=== PATIENT | female | born 2000 | race Caucasian/White ===

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

== ENCOUNTER 2021-03-21 17:45 | Emergency (ER) | payer OTHER, SELFPAY ==
[2021-03-21 17:55] VITALS: BP 130/83; PULSE 81; RESP 18; TEMP 36.4; O2SAT 100
--- NOTE | 2021-03-21 18:04 | ED.FEMALEGU ---
HPI - Female Genitourinary General Chief complaint: Urogenital-Female Stated complaint: UTI symptoms Time Seen by Provider: 03/21/21 17:58 Source: patient Mode of arrival: ambulatory Limitations: no limitations History of Present Illness HPI Narrative: Patient presents with frequent urination, burning sensation started yesterday. Patient denies any fever, chills, nausea, vomiting, flank pain or lower abdominal pain. Patient reports some blood in the urine. History of similar symptoms at 1-1/2 months ago. Patient denies or vaginal bleeding or discharge. Related Data Allergies Allergy/AdvReac Type Severity Reaction Status Date / Time Latex, Natural Rubber Allergy Rash Verified 12/24/20 11:52 Review of Systems Review of Systems: Narrative: CONSTITUTIONAL: Denies fever, chills, or sweats. EYES: Denies visual changes, redness, or discharge. ENT: Denies rhinorrhea, congestion, sore throat, or otalgia. CARDIOVASCULAR: Denies chest pain, palpitations, or edema. RESPIRATORY: Denies cough or dyspnea. GASTROINTESTINAL: Denies abdominal pain, nausea, vomiting, or diarrhea. GENITOURINARY: Denies dysuria or hematuria. SKIN: Denies rash or itching. MUSCULOSKELETAL: Denies back pain, joint pain, or myalgia. NEUROLOGIC: Denies headache, numbness, or weakness. PSYCHIATRIC: Denies anxiety or depression. PMFSH Past Medical History Medical History Asthma Migraines Surgical History Surgical History Hx of tympanostomy tubes Social History Social History Smoking status: Never smoker Alcohol intake: never Substance use: never Gender identity (if verbalized by the patient): Female Exam Narrative: Exam Narrative: General appearance: Well-developed, well-nourished Skin: Normal color Chest and respiratory: Airway patent, no respiratory distress, no accessory muscle use Heart: Regular rate/rhythm Abdomen: Soft, nontender, no organomegaly, quiet bowel sounds Neurologic: Alert and oriented ?3, SERVICE ENGINEER is normal as tested, no gross motor deficit Course Course Emergency Course: Stable MDM - Female Genitourinary MDM Narrative Medical decision making narrative: Classic presentation of cystitis. No blood work-up required at this time. UA ordered. Patient will be discharged on Macrobid and Pyridium. Differential Diagnosis Differential diagnosis: Likely urinary tract infection and cystitis Critical Care Time Critical Care Time Critical Care Time: No Discharge Plan Discharge Clinical Impression: Urinary tract infection Qualifiers: Urinary tract infection type: site unspecified Hematuria presence: with hematuria Qualified Code(s): N39.0 - Urinary tract infection, site not specified Patient Disposition: Home, Self-Care Condition: Stable Instructions: Antibiotic Form, Urinary Tract Infection in Women (ED) Additional Instructions: Return if symptoms are worsening , call your family physician for appointment, take Tylenol as as needed for aches and pain, continue home medications. Prescriptions: New nitrofurantoin monohyd/m-cryst [Macrobid] 100 mg capsule 100 mg PO Q12H 5 Days Qty: 10 RF: 0 phenazopyridine [Pyridium] 200 mg tablet 200 mg PO TID PRN (Reason: pain) Qty: 6 RF: 0 No Action loratadine [Claritin] 10 mg tablet 10 mg PO DAILY PRN (Reason: allergy symptoms) Qty: 10 RF: 0 famotidine [Pepcid] 20 mg tablet 20 mg PO BID Qty: 14 RF: 0 Follow-up/Referrals: Aiden Tyler, [Primary Care Provider] -
[2021-03-21 18:15] VITALS: BP 132/80; PULSE 80; RESP 18; O2SAT 100
[2021-03-21 18:35] LABS: Add Urine Microscopic? YES; Appearance Urine Cloudy (Clear); Bacteria Urine Trace /hpf; Bilirubin Urine Negative (Negative); Blood Urine 2+ (Negative); Color Urine Yellow (Yellow); Glucose Urine UA Negative (Negative); Ketones Urine Negative (Negative); Leukocyte Esterase Ur 3+ LEU/UL (Negative); Mucus Urine Rare /lpf; Nitrate Urine Negative (Negative); Protein Urine 1+ mg/dL (Negative); RBC Urine >75 /hpf (0-2); Specific Grav Ur 1.013 (1.001-1.035); Squamous Epithelial Cell Urine Rare /hpf (Few); Urobilinogen Urine Negative mg/dL (<2.0); WBC Clumps Urine Present /HPF; WBC Urine >75 /hpf
== END 2021-03-21 18:15 | disposition home or self-care (01) ==
LOC: ANHED 18:12
PROVIDERS: Emergency Provider Emergency Medicine; PCP Pediatrics
DX: N39.0 Urinary tract infection, site not specified (principal); J45.909 Unspecified asthma, uncomplicated
CPT/HCPCS: 81001; 87077; 87086; 87088; 87186; 99283

== ENCOUNTER 2021-08-23 01:15 | Emergency (ER) | payer OTHER, SELFPAY ==
[2021-08-23] VITALS (7 sets, daily range): BP systolic 99–111; BP diastolic 42–69; PULSE 74–95; RESP 17–20; TEMP 37.1; O2SAT 98–100
--- NOTE | 2021-08-23 01:38 | ECG_ITS ---
Measurements Intervals [place] Rate: 73 P: 27 [place]: 148 QRS: 29 QRSD: 85 T: 16 QT: 376 QTc: 415 Interpretive Statements SINUS RHYTHM WITH SINUS ARRHYTHMIA BASELINE ARTIFACT- I, II, III, AVR, AVL, AVF, V1, V3-V6 NORMAL ECG Electronically Signed On 08-23-2021 6:55:27 [employer]ICKERTRON CHECKER by Teo Paris D.O.
[2021-08-23] MEDS: SODIUM CHLORIDE 0.9% IV 1,000 ML 999 ML IV CONT (02:07)
[2021-08-23 02:09] LABS: Basophils Percent Auto 0.4 % (0.2-1.2); Eosinophils Absolute Auto 0.3 K/mm3 (0-0.3); Eosinophils Percent Auto 3.8 % (0-4.4); Hematocrit 34.7 % (37.0-47.0); Hemoglobin 12.4 g/dL (12.0-15.0); Immature Granulocyte Absolute 0.03 K/mm3 (0.00-0.031); Immature Granulocyte Percent A 0.4 % (0-0.5); Lymphocytes Absolute Auto 2.13 K/mm3 (0.9-3.2); Lymphocytes Percent Auto 25.4 % (18.3-44.2); Mean Corpuscular HGB Conc 35.7 g/dl (32-36); Mean Corpuscular Hemoglobin 31.2 pg (26-34); Mean Corpuscular Volume 87.2 fl (80-100); Mean Platelet Volume 10.1 fl (7.4-10.4); Monocytes Absolute Auto 0.6 K/mm3 (0.1-0.6); Neutrophils Absolute Auto 5.3 K/mm3 (1.3-6.7); Platelet Count Result 248 k/mm3 (150-375); Red Blood Count 3.98 M/mm3 (4.2-5.4); Red Cell Distribution Width 12.5 % (11.5-14.5); White Blood Count 8.4 K/mm3 (4.5-10.0)
[2021-08-23 02:19] LABS: Alanine Aminotransferase 14 U/L (4-35); Albumin Level 4.1 g/dL (3.7-5.6); Alkaline Phosphatase 45 U/L (45-116); Anion Gap 7 mmol/L (8-16); Aspartate Amino Transferase 27 U/L (14-36); Bilirubin,Total 0.4 mg/dL (0.2-1.3); Blood Urea Nitrogen 11 mg/dL (8-21); Calcium 9.5 mg/dL (8.9-10.7); Carbon Dioxide 23 mmol/L (22-30); Chloride 101 mmol/L (98-107); Estimated CRCL calculation 151 ml/min; Estimated Glomerular Filt Rate > 60; Glucose 96 mg/dL (65-110); Potassium 3.6 mmol/L (3.4-5.0); Sodium 131 mmol/L (134-143)
--- NOTE | 2021-08-23 02:19 | ED.GENADULT ---
HPI - General Adult General Chief complaint: Syncope Stated complaint: syncope Time Seen by Provider: 08/23/21 01:23 History of Present Illness HPI narrative: Patient a 20-year-old female who presents the emergency department with chief complaint of syncopal episode. The patient reports that she is been having some constipation issues and was taking a shower while in the shower started getting lightheaded took a deep breath held it and then briefly passed out. The patient reports afterwards she had to defecate patient states that now she feels a little just generalized weakness afterwards the patient reports no confusion afterwards no loss of bowel or bladder function no generalized shaking afterwards. Patient reports he had no trauma and did not injure herself afterwards. The patient denies vaginal bleeding or vaginal discharge Related Data Home Medications Medication Instructions Recorded Confirmed One-A-Day -1 1 tab-cap PO DAILY 08/23/21 08/23/21 Allergies Allergy/AdvReac Type Severity Reaction Status Date / Time Latex, Natural Rubber Allergy Rash Verified 12/24/20 11:52 Review of Systems Review of Systems: A 10 system review of systems was completed on the patient and is negative except for what is stated in the HPI. Nursing and ancillary documentation was reviewed. [facility] Past Medical History Medical History Asthma Migraines Surgical History Surgical History Hx of tympanostomy tubes Social History Social History Smoking status: Never smoker Alcohol intake: never Substance use: never Gender identity (if verbalized by the patient): Female Exam Narrative: GENERAL: Well-appearing, well-nourished, and in no acute distress. HEAD: Normocephalic, atraumatic. EYES: PERRLA and EOMI. ENT: Nares clear, no rhinorrhea or epistaxis. Mucous membranes moist. NECK: Supple. CHEST: Clear to auscultation. No respiratory distress. HEART: Regular rate and rhythm. No murmur heard. Normal peripheral pulses. ABDOMEN: Soft, nontender, nondistended, normal active bowel sounds. EXTREMITIES: Normal range of motion. No edema. SKIN: Warm, dry, no rash. NEURO: No focal deficits. Alert and oriented x3. PSYCH: Normal mood and affect. Course Course Emergency Course: EKG is sinus rhythm rate of [address] elevation or ST depression Vital Signs Vital signs: Vital Signs Pulse Rate 95 08/23/21 01:24 Respiratory Rate 20 08/23/21 01:24 Pulse Oximetry 100 08/23/21 01:24 Temperature 37.1 C 08/23/21 01:26 Pulse Rate 88 08/23/21 01:35 Respiratory Rate 19 08/23/21 01:34 Blood Pressure 111/69 08/23/21 01:34 Pulse Oximetry 100 08/23/21 01:34 Medical Decision Making Vital Signs Vital Signs: Vital Signs Pulse Rate 95 08/23/21 01:24 Respiratory Rate 20 08/23/21 01:24 Pulse Oximetry 100 08/23/21 01:24 Temperature 37.1 C 08/23/21 01:26 Pulse Rate 88 08/23/21 01:35 Respiratory Rate 19 08/23/21 01:34 Blood Pressure 111/69 08/23/21 01:34 Pulse Oximetry 100 08/23/21 01:34 Lab Data Result diagrams: 08/23/21 02:04 08/23/21 02:04 Labs: Lab Results 08/23/21 08/23/21 08/23/21 Range/Units 02:04 02:04 02:49 WBC 8.4 (4.5-10.0) K/mm3 RBC 3.98 L (4.2-5.4) M/mm3 Hgb 12.4 (12.0-15.0) g/dL Hct 34.7 L (37.0-47.0) % MCV 87.2 (80-100) fl MCH 31.2 (26-34) pg MCHC 35.7 (32-36) g/dl RDW 12.5 (11.5-14.5) % Plt Count 248 (150-375) k/mm3 MPV 10.1 (7.4-10.4) fl Immature Gran % (Auto) 0.4 (0-0.5) % Neut % (Auto) 63.0 (45.5-73.1) % Lymph % (Auto) 25.4 (18.3-44.2) % Schley % (Auto) 7.0 (2.6-8.5) % Eos % (Auto) 3.8 (0-4.4) % Baso % (Auto) 0.4 (0.2-1.2) % Lymph # (Auto) 2.13 (
[2021-08-23 03:00] LABS: Add Urine Microscopic? YES; Appearance Urine Cloudy (Clear); Bacteria Urine 2+ /hpf; Bilirubin Urine Negative (Negative); Blood Urine Negative (Negative); Color Urine Yellow (Yellow); Glucose Urine UA Negative (Negative); Ketones Urine Trace mg/dL (Negative); Leukocyte Esterase Ur Negative LEU/UL (Negative); Mucus Urine Rare /lpf; Nitrate Urine Negative (Negative); Protein Urine Negative (Negative); RBC Urine 0-2 /hpf (0-2); Specific Grav Ur 1.018 (1.001-1.035); Squamous Epithelial Cell Urine Many /hpf (Few); Urobilinogen Urine Negative mg/dL (<2.0); WBC Urine 0-3 /hpf
== END 2021-08-23 03:55 | disposition home or self-care (01) ==
PROVIDERS: Emergency Provider Emergency Medicine; PCP Pediatrics
DX: R55 Syncope and collapse (principal); J45.909 Unspecified asthma, uncomplicated
CPT/HCPCS: 36415; 80053; 81001; 85025; 93005; 96360; 96361; 99283; J7030

== ENCOUNTER → 2021-09-27 09:44 | Outpatient (CLI) | payer OTHER, SELFPAY ==
[2021-09-27 21:23] LABS: SARS-CoV-2 RNA PCR Negative
== END ==
PROVIDERS: Visit Provider Pediatrics
DX: J06.9 Acute upper respiratory infection, unspecified (principal); Z20.822 Contact with and (suspected) exposure to COVID-19
CPT/HCPCS: C9803; U0003; U0005

== ENCOUNTER 2021-10-12 07:17 | Outpatient (RCR) | payer OTHER, SELFPAY ==
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
--- NOTE | 2021-10-14 08:49 | PCPTNOTE ---
Patient did not show up for scheduled appointment this date. Left message regarding her next visit.
--- NOTE | 2021-10-19 13:59 | PCPTNOTE ---
Patient did not show up for scheduled appointment this date. Called and had to leave a message.
--- NOTE | 2021-10-21 13:37 | PCPTNOTE ---
Patient did not show up for scheduled appointment this date. Was starting to call her, when she called 20 mins after here appointment, to see rescheduling her appointment, because, she thought her appointment was later, then, it was because she was stuck at the Dr's office. Patient was told her re-eval is on 10/26/21 at 9am, and if she does not attend she will be discharged.
--- NOTE | 2021-10-26 09:09 | PCPTNOTE ---
Patient called & cancelled scheduled appointment this date due to work. She did not reschedule. She has not f/u with any of her visits.
--- NOTE | 2021-11-02 08:08 | PCPTNOTE ---
Admitting Provider: Attending Provider: Radha Gould MD Patient:Erendira Lindo Date of :2000 Physical Therapy Discharge Note Patient has not returned for any further treatments since initial evaluation on 10/12/2021, therefore she will be discharged at this time. She had a 3 no show or cancelled visits. The goals have been not met due to did not return for her follow up visits. Thank you for referring this patient to [facility]. Please review, sign, date and return this discharge summary PAMELLA. I have been updated about the patient's current status and I agree with discharge from the above service at this time. Referring Physician Date
== END 2021-11-03 08:21 | disposition home or self-care (01) ==
LOC: ANHPT 07:17
PROVIDERS: PCP Obstetrics & Gynecology; Visit Provider Obstetrics & Gynecology
DX: M54.50 Low back pain, unspecified (principal)
CPT/HCPCS: 97110; 97161

== ENCOUNTER → 2021-10-27 09:33 | Outpatient (CLI) | payer OTHER, SELFPAY ==
[2021-10-27 17:57] LABS: SARS-CoV-2 RNA PCR Negative
== END ==
PROVIDERS: PCP Nurse Practitioner Family; Visit Provider Obstetrics & Gynecology
DX: R06.00 Dyspnea, unspecified (principal); Z20.822 Contact with and (suspected) exposure to COVID-19
CPT/HCPCS: C9803; U0003; U0005

== ENCOUNTER 2021-11-08 23:47 | Observation (INO) | payer OTHER, SELFPAY ==
--- NOTE | 2021-11-08 23:47 | OBADM ---
This patient, Erendira Lindo, admitted to the OB room OB Post 116 for observation. Patient/family oriented to hospital policies and general routines including ID bracelet, bed and alarms, visiting hours, pain management, procedures, bathroom and other care routines, personal items, smoking policy, room service/diet, and visiting hours. Patient/Family are encouraged to report perceived risks to care and to ask questions if they do not understand what they are told or what they should do.
[2021-11-09] VITALS: BMI 33.7
[2021-11-09 00:07] VITALS: BP 123/81; PULSE 109
[2021-11-09 00:45] LABS: Add Urine Microscopic? NO; Appearance Urine Clear (Clear); Bilirubin Urine Negative (Negative); Blood Urine Negative (Negative); Color Urine Yellow (Yellow); Glucose Urine UA Negative (Negative); Ketones Urine Negative (Negative); Leukocyte Esterase Ur Negative LEU/UL (NEGATIVE); Nitrate Urine Negative (Negative); Protein Urine Negative (Negative); Specific Grav Ur 1.018 (1.001-1.035); Urobilinogen Urine Negative mg/dL (<2.0)
--- NOTE | 2021-12-02 07:44 | P.PNOB_ITS ---
OB - Triage/Final Diagnosis Visit Information Comments/Additional reasons for admission: I have assessed the risk for this patient, Erendira Lindo, and determined that she would benefit from observation care. Evaluation Laboratory results: Laboratory Tests 11/09/21 00:10 Urine Color Yellow Urine Appearance Clear Urine pH 6.0 Ur Specific [place] 1.018 Urine Protein Negative Urine Glucose (UA) Negative Urine Ketones Negative Ur Blood (Man) Negative Urine Nitrate Negative Urine Bilirubin Negative Urine Urobilinogen Negative Ur Leukocyte Esterase Negative Final Diagnosis (1) False labor: Code(s): O47.9 - False labor, unspecified Status: Acute
== END 2021-11-09 01:10 | disposition home or self-care (01) ==
PROVIDERS: Advanced Practice Midwife; Admitting Provider Obstetrics & Gynecology; PCP Nurse Practitioner Family; Visit Provider Obstetrics & Gynecology
DX: O47.03 False labor before 37 completed weeks of gestation, third trimester (principal); Z3A.26 26 weeks gestation of pregnancy
CPT/HCPCS: 81003; 87086; G0378; G0379

== ENCOUNTER 2021-11-13 00:44 | Outpatient (RCR) | payer OTHER, SELFPAY ==
[2021-11-13 04:17] VITALS: BP 114/64; PULSE 78
== END 2022-02-11 23:59 | disposition home or self-care (01) ==
LOC: ANHOBOP 00:44
PROVIDERS: PCP Nurse Practitioner Family; Visit Provider Obstetrics & Gynecology
DX: O36.8120 Decreased fetal movements, second trimester, not applicable or unspecified (principal); O99.892 Other specified diseases and conditions complicating childbirth; Z3A.27 27 weeks gestation of pregnancy
CPT/HCPCS: 59025

== ENCOUNTER 2021-12-20 14:53 | Observation (INO) | payer OTHER, SELFPAY ==
[2021-12-20 15:15] VITALS: BP 111/77; PULSE 129
--- NOTE | 2021-12-20 15:15 | OBADM ---
This patient, Erendira Lindo, admitted to the OB room OB Post 117 for observation. Patient/family oriented to hospital policies and general routines including ID bracelet, bed and alarms, visiting hours, pain management, procedures, bathroom and other care routines, personal items, smoking policy, room service/diet, and visiting hours. Patient/Family are encouraged to report perceived risks to care and to ask questions if they do not understand what they are told or what they should do.
[2021-12-20 15:30] VITALS: BP 120/78; PULSE 108
[2021-12-20 15:56] LABS: Basophils Percent Auto 0.2 % (0.2-1.2); Eosinophils Absolute Auto 0.2 K/mm3 (0-0.3); Hematocrit 32.8 % (37.0-47.0); Hemoglobin 11.3 g/dL (12.0-15.0); Immature Granulocyte Absolute 0.06 K/mm3 (0.00-0.031); Immature Granulocyte Percent A 0.7 % (0-0.5); Lymphocytes Absolute Auto 1.78 K/mm3 (0.9-3.2); Lymphocytes Percent Auto 19.9 % (18.3-44.2); Mean Corpuscular HGB Conc 34.5 g/dl (32-36); Mean Corpuscular Hemoglobin 29.7 pg (26-34); Mean Corpuscular Volume 86.3 fl (80-100); Mean Platelet Volume 10.4 fl (7.4-10.4); Monocytes Absolute Auto 0.9 K/mm3 (0.1-0.6); Monocytes Percent Auto 10.3 % (2.6-8.5); Neutrophils Percent Auto 66.9 % (45.5-73.1); Platelet Count Result 264 k/mm3 (150-375); Red Cell Distribution Width 12.5 % (11.5-14.5)
[2021-12-20 16:10] LABS: Alanine Aminotransferase 11 U/L (4-35); Albumin Level 3.4 g/dL (3.5-5.1); Alkaline Phosphatase 90 U/L (38-126); Anion Gap 6 mmol/L (8-16); Aspartate Amino Transferase 21 U/L (14-36); Bilirubin,Total 0.2 mg/dL (0.2-1.3); Blood Urea Nitrogen 9 mg/dL (7-17); Carbon Dioxide 23 mmol/L (22-30); Chloride 105 mmol/L (98-107); Estimated Glomerular Filt Rate > 60; Glucose 108 mg/dL (65-110); Potassium 3.9 mmol/L (3.4-5.0); Sodium 134 mmol/L (137-145); Uric Acid 4.3 mg/dL (2.5-7.5)
[2021-12-20 16:19] LABS: Add Urine Microscopic? YES; Appearance Urine Cloudy (Clear); Bacteria Urine Trace /hpf; Bilirubin Urine Negative (Negative); Blood Urine Negative (Negative); Color Urine Yellow (Yellow); Glucose Urine UA Negative (Negative); Ketones Urine Negative (Negative); Leukocyte Esterase Ur Trace LEU/UL (NEGATIVE); Mucus Urine Rare /lpf; Nitrate Urine Negative (Negative); Protein Urine Negative (Negative); Squamous Epithelial Cell Urine Few /hpf (Few); Urobilinogen Urine Negative mg/dL (<2.0)
[2021-12-20 16:22] LABS: Creatinine Urine 50.2 mg/dL; Total Protein Urine Random 15 mg/dL
--- NOTE | 2021-12-31 09:38 | PM.OBTRLD ---
OB - Triage/Final Diagnosis Visit Information Comments/Additional reasons for admission: I have assessed the risk for this patient, Erendira Lindo, and determined that she would benefit from observation care. Evaluation Laboratory results: Laboratory Tests 12/20/21 12/20/21 12/20/21 15:45 15:45 15:45 WBC 9.0 RBC 3.80 L Hgb 11.3 L Hct 32.8 L MCV 86.3 MCH 29.7 MCHC 34.5 RDW 12.5 Plt Count 264 MPV 10.4 Immature Gran % (Auto) 0.7 H Neut % (Auto) 66.9 Lymph % (Auto) 19.9 Early % (Auto) 10.3 H Eos % (Auto) 2.0 Baso % (Auto) 0.2 Lymph # (Auto) 1.78 Early # (Auto) 0.9 H Eos # (Auto) 0.2 Baso # (Auto) 0.0 Abs Immat Gran (auto) 0.06 H Absolute Neuts (auto) 6.0 Absolute Nucleated RBC 0.0 Nucleated RBC % 0.0 Sodium 134 L Potassium 3.9 Chloride 105 Carbon Dioxide 23 Anion Gap 6 L BUN 9 Creatinine 0.60 L Estim Creat Clear Calc Not Reportable Estimated GFR > 60 Glucose 108 Uric Acid 4.3 Calcium 9.0 Total Bilirubin 0.2 AST 21 ALT 11 Alkaline Phosphatase 90 Total Protein 6.0 L Albumin 3.4 L Urine Color Yellow Urine Appearance Cloudy H Urine pH 7.0 Ur Specific Benton 1.010 Urine Protein Negative Urine Glucose (UA) Negative Urine Ketones Negative Ur Blood (Man) Negative Urine Nitrate Negative Urine Bilirubin Negative Urine Urobilinogen Negative Ur Leukocyte Esterase Trace H Urine RBC 3-5 H Urine WBC 4-6 H Ur Squamous Epith Cells Few Urine Bacteria Trace Urine Mucus Rare U Random Total Protein Urine Creatinine Protein/Creat Ratio 2 12/20/21 15:45 WBC RBC Hgb Hct MCV MCH MCHC RDW Plt Count MPV Immature Gran % (Auto) Neut % (Auto) Lymph % (Auto) Early % (Auto) Eos % (Auto) Baso % (Auto) Lymph # (Auto) Early # (Auto) Eos # (Auto) Baso # (Auto) Abs Immat Gran (auto) Absolute Neuts (auto) Absolute Nucleated RBC Nucleated RBC % Sodium Potassium Chloride Carbon Dioxide Anion Gap BUN Creatinine Estim Creat Clear Calc Estimated GFR Glucose Uric Acid Calcium Total Bilirubin AST ALT Alkaline Phosphatase Total Protein Albumin Urine Color Urine Appearance Urine pH Ur Specific Benton Urine Protein Urine Glucose (UA) Urine Ketones Ur Blood (Man) Urine Nitrate Urine Bilirubin Urine Urobilinogen Ur Leukocyte Esterase Urine RBC Urine WBC Ur Squamous Epith Cells Urine Bacteria Urine Mucus U Random Total Protein 15 Urine Creatinine 50.2 Protein/Creat Ratio 2 0.30 H Final Diagnosis (1) Fall: Code(s): W19.XXXA - Unspecified fall, initial encounter Status: Acute
== END 2021-12-20 21:09 | disposition home or self-care (01) ==
PROVIDERS: Advanced Practice Midwife; Admitting Provider Obstetrics & Gynecology; PCP Nurse Practitioner Family; Visit Provider Obstetrics & Gynecology
DX: O26.893 Other specified pregnancy related conditions, third trimester (principal); W19.XXXA Unspecified fall, initial encounter; Z3A.32 32 weeks gestation of pregnancy
CPT/HCPCS: 36415; 80053; 81001; 82570; 84156; 84550; 85025; 87086; 87088; G0378; G0379

== ENCOUNTER 2021-12-28 23:28 | Observation (INO) | payer OTHER, SELFPAY ==
--- NOTE | 2021-12-28 22:11 | OBADM ---
This patient, Erendira Lindo, admitted to the OB room OB Post 115 for observation. Patient/family oriented to hospital policies and general routines including ID bracelet, bed and alarms, visiting hours, pain management, procedures, bathroom and other care routines, personal items, smoking policy, room service/diet, and visiting hours. Patient/Family are encouraged to report perceived risks to care and to ask questions if they do not understand what they are told or what they should do.
[2021-12-28 22:29] VITALS: BP 119/65; PULSE 126
[2021-12-28 22:30] VITALS: TEMP 36.9; BMI 35.1
[2021-12-28 23:48] LABS: Add Urine Microscopic? YES; Appearance Urine Cloudy (Clear); Bacteria Urine 1+ /hpf; Bilirubin Urine Negative (Negative); Blood Urine Negative (Negative); Color Urine Yellow (Yellow); Glucose Urine UA Negative (Negative); Ketones Urine Negative (Negative); Leukocyte Esterase Ur Trace LEU/UL (NEGATIVE); Nitrate Urine Negative (Negative); Protein Urine Negative (Negative); RBC Urine 0-2 /hpf (0-2); Squamous Epithelial Cell Urine Moderate /hpf (Few); Urobilinogen Urine Negative mg/dL (<2.0)
[2021-12-28 23:58] LABS: Specific Grav Ur 1.004 (1.001-1.035)
--- NOTE | 2021-12-30 16:52 | P.PNOB_ITS ---
OB - Triage/Final Diagnosis Visit Information Date of evaluation: 12/28/21 Reason for evaluation: threatened labor Comments/Additional reasons for admission: I have assessed the risk for this patient, Erendira Lindo, and determined that she would benefit from ob servation care. Evaluation Laboratory results: Laboratory Tests 12/28/21 23:31 Urine Color Yellow Urine Appearance Cloudy H Urine pH 6.0 Ur Specific [place] 1.004 Urine Protein Negative Urine Glucose (UA) Negative Urine Ketones Negative Ur Blood (Man) Negative Urine Nitrate Negative Urine Bilirubin Negative Urine Urobilinogen Negative Ur Leukocyte Esterase Trace H Urine RBC 0-2 Urine WBC 4-6 H Ur Squamous Epith Cells Moderate H Urine Bacteria 1+ H
== END 2021-12-29 00:53 | disposition home or self-care (01) ==
LOC: ANHOBOP 23:28 → ANHOBPP 23:28
PROVIDERS: Advanced Practice Midwife; Admitting Provider Obstetrics & Gynecology; PCP Nurse Practitioner Family; Visit Provider Obstetrics & Gynecology
DX: O47.03 False labor before 37 completed weeks of gestation, third trimester (principal); Z3A.33 33 weeks gestation of pregnancy
CPT/HCPCS: 81001; 84112; 87086; G0378; G0379

== ENCOUNTER 2022-01-26 16:55 | Observation (INO) | payer OTHER, SELFPAY ==
--- NOTE | 2022-01-28 07:42 | P.PNOB_ITS ---
OB - Triage/Final Diagnosis Visit Information Date of evaluation: 01/27/22 Reason for evaluation: threatened labor Comments/Additional reasons for admission: I have assessed the risk for this patient, Erendira Lindo, and determined that she would benefit from ob servation care.
== END 2022-01-26 18:45 | disposition home or self-care (01) ==
PROVIDERS: Admitting Provider Obstetrics & Gynecology; PCP Nurse Practitioner Family; Visit Provider Obstetrics & Gynecology
DX: O42.90 Premature rupture of membranes, unspecified as to length of time between rupture and onset of labor, unspecified weeks of gestation (principal); O26.899 Other specified pregnancy related conditions, unspecified trimester; R10.2 Pelvic and perineal pain; Z3A.00 Weeks of gestation of pregnancy not specified
CPT/HCPCS: 84112; G0378; G0379

== ENCOUNTER 2022-02-03 16:03 | Inpatient (IN) | payer OTHER, SELFPAY ==
--- OUTSIDE RECORDS SUMMARY | 2022-02-03 16:10 | XMS_ITS | Encounter Summary ---
:2000 Author Care Team Providers Name Role Phone Anneliese Malik [facility] Primary Care Provider [phone] Reason for Visit None recorded. Assessment and Plan 1. Maternal obesity complicating , childbirth and the puerperium, antepartum ? US, obstetric, follow-up Discussion Note: None recorded.Patient educational handouts: No information available. Plan of Care Reminders Provider Appointments Ob Routine Bianca Cage, 02/09/2022 CNM 10:45AM Lab None ? ? recorded. Referral None ? ? recorded. Procedures None ? ? recorded. Surgeries None ? ? recorded. Imaging , [place] Obstetric, Follow-up 01/28/2022 Medications Name Start Date ? ? albuterol sulfate HFA 90 mcg/actuation aerosol inhaler ? One A Day Women's DHA ? Qvar RediHaler 40 mcg/actuation HFA breath activated a erosol ? INHALE 2 PUFFS BY MOUTH TWICE DAILY sertraline 50 mg tablet ? zolpidem 5 mg tablet ? Take 1 tablet every day by oral route. Medications Administered None recorded. Vitals None recorded. Results Lab Results None recorded. Allergies Code Code System Name Reaction Severity Onset
--- OUTSIDE RECORDS SUMMARY | 2022-02-03 16:10 | XMS_ITS ---
:2000 Author Care Team Providers Name Role Phone PATIRCK COUGHLIN [facility] Primary Care Provider [phone] Allergies Code Code System Name Reaction Severity Status Onset NKDA ? Notes: Latex gloves red and itch y skin Medications Name Status Start Date Stop Date ? ? albuterol sulfate HFA 90 mcg/actuation aerosol inhaler Active ? Not available Inhale 2 puffs every 4 hours by inhalation route. Active ? Not available Problems Name Status Onset Date Source ? Anxiety Active 10/26/2021 ? Asthma Active 10/26/2021 ? Fibromyalgia Active 10/26/2021 ? Heartburn Active 10/26/2021 ? Active 10/26/2021 ? Procedures Notes: tubes both ears, multiple times as a child Results Lab Results None recorded. Past Encounters 10/26/2021 Asthma; ; Heartburn Patrick Coughlin, [employer]: [address] [place] [address], Ph. Social History Tobacco Smoking Status Never Smoker Vaccine List None recorded. Plan of Care Reminders Provider Appointments None ? ? recorded. Lab None ? ? recorded. Referral None ? ? recorded. Procedures None ? ?
--- OUTSIDE RECORDS SUMMARY | 2022-02-03 16:10 | XMS_ITS | Encounter Summary ---
:2000 Author Care Team Providers Name Role Phone Anneliese Malik [facility] Primary Care Provider [phone] Reason for Visit OB visit OB [id number] EDC 02/10/2022 LMP 05/09/2021 Assessment and Plan Assessment Note Patient is _35__weeks . Dis cussed plan. 1. Routine care Discussion Note: None recorded.Patient educational handouts: No information available. Plan of Care Reminders Provider Appointments Ob Routine Bianca Cage, 02/09/2022 CNM 10:45AM Lab None ? ? recorded. Referral None ? ? recorded. Procedures None ? ? recorded. Surgeries None ? ? recorded. Imaging None ? ? recorded. Medications Name Start Date ? ? albuterol sulfate HFA 90 mcg/actuation aerosol inhaler ? One A Day Women's DHA ? Qvar RediHaler 40 mcg/actuation HFA breath activated a erosol ? INHALE 2 PUFFS BY MOUTH TWICE DAILY sertraline 50 mg tablet ? zolpidem 5 mg tablet ? Take 1 tablet every day by oral route. Medications Administered None recorded. Vitals Height Weight BMI Blood Pressure 5 ft 2 in 206 lbs 37.7 kg/m2 121/77 mm[Hg] Results Lab Results None recorded. Allergies
--- OUTSIDE RECORDS SUMMARY | 2022-02-03 16:10 | XMS_ITS ---
:2000 Author Care Team Providers Name Role Phone PATRICK COUGHLIN [facility] Primary Care Provider [phone] Allergies Code Code System Name Reaction Severity Status Onset 7488088 RxNorm Latex ? ? Active ? Medications Name Status Start Date Stop Date ? ? albuterol sulfate HFA 90 Active ? Not destiny ilable mcg/actuation aerosol inhaler Aurovela Fe 1-20 (28) 1 mg-20 Completed ? mcg (21)/75 mg (7) tablet ovjbnjbkda-ssfnscucknzkn-botldvz Completed ? 09/29/2021 e 50 mg-325 mg-40 mg tablet cefuroxime axetil 500 mg tablet Completed ? 04/15/2021 cyclobenzaprine 10 mg tablet Completed ? duloxetine 20 mg capsule,delayed Completed ? 12/24/2021 release erythromycin 5 mg/gram (0.5 %) Completed ? 1 eye ointment escitalopram 10 mg tablet Completed ? 2020 famotidine 20 mg tablet Completed ? 07/09/20 Fioricet 50 mg-300 mg-40 mg capsule Completed ? 09/29/2021 Take one tablet as needed for migraines. Maximum use of 3 time s per week. fluconazole 150 mg tablet Completed ? 2020 fluoxetine 10 mg capsule Active 08/28/2018 Not destiny ilable take 2 capsule by oral route every day fluoxetine 20 mg capsule Completed ? 020 Heartburn Relief (famotidine) 10 Completed ? 07/15/2020 mg tablet hydrocortisone 2.5 % topical Completed ? ointment hydroxyzine HCl 50 mg tablet Completed ? ketoco
--- OUTSIDE RECORDS SUMMARY | 2022-02-03 16:10 | XMS_ITS | Encounter Summary ---
:2001 Author Care Team Providers Name Role Phone Anneliese Malik [facility] Primary Care Provider [phone] Reason for Visit OB visit Ob [id number] EDC 02/10/2022 LMP 05/09/2021 Assessment and Plan Assessment Note Patient is _38__weeks . Dis cussed plan. 1. Routine care [...] BMI Blood Pressure 5 ft 2 in 212 lbs 38.8 kg/m2 126/81 mm[Hg] Results Lab Results None recorded. Allergies
--- OUTSIDE RECORDS SUMMARY | 2022-02-03 16:10 | XMS_ITS | Encounter Summary ---
:2000 Author Care Team Providers Name Role Phone Anneliese Malik [facility] Primary Care Provider [phone] Reason for Visit OB visit OB [id number] EDC 02/10/2022 LMP 05/09/2021 Assessment and Plan Assessment Note Patient is _36__weeks . Dis cussed plan. 1. Routine care [...] BMI Blood Pressure 5 ft 2 in 207 lbs 37.9 kg/m2 122/86 mm[Hg] Results Lab Results None recorded. Allergies
--- OUTSIDE RECORDS SUMMARY | 2022-02-03 16:10 | XMS_ITS | Encounter Summary ---
:2000 Author Care Team Providers Name Role Phone Anneliese Malik [facility] Primary Care Provider [phone] Reason for Visit OB visit Glucose / 28w4d Assessment and Plan 1. Routine care Discussion Note: None recorded.Patient educational handouts: No information available. Plan of Care Reminders Provider Appointments Ob Routine Bianca De La Cruz [place], 02/09/2022 CNM 10:45AM Lab None ? ? [...] BMI Blood Pressure 5 ft 2 in 193 lbs 35.3 kg/m2 123/78 mm[Hg] Results Lab Results None recorded. Allergies Code Code System Name Reaction Severity Onset [id number] RxNorm Latex ? ?
--- OUTSIDE RECORDS SUMMARY | 2022-02-03 16:10 | XMS_ITS | Encounter Summary ---
:2000 Author Care Team Providers Name Role Phone Anneliese Malik [facility] Primary Care Provider [phone] Reason for Visit OB visit [id number] EDC 02/10/2022 Assessment and Plan Assessment Note Patient is _33_weeks . Disc ussed plan. 1. Routine care Discussion Note: None [...] BMI Blood Pressure 5 ft 2 in 198 lbs 36.2 kg/m2 107/72 mm[Hg] Results Lab Results None recorded. Allergies Code Code Syste
[2022-02-03 16:51] VITALS: BMI 37.7
[2022-02-03] MEDS: DINOPROSTONE 10 MG VAG INSERT VAGINAL (16:53)
--- NOTE | 2022-02-03 17:06 | LDADM ---
This patient, Erendira Lindo, was admitted to Labor/Delivery/Recovery 109 on 02/03/22 at 16:03. Plans for labor, pain management and were discussed with patient. Patient/family oriented to hospital policies and general routines including ID bracelet, bed and alarms, visiting hours, pain management, procedures, bathroom and other care routines, personal items, smoking policy, room service/diet and guest tray routines, security routines, and visiting hours. Patient/Family are encouraged to report perceived risks to care and to ask questions if they do not understand what they are told or what they should do. See OBIX for further documentation.
[2022-02-03 17:18] LABS: Basophils Percent Auto 0.4 % (0.2-1.2); Eosinophils Absolute Auto 0.2 K/mm3 (0-0.3); Eosinophils Percent Auto 2.5 % (0-4.4); Hematocrit 33.8 % (37.0-47.0); Hemoglobin 11.1 g/dL (12.0-15.0); Immature Granulocyte Absolute 0.05 K/mm3 (0.00-0.031); Immature Granulocyte Percent A 0.6 % (0-0.5); Lymphocytes Absolute Auto 2.01 K/mm3 (0.9-3.2); Lymphocytes Percent Auto 25.4 % (18.3-44.2); Mean Corpuscular HGB Conc 32.8 g/dl (32-36); Mean Corpuscular Hemoglobin 27.8 pg (26-34); Mean Corpuscular Volume 84.7 fl (80-100); Mean Platelet Volume 11.9 fl (7.4-10.4); Monocytes Absolute Auto 0.8 K/mm3 (0.1-0.6); Monocytes Percent Auto 10.4 % (2.6-8.5); Neutrophils Absolute Auto 4.8 K/mm3 (1.3-6.7); Neutrophils Percent Auto 60.7 % (45.5-73.1); Platelet Count Result 255 k/mm3 (150-375); Red Blood Count 3.99 M/mm3 (4.2-5.4); Red Cell Distribution Width 13.5 % (11.5-14.5); White Blood Count 7.9 K/mm3 (4.5-10.0)
[2022-02-03 17:30] VITALS: TEMP 36.7
[2022-02-03 17:47] VITALS: BP 124/82; PULSE 91
[2022-02-03 18:00] VITALS: BP 114/75; PULSE 77
[2022-02-03 18:30] VITALS: BP 120/76; PULSE 76
[2022-02-03 19:00] VITALS: BP 123/79; PULSE 85
--- NOTE | 2022-02-03 19:37 | WPDANESEPP ---
Anes - Eval Pre Procedure Date/Time: 02/03/22 19:37 Pre Op Diagnosis: Induction of Labor Patient Data Age: 21 Gender: F Height: 1.6 m Weight: 96.5 kg Last Vital Signs Temp 36.7 C 02/03/22 17:30 Pulse 85 02/03/22 19:00 BP 123/79 02/03/22 19:00 Allergies Allergy/AdvReac Type Severity Reaction Status Date / Time Latex, Natural Rubber Allergy Rash Verified 01/11/22 14:23 diphenhydramine AdvReac Anxiety Verified 02/03/22 16:57 [From Benadryl] Home Medications Medication Instructions Recorded Confirmed Type One-A-Day -1 1 tab-cap PO DAILY 08/23/21 02/03/22 History sertraline 50 mg PO DAILY 01/11/22 01/11/22 History albuterol sulfate 1 puff INHALATION DAILY PRN 02/03/22 02/03/22 History zolpidem 5 mg PO HS PRN 02/03/22 02/03/22 History Laboratory Tests 02/03/22 02/03/22 02/03/22 16:48 16:48 16:48 WBC 7.9 K/mm3 K/mm3 (4.5-10.0) RBC 3.99 M/mm3 L M/mm3 (4.2-5.4) Hgb 11.1 g/dL L g/dL (12.0-15.0) Hct 33.8 % L % (37.0-47.0) MCV 84.7 fl fl (80-100) MCH 27.8 pg pg (26-34) MCHC 32.8 g/dl g/dl (32-36) RDW 13.5 % % (11.5-14.5) Plt Count 255 k/mm3 k/mm3 (150-375) MPV 11.9 fl H fl (7.4-10.4) Immature Gran % (Auto) 0.6 % H % (0-0.5) Neut % (Auto) 60.7 % % (45.5-73.1) Lymph % (Auto) 25.4 % % (18.3-44.2) Holt % (Auto) 10.4 % H % (2.6-8.5) Eos % (Auto) 2.5 % % (0-4.4) Baso % (Auto) 0.4 % % (0.2-1.2) Lymph # (Auto) 2.01 K/mm3 K/mm3 (0.9-3.2) Holt # (Auto) 0.8 K/mm3 H K/mm3 (0.1-0.6) Eos # (Auto) 0.2 K/mm3 K/mm3 (0-0.3) Baso # (Auto) 0.0 K/mm3 K/mm3 (0.0-0.1) Abs Immat Gran (auto) 0.05 K/mm3 H K/mm3 (0.00-0.031) Absolute Neuts (auto) 4.8 K/mm3 K/mm3 (1.3-6.7) Absolute Nucleated RBC 0.0 K/mm3 K/mm3 (0.0-0.012) Nucleated RBC % 0.0 % % (0.0-0.2) RPR Pending Blood Type A Positive Antibody Screen Negative Patient hx anesthesia problems: none Family hx anesthesia problems: none Results Review: All pre-operative results and documents have been reviewed as part of the pre-operative evaluation. [facility] Past Medical History Medical History (Updated 02/03/22 @ 19:42 by Claudia Garcia CRNA) Anxiety and depression Asthma Eczema Fibromyalgia Migraines Obese Surgical History Surgical History Hx of tympanostomy tubes Family History Family History Mother Chronic obstructive pulmonary disease Asthma Lupus Pacemaker Depression Multiple sclerosis A-fib Father Diabetes mellitus Kidney failure Anxiety Gout Sibling Asthma Sibling Asperger's disorder Autism Asthma Social History Social History Smoking status: Never smoker Alcohol intake: never Substance use: never Gender identity (if verbalized by the patient): Female Spiritual care concerns: No Exam Day of Procedure 02/03/22 19:37 Patient weight: obese Heart: regular rate and rhythm Lungs: normal air movement Airway: Mallampati scale class II Neurological: alert and oriented
[2022-02-03 23:01] VITALS: BP 137/86; PULSE 109
[2022-02-04] VITALS (90 sets, daily range): BP systolic 101–156; BP diastolic 44–108; PULSE 56–144; RESP 16–18; TEMP 36.3–36.9; O2SAT 95–100
[2022-02-04] MEDS: fentaNYL CITRATE INJ (*CRX) 100 MCG/2 ML VIAL 50 MCG IV PUSH (03:02)
[2022-02-04] MEDS: fentaNYL CITRATE INJ (*CRX) 100 MCG/2 ML VIAL IV PUSH ×2 (04:00→05:11)
[2022-02-04] MEDS: LACTATED RINGERS 1,000 ML 125 ML IV CONT ×2 (05:11→06:44)
[2022-02-04 06:30] LABS: Rapid Plasma Reagin Non-Reactive (NonReactive)
--- NOTE | 2022-02-04 06:58 | WPDOBADMIT ---
Obstetrics - Admit Note Admission Note: record reviewed. No pertinent additions to the history and/or any subsequent changes in the physical findings that are not consistent with the expected course of the were found. Admitted to labor for elective induction of labor. AROM moderate with clear fluid. 4/80/-2. Anticipate vaginal delivery. Additions to the history and/or subsequent changes in the physical findings follow. None.
[2022-02-04] MEDS: OXYTOCIN 30 UNITS/NS 500 ML 30 UNITS/500 ML BAG IV CONT (07:08)
[2022-02-04] MEDS: SODIUM CHLORIDE 0.9% IV 300 ML 600 ML I-UTERINE (08:45)
[2022-02-04] MEDS: ONDANSETRON INJ 4 MG/2 ML VIAL IV PUSH (08:51)
--- NOTE | 2022-02-04 10:42 | PM.OBPRVD ---
OB - Delivery Note Procedure Delivery date: 02/04/22 Procedure: Vaginal delivery Induction method: AROM, Per Pitocin Protocol and Per Cervidil Protocol Delivery monitor: External FHT, External Uterine and Internal Uterine Route of delivery: Laceration Description: None Specimen: Yes Quantitative Blood Loss (ml): 250 Anesthesia type: Epidural Disposition: Floor [place] Baby Date of : 02/04/22 Time of : 10:29 Weeks of gestation at delivery: 39 Infant gender: Female Weight (pounds): 6 Weight (ounces): 13 presentation: vertex position: Right Occiput Anterior Placenta delivery description: Spontaneous Cord Vessel Description: 3 Vessels, Loose, Reduced, Clamped/Cut, Delayed Cord Clamping and Around Extremity (x1) score one minute: 9 score five minutes: 9 Narrative: Mother and baby skin to skin in stable condition.
[2022-02-04] MEDS: OXYTOCIN 30 UNITS/NS 500 ML 30 UNITS/500 ML BAG 125 UNITS IV CONT (11:03)
--- NOTE | 2022-02-04 13:07 | OBPPTRN ---
Patient transferred to post room # 284 via wheelchair. Support person present. Oriented to unit, room, information board, rooming in, admission packet and security measures. Patient verbalizes understanding.
[2022-02-04] MEDS: IBUPROFEN 600 MG TABLET PO (15:41)
--- NOTE | 2022-02-04 17:06 | PC.NURSE ---
Breast feeding note; mother reports she has a Lansinoh pump given to her by the [facility]. She and FOB have been offered a Medella pump available from office, knowing that if they accept it, they will be billed $150. but will have options of how to pay for it, including a payment plan. Parents will advice nursing staff if they desire to purchase the pump. They are seeking family assistance as well as seeking to borrow a pump from friends.
[2022-02-04] MEDS: ACETAMINOPHEN 325 MG TABLET 650 MG PO (20:00)
[2022-02-05 04:51] LABS: Hematocrit 29.6 % (37.0-47.0); Hemoglobin 9.3 g/dL (12.0-15.0)
[2022-02-05] MEDS: IBUPROFEN 600 MG TABLET PO (05:11)
--- NOTE | 2022-02-05 08:05 | PM.OBPNVD ---
OB - PN: Subj Subjective Date/time seen: 02/05/22 08:05 Patient comments: no complaints baby status: doing well OB - PN: Obj Data Labs CBC & Chem 7: 02/05/22 04:05 Labs: Laboratory Results - last 24 hr 02/05/22 04:05 Hgb 9.3 L Hct 29.6 L OB - PN A/P Plan day: 1 Plan: routine care and discharge home Time Spent With Patient Time: Total time spent is greater than 50% in coordination of care (as documented) at patient's floor/unit and/or counseling patient: Review of Systems Review of Systems: All systems reviewed & are unremarkable except as noted in HPI and below Exam Const: General: cooperative, healthy appearing and comfortable
--- NOTE | 2022-02-05 08:07 | PM.OBDSVD ---
DS: Admitting Diagnosis Discharge Date 02/05/22 Admitting Diagnosis IOL OB - DS: Summary OB Procedures : None OB Procedures Intrapartum: Spontaneous Vag Delivery OB Procedures: : None Time Spent with Patient Time attestation: Total time spent providing and/or coordinating discharge services: DS: Data Data Completed and Pending Pending studies at discharge: Pending at discharge 02/04/22 10:33 Surgical [PTH] Routine Labs on day of discharge: Labs from last 24 hours 02/05/22 04:05 Hgb 9.3 L Hct 29.6 L Discharge Plan Discharge Attending physician on discharge: Davey Lakhani Discharging Clinician: Blanquita Cage Patient Disposition: Home, Self-Care Activity: pelvic rest Diet: regular Discharge Instructions: Education: Mom and Baby Guide Given to: Mother Follow-Up: Call your delivering provider's office for an appointment to be seen in: 1 Week [facility]. Appointment Date/Time: February 07, 2022 at 10:00 am What to expect at your follow-up visit: Blood Pressure Check Physical Assessment Call [phone] if you are unable to keep your appointment time. BREAST CARE: * Wear a snug supportive bra. * For engorgement discomfort: Breast Feeding: * Apply warm moist washcloths * Express milk as needed to relieve engorgement * Wear loose clothing Bottle Feeding: * May apply ice packs * For sore nipples: * Identify correct latch-on * Apply warm moist washcloths before and after nursing * Air dry nipples after nursing * May apply Lansinoh cream to nipples EPISIOTOMY/PERINEAL CARE: * Until bleeding stops, use your bertha bottle after urinating * Change your pad frequently throughout the day * You may take sitz baths several times a day (fill your bathtub with warm water and soak for 20 minutes.) Do NOT bathe in the water * No tub baths until seen by your physician - You may shower ACTIVITY: * Rest as much as possible. * Do not exercise or lift anything heavier than your baby (such as laundry or other children.) * Avoid stairs or driving as much as possible. * Do not put anything into the vagina. No douching, tampons, or sexual activity until seen by physician. NOTIFY PHYSICIAN IF YOU HAVE ANY QUESTIONS OR IF ANY OF THE FOLLOWING SYMPTOMS OCCUR: * If your vaginal area becomes red, swollen, or more painful than what you have experienced in the hospital. * If your vaginal bleeding becomes foul smelling. * If your vaginal bleeding becomes more heavy than a period or if your bleeding changes from the color it is now to bright red. However, you may pass an occasional walnut-sized clot once or twice for the first week . * If you experience a sharp, shooting pain in your calves. * If you discover a hard, reddened area on your breast or if you experience flu-like symptoms. DIET: * Eat regular, well-balanced meals. * Drink plenty of fluids daily. If , drink to thirst. Patient Instructions: Antibiotic Form, Caring for Your Baby (DC), Vaginal Delivery (DC) Stand Alone Forms: General Discharge Information Follow-up/Referrals: Blanquita Cage CNM [Certified Nurse Director Of Dietary] - 4 Weeks Discharge Medications: Continued One-A-Day -1 1 tab-cap PO DAILY RF: 0 sertraline 50 mg Tablet 50 mg PO DAILY RF: 0 albuterol sulfate 90 mcg/actuation HFA aerosol inhaler 1 puff INHALATION DAILY PRN (Reason: asthma) RF: 0 Discontinued zolpidem 5 mg tablet 5 mg PO HS PRN (Reason: Sleep) RF: 0 Date of admission: 02/03/22 16:03 Primary Care Provider: King,Anneliese Cassidy Admitting Provider: Davey Lkahani Attending physician on admission: Davey Lakhani Condition: Stable
[2022-02-05] MEDS: DOCUSATE SODIUM 100 MG CAPSULE PO (09:43)
[2022-02-05] MEDS: ACETAMINOPHEN 325 MG TABLET 650 MG PO (09:43)
[2022-02-05] MEDS: MULTIVIT/MIN/PREN/FOL AC/IRON TABLET 1 TAB PO (09:43)
[2022-02-05] MEDS: SERTRALINE HCL 50 MG TABLET PO (09:43)
[2022-02-05 09:56] VITALS: BP 115/72; PULSE 91; RESP 14; RESP 16; TEMP 36.3; O2SAT 100
[2022-02-05] MEDS: MEASLES,MUMPS,RUBELLA VACCINE 0.5 ML VIAL SUB-Q (13:59)
== END 2022-02-05 14:10 | disposition home or self-care (01) | DRG 560 ==
LOC: ANHLDR 16:08 → ANHOB2 02-04 13:16
PROVIDERS: Advanced Practice Midwife; Admitting Provider Obstetrics & Gynecology; PCP Nurse Practitioner Family; Visit Provider Obstetrics & Gynecology
DX: O69.82X0 Labor and delivery complicated by other cord entanglement, without compression, not applicable or unspecified (principal); Z37.0 Single live birth; Z3A.39 39 weeks gestation of pregnancy; O99.344 Other mental disorders complicating childbirth; F41.9 Anxiety disorder, unspecified; F32.A Depression, unspecified
CPT/HCPCS: 36415; 85014; 85018; 85025; 86592; 86850; 86900; 86901; 88307; 90710; A9270; J2405; J2590; J2795; J3010; J7030; J7120

== ENCOUNTER 2022-11-14 15:16 | Emergency (ER) | payer OTHER, SELFPAY ==
--- NOTE | ~2022-11-14 | XR_ITS ---
EXAMINATION: XR chest 1V portable DATE: 11/14/2022 17:09 INDICATION: Cough. Sinus infection. TECHNIQUE: A single frontal view of the chest was obtained. COMPARISON: Chest single view 09/20/2019 FINDINGS: There is no pneumonia, pleural effusion, or pneumothorax. The heart size is normal. IMPRESSION: 1. No acute cardiopulmonary disease. Reviewed, dictated and finalized at location A. [employer]
[2022-11-14 15:20] VITALS: BP 125/74; PULSE 73; RESP 16; TEMP 36.4; O2SAT 100
[2022-11-14 16:32] LABS: Influenza A QL RT-PCR Negative (Negative); Influenza B QL RT-PCR Negative (Negative); RSV RNA, RT-PCR Negative (Negative); SARS-CoV-2 RNA PCR Negative
[2022-11-14 17:01] VITALS: O2SAT 98
--- NOTE | 2022-11-14 17:27 | ED.GENADULT ---
HPI - General Adult General Chief complaint: Upper Respiratory Infection Stated complaint: Sinus infection since September, hx of asthma Time Seen by Provider: 11/14/22 16:37 History of Present Illness HPI narrative: This is a 22-year-old female presents with chief complaint of viral URI symptoms. She does state that she was treated a couple of weeks ago for bacterial sinus infection with amoxicillin. Took her whole course of this, with minimal relief of symptoms. She reports cough ongoing since onset back in late September. She also notes some sore throat and a tender next to her throat. Reports sinus pressure. Also notes occasional urinary frequency. Denies hematuria or dysuria. Denies fevers, chills, abdominal pain, nausea vomiting, chest pain, shortness of breath. Related Data Home Medications Medication Instructions Recorded Confirmed One-A-Day -1 1 tab-cap PO DAILY 08/23/21 02/03/22 sertraline 50 mg tablet 50 mg PO DAILY 01/11/22 01/11/22 albuterol sulfate 90 mcg/actuation 1 puff inhalation DAILY PRN asthma 02/03/22 02/03/22 aerosol inhaler Allergies Allergy/AdvReac Type Severity Reaction Status Date / Time Latex, Natural Rubber Allergy Rash Verified 11/14/22 17:02 diphenhydramine AdvReac Anxiety Verified 11/14/22 17:02 [From Clemencia] Review of Systems Review of Systems: CONSTITUTIONAL: Denies fever, chills, or sweats. EYES: Denies visual changes, redness, or discharge. ENT: Endorses postnasal drip and sore throat. denies rhinorrhea or otalgia. CARDIOVASCULAR: Denies chest pain, palpitations, or edema. RESPIRATORY: Endorses cough with sputum production. Denies dyspnea. GASTROINTESTINAL: Denies abdominal pain, nausea, vomiting, or diarrhea. GENITOURINARY: Endorses frequency. Denies dysuria or hematuria. SKIN: Denies rash or itching. MUSCULOSKELETAL: Denies back pain, joint pain, or myalgia. NEUROLOGIC: Denies headache, numbness, dizziness, or weakness. PSYCHIATRIC: Denies anxiety or depression. [facility] Past Medical History Medical History (Updated 11/14/22 @ 17:29 by Jet English PA-C) Anxiety and depression Asthma Eczema Fibromyalgia Migraines Obese Surgical History Surgical History Hx of tympanostomy tubes Family History Family History Mother Chronic obstructive pulmonary disease Asthma Lupus Pacemaker Depression Multiple sclerosis A-fib Father Diabetes mellitus Kidney failure Anxiety Gout Sibling Asthma Sibling Asperger's disorder Autism Asthma Social History Social History Smoking status: Never smoker Alcohol intake: never Substance use: never Living arrangements: with family Occupation/Education: student Gender identity (if verbalized by the patient): Female Spiritual care concerns: No Exam Narrative: GENERAL: Well-appearing, well-nourished, and in no acute distress. HEAD: Normocephalic, atraumatic. EYES: PERRLA and EOMI. ENT: Nares clear, no rhinorrhea or epistaxis. Mucous membranes moist. Posterior oropharynx erythema. Tonsillar erythema and mild swelling bilaterally. No purulent lesions or membranous lesions are noted. Mild frontal sinus tenderness NECK: Supple. No masses. Somewhat tender bilateral anterior cervical lymph nodes. CHEST: No respiratory distress. Clear to auscultation. No wheezes rales or rhonchi HEART: Regular rate and rhythm. No murmur heard. Normal peripheral pulses. ABDOMEN: Soft, nontender, nondistended, normal active bowel sounds. EXTREMITIES: Normal range of motion. No edema. SKIN: Warm, dry, no rash. NEURO: Alert and oriented x3. No focal deficits. PSYCH: Normal mood and affect. Course Vital Signs Vital signs: Vital Signs Temperature 97.6 F 11/14/22 15:20 Pulse Rate 73 11/14/22 15:20 Respiratory Rate 16
[2022-11-14 17:53] LABS: Appearance Urine Clear (Clear); Bilirubin Urine Negative (Negative); Blood Urine Trace-intact (Negative); Color Urine Yellow (Yellow); Glucose Urine UA Negative (Negative); Ketones Urine Negative (Negative); Leukocyte Esterase Ur 1+ LEU/UL (Negative); Nitrate Urine Negative (Negative); Protein Urine Negative (Negative); Specific Grav Ur 1.015 (1.001-1.035); Urobilinogen Urine 0.2 mg/dL (<2.0)
[2022-11-14 17:59] LABS: Bacteria Urine Trace /hpf; Mucus Urine Rare /lpf; Squamous Epithelial Cell Urine Moderate /hpf (Few)
[2022-11-14 18:00] LABS: Add Urine Microscopic? YES
== END 2022-11-14 18:30 | disposition home or self-care (01) ==
PROVIDERS: Emergency Medicine; Emergency Provider Physician Assistant; PCP Nurse Practitioner Family
DX: J32.9 Chronic sinusitis, unspecified (principal); Z20.822 Contact with and (suspected) exposure to COVID-19; F41.9 Anxiety disorder, unspecified; F32.A Depression, unspecified; M79.7 Fibromyalgia; E66.9 Obesity, unspecified
CPT/HCPCS: 71045; 81001; 81025; 87637; 99283

== ENCOUNTER 2022-12-21 11:08 | Outpatient (CLI) | payer OTHER, SELFPAY ==
--- NOTE | ~2022-12-21 | XR_ITS ---
XR lumbar spine 2-3V DATE: 12/21/2022 11:29 INDICATION: Bilateral low back pain TECHNIQUE: AP, lateral, coned lateral lumbosacral views COMPARISON: None FINDINGS: Normal alignment of the lumbar spine. No fracture or bone destruction or spondylolisthesis. Included lower thoracic and lumbar pedicles are intact. Lumbar and lumbosacral interspaces are prese rved. The sacroiliac joints appear normal. IMPRESSION: Negative Reviewed, dictated and finalized at location B. IMPRESSION: Negative
== END 2022-12-21 11:09 | disposition home or self-care (01) ==
PROVIDERS: PCP Nurse Practitioner Family; Visit Provider Nurse Practitioner Family
DX: M54.50 Low back pain, unspecified (principal)
CPT/HCPCS: 72100

== ENCOUNTER 2023-02-04 17:57 | Emergency (ER) | payer OTHER, SELFPAY ==
--- NOTE | 2023-02-04 18:07 | ED.URI ---
HPI - URI/Sore Throat General Chief Complaint: Upper Respiratory Infection Stated Complaint: sorethroat,congestion Time Seen by Provider: 02/04/23 18:07 Source: patient Mode of arrival: ambulatory Limitations: no limitations History of Present Illness HPI Narrative: Patient is a 22-year-old female who presents with sore throat and hoarse voice since Monday. Patient states sore throat started evening. Denies any congestion, ear pain, cough, fever, chills, nausea, vomiting, diarrhea. Has taken Tylenol and ibuprofen for pain with mild relief. Patient reports pains primarily on left side of throat. Does states she has seasonal allergies but does not take daily allergy medicine. Related Data Home Medications Medication Instructions Recorded Confirmed drospirenone (contraceptive) 4 mg 1 tablet PO DAILY 02/04/23 02/04/23 (28) tablet (Slynd) duloxetine 20 mg capsule,delayed 20 mg PO DAILY 02/04/23 02/04/23 release Allergies Allergy/AdvReac Type Severity Reaction Status Date / Time Latex, Natural Rubber Allergy Rash Verified 02/04/23 18:10 diphenhydramine AdvReac Anxiety Verified 02/04/23 18:10 [From Benadryl] Review of Systems Review of Systems: All systems reviewed & are unremarkable except as noted in HPI and below Constitutional: Constitutional: Denies body ache(s), Denies chills, Denies fatigue, Denies fever(s), Denies headache(s), Denies malaise and Denies weakness Eyes: Eyes: Denies blurry vision, Denies itchy eyes and Denies loss of vision ENT: Denies otalgia, Denies headache(s), Denies nasal congestion, Denies sinus pain and Reports sore throat Cardiovascular: Cardiovascular: Denies chest pain, Denies irregular heart rhythm and Denies dyspnea Respiratory: Respiratory: Denies cough and Denies dyspnea Gastrointestinal: Gastrointestinal: Denies abdominal pain, Denies diarrhea, Denies nausea and Denies vomiting Musculoskeletal: Musculoskeletal: Denies back pain, Denies myalgias and Denies arthralgias Integumentary/Breasts: Skin/Breast: Denies pruritus and Denies rash Neurologic: Denies headache(s), Denies loss of vision and Denies weakness Psychiatric: Psychiatric: Reports no additional psychiatric complaints Endocrine: Endocrine: Denies fatigue Allergic/Immunologic: Allergic/Immunologic: Denies itchy eyes PMFSH Past Medical History Medical History (Updated 02/04/23 @ 18:28 by Amanda Subramanian APRN) Anxiety and depression Asthma Eczema Fibromyalgia Migraines Obese Surgical History Surgical History Hx of tympanostomy tubes Family History Family History Mother Chronic obstructive pulmonary disease Asthma Lupus Pacemaker Depression Multiple sclerosis A-fib Father Diabetes mellitus Kidney failure Anxiety Gout Sibling Asthma Sibling Asperger's disorder Autism Asthma Social History Social History Smoking status: Never smoker Alcohol intake: never Substance use: never Living arrangements: with family Occupation/Education: student Gender identity (if verbalized by the patient): Female Spiritual care concerns: No Comments At time of signature, agree with nursing past medical, surgical, social and family history. There is no relevant family history pertinent to the presenting complaint. Exam Const: General: cooperative, healthy appearing, comfortable, no acute distress and well nourished Nutritional Appearance: well nourished Orientation/consciousness: patient oriented x3 Limitations: no limitations HENMT: Head: normal to inspection, normocephalic and atraumatic Ears: hearing grossly normal bilaterally, external ears normal, TM's normal bilaterally, EAC's normal and no periauricular adenopathy Face/Nose/Sinus: Normal external nose present, Normal nasal
[2023-02-04 18:08] VITALS: BP 123/74; PULSE 71; RESP 18; TEMP 36.9; O2SAT 100
== END 2023-02-04 18:31 | disposition home or self-care (01) ==
PROVIDERS: Emergency Provider Nurse Practitioner Family; PCP Nurse Practitioner Family
DX: J03.90 Acute tonsillitis, unspecified (principal); J45.909 Unspecified asthma, uncomplicated; M79.7 Fibromyalgia; E66.9 Obesity, unspecified; Z68.33 Body mass index [BMI] 33.0-33.9, adult
CPT/HCPCS: 87081; 87880; 99213; G0463

== ENCOUNTER 2023-08-21 12:30 | Emergency (ER) | payer OTHER, SELFPAY ==
--- NOTE | ~2023-08-21 | US_ITS ---
EXAMINATION: US transvaginal DATE: 08/21/2023 20:28 INDICATION: Vaginal bleeding and concern for recent miscarriage TECHNIQUE: Multiple transabdominal and endovaginal sonographic images of the pelvis were obtained. COMPARISON: None. FINDINGS: The anteverted uterus measures 7.5 x 3.7 x 4.2 cm. The endometrial complex measures 5 mm in thicknes s. No gestational sac identified within the uterus. There is a small amount of anechoic fluid in the lower aspect of the endocervical canal which abuts an 8 x 4 mm anechoic structure within the endocerv ical canal which appears to contain a 2.5 mm echogenic structure which could represent a pole w ithin gestational sac suspicious for an in progress. The right ovary measures 6.2 x 5.1 x 5. 7 cm. There is a 5.9 x 4.6 x 5.3 cm complex likely hemorrhagic cyst in the right ovary with typical r eticulated pattern of multiple thin internal septations and without internal vascular flow on color D oppler. Normal vascular flow with arterial waveforms is seen peripherally in the right ovary peripher al to the cyst. The left ovary measures 2.9 x 2.0 x 1.5 cm. Normal vascular flow is also identified i n the left ovary on color Doppler. There is a small amount of free fluid in the pelvis. IMPRESSION: 1. No evident intrauterine gestational sac. There is however an 8 x 4 mm cystic structure within the endocervical canal suspicious for a gestational sac and spontaneous in progress. Correlate w ith serial beta-hCG levels. 2. 5.9 cm likely hemorrhagic cyst at the right ovary. Consider follow-up ultrasound in 6-12 weeks to document resolution. Reviewed, dictated and finalized at location A. STORAGE CLERK IMPRESSION: 1. No evident intrauterine gestational sac. There is however an 8 x 4 mm cystic structure within the endocervical canal suspicious for a gestational sac and s pontaneous in progress. Correlate with serial beta-hCG levels. 2. 5.9 cm likely hemorrhagic cyst at the right ovary. Consider follow-up ultras ound in 6-12 weeks to document resolution.
[2023-08-21 12:35] VITALS: BP 110/63; PULSE 89; RESP 18; TEMP 36.3; O2SAT 100
[2023-08-21 12:47] LABS: Basophils Absolute Auto 0.1 K/mm3 (0.0-0.1); Basophils Percent Auto 0.7 % (0.2-1.2); Eosinophils Absolute Auto 0.4 K/mm3 (0-0.3); Eosinophils Percent Auto 5.3 % (0-4.4); Hematocrit 41.1 % (37.0-47.0); Hemoglobin 13.7 g/dL (12.0-15.0); Immature Granulocyte Absolute 0.02 K/mm3 (0.00-0.031); Immature Granulocyte Percent A 0.3 % (0-0.5); Lymphocytes Absolute Auto 2.15 K/mm3 (0.9-3.2); Lymphocytes Percent Auto 31.5 % (18.3-44.2); Mean Corpuscular HGB Conc 33.3 g/dl (32-36); Mean Corpuscular Volume 86.9 fl (80-100); Mean Platelet Volume 10.1 fl (7.4-10.4); Monocytes Absolute Auto 0.6 K/mm3 (0.1-0.6); Monocytes Percent Auto 8.2 % (2.6-8.5); Neutrophils Absolute Auto 3.7 K/mm3 (1.3-6.7); Platelet Count Result 254 k/mm3 (150-375); Red Blood Count 4.73 M/mm3 (4.2-5.4); Red Cell Distribution Width 13.2 % (11.5-14.5); White Blood Count 6.8 K/mm3 (4.5-10.0)
[2023-08-21 13:21] LABS: Beta HCG Quantitative < 2.39 mIU/ML
[2023-08-21 16:18] VITALS: BP 117/89; PULSE 92; RESP 18; O2SAT 98
--- NOTE | 2023-08-21 16:21 | ED.FEMALEGU ---
HPI - Female Genitourinary General Chief complaint: Vaginal Bleeding Stated complaint: preg, vag cramping/bleeding Time Seen by Provider: 08/21/23 16:18 History of Present Illness HPI Narrative: Patient is a with last menstrual period 07/12, here with abdominal pain and vaginal bleeding. She states that she is on oral control that causes her to have some irregular periods. Because she had not gotten her menstrual cycle yet this month she did take a test last night which was a digital test and noted that she was positive. She took a test about a week ago and that was negative. She states that this morning she started having some vaginal spotting which seemed to be similar to a normal beginning of her period. She notes some associated pelvic cramping. No passage of clots or tissue. No urinary symptoms, no vaginal discharge, 1 sexual partner, in a monogamous relationship with no concerns of STI. Related Data Home Medications Medication Instructions Recorded Confirmed drospirenone (contraceptive) 4 mg 1 tablet PO DAILY 02/04/23 02/04/23 (28) tablet (Slynd) duloxetine 20 mg capsule,delayed 20 mg PO DAILY 02/04/23 02/04/23 release Allergies Allergy/AdvReac Type Severity Reaction Status Date / Time Latex, Natural Rubber Allergy Rash Verified 08/21/23 16:18 diphenhydramine AdvReac Anxiety Verified 08/21/23 16:18 [From Benadryl] Review of Systems Review of Systems: All systems reviewed & are unremarkable except as noted in HPI and below PMFSH Past Medical History Medical History (Updated 08/21/23 @ 21:13 by Davida Navarro MD) Anxiety and depression Asthma Eczema Fibromyalgia Migraines Obese Surgical History Surgical History Hx of tympanostomy tubes Family History Family History Mother Chronic obstructive pulmonary disease Asthma Lupus Pacemaker Depression Multiple sclerosis A-fib Father Diabetes mellitus Kidney failure Anxiety Gout Sibling Asthma Sibling Asperger's disorder Autism Asthma Social History Social History Smoking status: Never smoker Alcohol intake: never Substance use: never Living arrangements: with family Occupation/Education: student Gender identity (if verbalized by the patient): Female Spiritual care concerns: No Exam Narrative: GENERAL: Well-appearing, well-nourished, and in no acute distress. HEAD: Normocephalic, atraumatic. EYES: PERRLA and EOMI. ENT: Nares clear. Mucous membranes moist. NECK: Supple. CHEST: Clear to auscultation. No respiratory distress. HEART: Regular rate and rhythm. Normal peripheral pulses. ABDOMEN: Soft, mild suprapubic tenderness, nondistended. EXTREMITIES: Normal range of motion. No edema. SKIN: Warm, dry, no rash. NEURO: No focal deficits. Alert and oriented x3. PSYCH: Normal mood and affect. Course Course Emergency Course: Chart review performed. Patient here for vaginal bleeding. She reportedly had positive home test. Urine test here is negative. Triage workup reviewed. CBC within normal limits, bHCG <2.39. Blood type A positive. Patient seen evaluated, nontoxic appearing. She does have a suprapubic tenderness. Given vaginal bleeding, pelvic pain and possible recent miscarriage will do transvaginal ultrasound to evaluate for possible retained products of conception. Will additionally do UA. Anticipate likely discharge with OBGYN follow-up. Patient requesting to be discharged prior to performance of ultrasound. Risks and benefits discussed. She would prefer to leave against medical advice to contact her OBGYN tomorrow morning. Patient changed her mind, she would now like to stay for ultrasound. Reordered. Ultrasound shows no evidence of intrauterine gestational sac, 8 x 4
[2023-08-21 17:35] VITALS: BP 101/88; PULSE 80; RESP 15; O2SAT 100
[2023-08-21 17:46] LABS: Appearance Urine Clear (Clear); Bacteria Urine Rare /hpf; Bilirubin Urine Negative (Negative); Blood Urine 2+ (Negative); Color Urine Yellow (Yellow); Glucose Urine UA Negative (Negative); Ketones Urine Negative (Negative); Leukocyte Esterase Ur Negative LEU/UL (Negative); Nitrate Urine Negative (Negative); Non Pathogenic Casts 0-2; Protein Urine Negative (Negative); Specific Grav Ur 1.018 (1.001-1.035); Squamous Epithelial Cell Urine Occasional /hpf (Few); Urobilinogen Urine 0.2 mg/dL (<2.0); WBC Urine 0-5 /hpf
[2023-08-21 17:47] LABS: Add Urine Microscopic? YES
[2023-08-21 18:25] VITALS: BP 113/72; PULSE 86; RESP 17; O2SAT 100
[2023-08-21 18:43] VITALS: BP 106/76; PULSE 88; RESP 17; O2SAT 98
--- NOTE | 2023-08-21 19:16 | PC.NURSE ---
Assumed care of pt from LAYNE Wadsworth at this time. Pt awaiting US. Pt resting in bed w call light within reach and visitor at bedside.
[2023-08-21 21:57] VITALS: BP 110/77; PULSE 85; RESP 16; O2SAT 100
== END 2023-08-21 21:58 | disposition home or self-care (01) ==
PROVIDERS: Emergency Medicine; Emergency Provider Student in an Organized Health Care Education/Training Program; PCP Nurse Practitioner Family
DX: O03.9 Complete or unspecified spontaneous abortion without complication (principal); J45.909 Unspecified asthma, uncomplicated; M79.7 Fibromyalgia
CPT/HCPCS: 36415; 76830; 81001; 81025; 84702; 85025; 85461; 86850; 86900; 86901; 99284

== ENCOUNTER 2023-09-01 02:39 | Day surgery (SDC) | payer OTHER, SELFPAY ==
--- NOTE | 2023-08-30 13:52 | PC.NURSE ---
Report to the Outpatient Waiting Room, entrance under the green pavilion located off [facility], at time 0700 on date 09/01/23. Planned Procedure Time: 0900. Time changes happen often and if your time is changed the preop area will call you the afternoon before. - You and your visitor will be asked to self-screen and do not enter if you have any COVID symptoms. - A mask is optional within the hospital at this time. Patients may have clear liquids (water, carbonated beverages, clear teas, apple juice) until 3 hours prior to surgery with a maximum of 20 ounces. 0600 - No food from midnight until time of surgery - Infants may have breast milk until 4 hours before surgery, formula 6 hours prior to surgery. - Children will be allowed to drink immediately following surgery. If applicable, please bring a bottle or sippy cup to assist with drinking. Juice, water, soda, and popsicles are readily available. For infants on formula, please bring formula the day of surgery. Pacifiers are allowed. Take the following medications with a SIP of water the morning of surgery: cymbalta, control DO NOT STOP ANY OF YOUR OTHER PRESCRIPTION MEDICATIONS PRIOR TO SURGERY ?EXCEPT THE FOLLOWING Medications to discontinue per physician none Date to take last dose Please no make-up, nail tajik, hairspray, perfume, deodorant, or body powder the day of surgery. No jewelry (including any body piercings) or valuables the day of surgery, leave them at home. Please take a shower or bath the night before, or the morning of, surgery with an antibacterial soap. Wear comfortable, loose fitting clothing. Children are encouraged to wear pajamas. - Jewelry must be removed prior to entering the operating room. Rings and piercings that are not removed may be cut off. - The hospital will not accept responsibility for valuables. - Please leave all valuables, including medications, at home the day of surgery. If you are going home after surgery, a licensed interstate bus driver must drive you home. - NO public transportation without another adult if you receive anesthesia. - We recommend that an adult stay with you for 24 hours following discharge. - We also recommend that you do not drive, make important decision, drink alcoholic beverages, or take any drugs that were not prescribed by your health care provider for at least 24 hours after your discharge time. For Pediatric surgeries, we recommend two adults accompany the child home. Follow any additional instructions given to you from your surgeon. If you or anyone in your household have experienced Covid symptoms in the past week, please notify your surgeon or the nurse liaison at the phone number below for possible testing. Telephone instructions given to Patient- Erendira Herrera and asked if any additional questions and then verbalized understanding. Patient advised to call surgeon office or pre surgery nurse liaison [phone] if any additional questions.
[2023-08-30 13:57] VITALS: BMI 34.6
[2023-09-01] VITALS (9 sets, daily range): BP systolic 100–115; BP diastolic 54–79; PULSE 71–98; RESP 12–17; TEMP 36.2–36.7; O2SAT 92–100
[2023-09-01] MEDS: ACETAMINOPHEN 500 MG TABLET 1000 MG PO (07:36)
[2023-09-01] MEDS: LACTATED RINGERS 1,000 ML 30 ML IV CONT ×3 (07:57→12:15)
--- NOTE | 2023-09-01 07:59 | WPDANESEPPF ---
Anes - Initial Pre Proc Eval Procedure: Operation Date: 09/01/23 09:00 Proposed Procedures p Laparoscopic Right Ovarian Cystectomy, Hysteroscopy with Dilation and Curettage - Davey Lakhani MD Date/Time: 09/01/23 07:59 Surgeon: Davey Lakhani MD Pre Op Diagnosis: Hemorrhagic Cyst Ovary (Right) & Lesion of Cervix Patient Data Age: 23 Gender: F Height: 1.6 m Weight: 88.6 kg Allergies Allergy/AdvReac Type Severity Reaction Status Date / Time Latex, Natural Rubber Allergy Rash Verified 08/30/23 13:42 diphenhydramine AdvReac Anxiety Verified 08/30/23 13:42 [From Benadryl] Home Medications Medication Instructions Recorded Confirmed Type drospirenone (contraceptive) 4 mg 1 tablet PO DAILY 02/04/23 08/30/23 History (28) tablet (Slynd) duloxetine 20 mg capsule,delayed 20 mg PO DAILY 02/04/23 08/30/23 History release (Cymbalta) Patient hx anesthesia problems: none Family hx anesthesia problems: none Results Review: All pre-operative results and documents have been reviewed as part of the pre-operative evaluation. [facility] Past Medical History Medical History Anxiety and depression Asthma Eczema Fibromyalgia Migraines Obese Surgical History Surgical History Hx of tympanostomy tubes Family History Family History Mother Chronic obstructive pulmonary disease Asthma Lupus Pacemaker Depression Multiple sclerosis A-fib Father Diabetes mellitus Kidney failure Anxiety Gout Sibling Asthma Sibling Asperger's disorder Autism Asthma Social History Social History Smoking status: Never smoker Alcohol intake: never Substance use: never Living arrangements: with family Occupation/Education: student Gender identity (if verbalized by the patient): Female Spiritual care concerns: No Anes - Eval Final PreProcedure Day of Procedure 09/01/23 07:59 Patient weight: obese Heart: regular rate and rhythm Lungs: clear to auscultation Airway: Mallampati scale class II Neurological: alert and oriented Last oral intake: >/= 8 hours ASA classification: II Emergent: no Anesthetic plan: proceed Anesthesia type and monitoring: general ETT and standard monitoring Results Review: All pre-operative results and documents have been reviewed as part of the pre-operative evaluation. Informed Consent: The patient's anesthetic plan and its attendant risks and benefits were discussed with the patient/family/POA. Questions were solicited and answers provided to the satisfaction of the patient/family/POA.
[2023-09-01] MEDS: KETOROLAC 15 MG/ML VIAL (*BKC) IV PUSH (09:20)
[2023-09-01] MEDS: fentaNYL CITRATE INJ (*CRX) 100 MCG/2 ML VIAL 25 MCG IV PUSH ×2 (11:16→11:29)
--- NOTE | 2023-09-01 11:18 | W.PM.PROC2 ---
Procedure Note - Detailed Date of Procedure 09/01/23 Pre-op Diagnosis Hemorrhagic Cyst Ovary (Right) & Lesion of Cervix Post-op Diagnosis Same Procedure Performed Laparoscopic right ovarian cystectomy and hysteroscopy D&C Surgeon Davey Lakhani MD Anesthesia General Indications Pelvic pain Findings cystic tissue and redundancy within the intracervical canal. , 3-4 cm right ovarian cyst. Description of Procedure laparoscopic right ovarian cystectomy:The patient was taken to the operating room. She was prepped and draped in the dorsal lithotomy position after induction general anesthesia. A 5 mm incision was made with a scalpel on the abdominal skin in the left upper quadrant of the abdomen. A 5 mm trocar was inserted into the intra-abdominal cavity under direct visualization the scope. In the same fashion a 5 mm left lower quadrant trocar was inserted and a 5 mm infraumbilical trocar was inserted. Right ovarian cystectomy was performed. This done with LigaSure cautery, monopolar cautery, blunt dissection. Surgicel was placed on the cut surface after it was cauterized. The pelvis was irrigated. The pneumoperitoneum was reduced. The trocars were removed. Skin was closed with subcuticular 4 micro. The patient's incisions were covered with Dermabond. Hysteroscopy D&C: A speculum was placed in the vagina.? The cervix was grasped with a tenaculum.? The cervix was dilated about 1 cm.? The hysteroscope was inserted.? ? The intrauterine cavity and endocervix were evaluated.? Hysteroscope was withdrawn. endocervix was firmly curetted with medium-sized curette after dilating it.? A medium-size curette was used to curettage all the surfaces were within the endometrial cavity. the sample was collected on Telfa and sent to pathology.? The hysteroscope was reinserted and the above findings were noted.? Patient tolerated the procedure well.? The speculum and tenaculum were removed.? She was taken recovery room in stable condition.? Sponge lap and needle counts were correct x2.? Estimated Blood Loss Estimated Blood Loss: Pathology Yes Complications No immediate complications Condition Stable Disposition Same day
[2023-09-01] MEDS: ONDANSETRON INJ 4 MG/2 ML VIAL IV PUSH (11:25)
[2023-09-01] MEDS: SCOPOLAMINE 1.5 MG PATCH TRANSDERM (12:15)
[2023-09-01] MEDS: oxyCODONE HCL (*CRX) 5 MG TAB IR PO (12:15)
--- NOTE | 2023-09-26 10:19 | WPDHPUPDATE1 ---
History and Physical Update Update Date/Time: 09/26/23 10:19 patient understands the risks, benefits, and alternatives. She is completed the informed consent process is ready to proceed. Actual date of service was 09/01/2023 History and Physical has been reviewed, including an updated exam of the patient. There are NO changes in the patient's condition. Risks, benefits, and alternatives have been discussed and questions answered. Patient agrees to proceed with procedure.
== END 2023-09-01 12:49 | disposition home or self-care (01) ==
PROVIDERS: PCP Nurse Practitioner Family; Visit Provider Obstetrics & Gynecology
PROC: 0UDB8ZZ Extraction of Endometrium, Via Natural or Artificial Opening Endoscopic (ICD-10-PCS; CPT 58558; principal; 2023-09-01 09:00)
DX: N83.201 Unspecified ovarian cyst, right side (principal); F41.8 Other specified anxiety disorders; E66.9 Obesity, unspecified; Z68.32 Body mass index [BMI] 32.0-32.9, adult
CPT/HCPCS: 58662; 58558; 88305; A9270; J1100; J1885; J2250; J2405; J2704; J3010; J7030; J7120

== ENCOUNTER 2023-09-20 18:38 | Emergency (ER) | payer OTHER, SELFPAY ==
--- NOTE | ~2023-09-20 | XR_ITS ---
EXAM: XR hip LT 2V w AP pelvis, XR femur LT min 2V DATE: 09/20/2023 21:22 HISTORY: fall DOWN 15 STAIRS TONIGHT, LATERAL LEG PAIN . COMPARISON: None available. FINDINGS: Normal mineralization. No fracture or dislocation. No lytic or blastic lesion. Joint space s are maintained. No erosion or periosteal change. Soft tissues within normal limits. IMPRESSION: No acute osseous finding in the pelvis, left hip, or left femur. Reviewed, dictated and finalized at location K. MOTIVE SALESPERSON IMPRESSION: No acute osseous finding in the pelvis, left hip, or left femur.
--- NOTE | ~2023-09-20 | CT_ITS ---
EXAMINATION: CT abdomen pelvis w con DATE: 09/20/2023 21:29 INDICATION: fall TECHNIQUE: Computed tomography (CT) of the abdomen and pelvis was performed with 100 mL Omnipaque-350 intravenous contrast. Automated exposure control and iterative reconstruction technique were employe d. The dose-length product was 745.02 mGy-cm. COMPARISON: None. FINDINGS: Lower thorax: Minimal dependent atelectasis. Liver: Normal. Biliary/Gallbladder: Gallbladder is normal. No bile duct dilation. Pancreas: No mass or duct dilation. Spleen: Normal. Adrenals:No mass. Kidneys: No suspicious mass, obstructing stone, or hydronephrosis. GI tract: No small or large bowel dilation. Normal appendix. Mesentery/Peritoneum: No ascites, mass, or free air. Prominent mesenteric lymph nodes, not pathologic by size criteria. Retroperitoneum: No mass. Pelvis: Pelvic organs are within normal limits. 3.1 cm simple left ovarian cyst which requires no add itional evaluation at this time. Soft Tissues: Soft tissues and body wall unremarkable. Bones: No acute osseous finding. IMPRESSION: No acute abdominopelvic process detected. Reviewed, dictated and finalized at location K. ING HOUSE LABORER
[2023-09-20 18:46] VITALS: BP 136/82; PULSE 112; RESP 20; TEMP 36.5; O2SAT 100
--- NOTE | 2023-09-20 20:20 | ED.FALL ---
HPI - Fall General Chief Complaint: Fall Stated Complaint: fall down stairs Time Seen by Provider: 09/20/23 20:20 History of Present Illness HPI Narrative: Patient is a 23 year old female with no PMH here after a fall down stairs. Patient notes that she was carrying her daughter on a flight of outside stairs which were wet and covered with landrum when she slipped and fell down onto her left side. She believes she fell down an entire flight of stairs from the second floor. She denies head injury, denies LOC. She denies any chest pain. Currently complaining of pain over her left side of her abdomen and her left hip. She has ambulated since the injury with pain. No medications taken prior to arrival. No blood thinner use. Related Data Home Medications Medication Instructions Recorded Confirmed drospirenone (contraceptive) 4 mg 1 tablet PO DAILY 02/04/23 08/30/23 (28) tablet (Slynd) duloxetine 20 mg capsule,delayed 20 mg PO DAILY 02/04/23 08/30/23 release (Cymbalta) Allergies Allergy/AdvReac Type Severity Reaction Status Date / Time Latex, Natural Rubber Allergy Rash Verified 09/20/23 19:35 diphenhydramine AdvReac Anxiety Verified 09/20/23 19:35 [From Benadryl] Review of Systems Review of Systems: All systems reviewed & are unremarkable except as noted in HPI and below PMFSH Past Medical History Medical History Anxiety and depression Asthma Eczema Fibromyalgia Migraines Obese Surgical History Surgical History Hx of tympanostomy tubes Family History Family History Mother Chronic obstructive pulmonary disease Asthma Lupus Pacemaker Depression Multiple sclerosis A-fib Father Diabetes mellitus Kidney failure Anxiety Gout Sibling Asthma Sibling Asperger's disorder Autism Asthma Social History Social History Smoking status: Never smoker Alcohol intake: never Substance use: never Living arrangements: with family Occupation/Education: student Gender identity (if verbalized by the patient): Female Spiritual care concerns: No Exam Narrative: GENERAL: Well-appearing, well-nourished, and in no acute distress. HEAD: Normocephalic, atraumatic. EYES: PERRLA and EOMI. ENT: Nares clear. Mucous membranes moist. NECK: Supple. CHEST: Clear to auscultation. No respiratory distress. HEART: Regular rate and rhythm. Normal peripheral pulses. ABDOMEN: Soft, nontender, nondistended. EXTREMITIES: Normal range of motion. Tenderness over the left lateral hip and femur with normal ROM. Normal PMS distal to injury. Right hip non tender, right lower extremity atraumatic. Bilateral upper extremities atraumatic. SKIN: Warm, dry, no rash. NEURO: No focal deficits. Alert and oriented x3. PSYCH: Normal mood and affect. Course Course Emergency Course: Chart review performed. Patient here after a fall. Triage vitals show tachycardia, otherwise within normal limits. Patient seen and evaluated, tenderness seems to be above and on her hip on the left side with some bilateral lower back tenderness, no midline tenderness. Will do Hip and femur xr along with ct abdomen pelvis. Basic lab work ordered in context of trauma. Lab work reviewed, grossly normal. negative. CTs and xrays negative. The results of pertinent diagnostic studies and exam findings were discussed. The patient?s provisional diagnosis and plan of care were discussed with the patient and present family. The patient and/or present family expressed understanding of the diagnosis and plan. The nurse was instructed to provide written instructions and appropriate follow-up information. The patient understands their need and responsibility to obtain additional follow-up as instructed. The risks of medica
[2023-09-20 20:39] LABS: Basophils Absolute Auto 0.1 K/mm3 (0.0-0.1); Basophils Percent Auto 0.6 % (0.2-1.2); Eosinophils Absolute Auto 0.6 K/mm3 (0-0.3); Eosinophils Percent Auto 6.4 % (0-4.4); Immature Granulocyte Absolute 0.03 K/mm3 (0.00-0.031); Immature Granulocyte Percent A 0.3 % (0-0.5); Lymphocytes Absolute Auto 3.51 K/mm3 (0.9-3.2); Lymphocytes Percent Auto 34.9 % (18.3-44.2); Mean Corpuscular HGB Conc 33.3 g/dl (32-36); Mean Corpuscular Hemoglobin 29.2 pg (26-34); Mean Corpuscular Volume 87.5 fl (80-100); Mean Platelet Volume 10.1 fl (7.4-10.4); Monocytes Absolute Auto 0.7 K/mm3 (0.1-0.6); Monocytes Percent Auto 6.6 % (2.6-8.5); Neutrophils Absolute Auto 5.2 K/mm3 (1.3-6.7); Neutrophils Percent Auto 51.2 % (45.5-73.1); Platelet Count Result 354 k/mm3 (150-375); White Blood Count 10.1 K/mm3 (4.5-10.0)
[2023-09-20 20:52] LABS: Lactic Acid Reflex 0.8 mmol/L (0.7-2.0)
[2023-09-20 20:56] LABS: Alanine Aminotransferase 18 U/L (6-35); Albumin Level 4.5 g/dL (3.5-5.1); Alkaline Phosphatase 67 U/L (38-126); Anion Gap 9 mmol/L (8-16); Aspartate Amino Transferase 35 U/L (14-36); Bilirubin,Total 0.4 mg/dL (0.2-1.3); Blood Urea Nitrogen 12 mg/dL (7-17); Calcium 9.3 mg/dL (8.4-10.2); Carbon Dioxide 27 mmol/L (22-30); Chloride 105 mmol/L (98-107); Estimated CRCL calculation 115 ml/min; Estimated Glomerular Filt Rate > 60; Glucose 96 mg/dL (65-110); Potassium 3.9 mmol/L (3.4-5.0); Sodium 141 mmol/L (137-145)
[2023-09-20 20:58] LABS: Creatine Kinase 40 U/L (30-135)
[2023-09-20] MEDS: KETOROLAC 15 MG/ML VIAL (*BKC) IV PUSH (22:21)
[2023-09-20] MEDS: ACETAMINOPHEN 325 MG TABLET 650 MG PO (22:21)
[2023-09-20 22:26] VITALS: BP 126/75; PULSE 94; RESP 17; O2SAT 100
== END 2023-09-20 22:27 | disposition home or self-care (01) ==
PROVIDERS: Emergency Provider Student in an Organized Health Care Education/Training Program; PCP Nurse Practitioner Family
DX: S70.02XA Contusion of left hip, initial encounter (principal); W10.8XXA Fall (on) (from) other stairs and steps, initial encounter
CPT/HCPCS: 36415; 73502; 73552; 74177; 80053; 81025; 82550; 83605; 85025; 96374; 99284; A9270; J1885; Q9967

== ENCOUNTER 2023-11-04 23:36 | Emergency (ER) | payer OTHER, SELFPAY ==
--- NOTE | ~2023-11-04 | XR_ITS ---
EXAMINATION: XR chest 1V portable DATE: 11/05/2023 03:18 INDICATION: Dyspnea. TECHNIQUE: A single frontal view of the chest was obtained. COMPARISON: Chest single view 11/14/2022, CT abdomen and pelvis 09/20/2023 FINDINGS: There is no pneumonia, pleural effusion, or pneumothorax. The heart size is normal. IMPRESSION: 1. No acute cardiopulmonary disease. Reviewed, dictated and finalized at location A. [facility]
[2023-11-04 23:36] VITALS: PULSE 88; O2SAT 100
[2023-11-04 23:55] VITALS: BP 146/106; PULSE 113; RESP 18; TEMP 36.7; O2SAT 99
[2023-11-05] VITALS (9 sets, daily range): BP systolic 115–121; BP diastolic 77–83; PULSE 78–97; RESP 17–31; O2SAT 100
[2023-11-05] MEDS: MAGNESIUM SULF 2 GM/WATER 50ML 2 GM/50 ML BAG IVPB (03:17)
[2023-11-05] MEDS: ALBUTEROL SULFATE NEB 2.5 MG/3 ML INH 5 MG INHALATION (03:19)
[2023-11-05] MEDS: IPRATROPIUM BR 0.02% INH SOLN 0.5 MG/2.5 ML VIAL INHALATION (03:19)
[2023-11-05 03:53] LABS: Influenza A QL RT-PCR Negative (Negative); Influenza B QL RT-PCR Negative (Negative); RSV RNA, RT-PCR Negative (Negative); SARS-CoV-2 RNA PCR Positive (Negative)
--- NOTE | 2023-11-05 04:03 | ED.GENADULT ---
HPI - General Adult General Chief complaint: Shortness of Breath/Dyspnea Stated complaint: asthma flare up, rescue Time Seen by Provider: 11/05/23 02:08 History of Present Illness HPI narrative: This is a 23-year-old female presenting with shortness of breath. Patient noticed that she developed cough and some chest tightness. She tried using inhaler but realized that was . She can hospital for further evaluation. She does have a sick child at home who was been exposed to COVID. No fever chills chest pain nausea vomiting or diarrhea Related Data Home Medications Medication Instructions Recorded Confirmed drospirenone (contraceptive) 4 mg 1 tablet PO DAILY 02/04/23 08/30/23 (28) tablet (Slynd) duloxetine 20 mg capsule,delayed 20 mg PO DAILY 02/04/23 08/30/23 release (Cymbalta) Allergies Allergy/AdvReac Type Severity Reaction Status Date / Time Latex, Natural Rubber Allergy Rash Verified 09/20/23 19:35 diphenhydramine AdvReac Anxiety Verified 09/20/23 19:35 [From Benadryl] [facility] Past Medical History Medical History Anxiety and depression Asthma Eczema Fibromyalgia Migraines Obese Surgical History Surgical History Hx of tympanostomy tubes Family History Family History Mother Chronic obstructive pulmonary disease Asthma Lupus Pacemaker Depression Multiple sclerosis A-fib Father Diabetes mellitus Kidney failure Anxiety Gout Sibling Asthma Sibling Asperger's disorder Autism Asthma Social History Social History Smoking status: Never smoker Alcohol intake: never Substance use: never Living arrangements: with family Occupation/Education: student Gender identity (if verbalized by the patient): Female Spiritual care concerns: No Exam Narrative: APPEARANCE: No apparent distress. Head: atraumatic. EYES: EOMI, NOSE: Atraumatic NECK: Trachea midline RESPIRATORY: No increased rate of breathing, clear to auscultation, frequent cough CARDIOVASCULAR: RRR, ABDOMINAL: Non-distended MUSCULOSKELETAl: No obvious deformities NEURO: Alert. Moving 4/4 extremities SKIN:: Warm, dry. Normal color PSYCHIATRIC: Normal affect Course Vital Signs Vital signs: Vital Signs Pulse Rate 88 11/04/23 23:36 Pulse Oximetry 100 11/04/23 23:36 Oxygen Delivery Room Air 11/04/23 23:36 Temperature 98.0 F 11/04/23 23:55 Pulse Rate 82 11/05/23 03:22 Respiratory Rate 20 11/05/23 03:22 Blood Pressure 117/77 11/05/23 01:00 Pulse Oximetry 100 11/05/23 01:00 Oxygen Delivery Room Air 11/05/23 01:00 Medical Decision Making MDM Narrative Medical decision making narrative: -Course: 23-year-old female presenting with cough shortness of breath. Given a breathing treatment with improvement. Found to be COVID positive. Vital signs stable/ well appearing. Discharged with return precautions. 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
== END 2023-11-05 04:30 | disposition home or self-care (01) ==
PROVIDERS: Emergency Provider Emergency Medicine; PCP Nurse Practitioner Family
DX: J45.909 Unspecified asthma, uncomplicated (principal); U07.1 COVID-19
CPT/HCPCS: 71045; 87637; 94640; 96365; 96372; 99284; J1100; J3475

== ENCOUNTER 2024-04-03 19:04 | Emergency (ER) | payer OTHER, SELFPAY ==
[2024-04-03 19:05] VITALS: BP 133/75; PULSE 77; RESP 16; TEMP 36.6; O2SAT 100
[2024-04-03 19:30] VITALS: BP 128/83; PULSE 103; RESP 14; TEMP 36.8; O2SAT 98
[2024-04-03] MEDS: SODIUM CHLORIDE 0.9% IV 1,000 ML 999 ML IV CONT (20:09)
[2024-04-03] MEDS: ONDANSETRON INJ 4 MG/2 ML VIAL IV PUSH (20:10)
[2024-04-03] MEDS: KETOROLAC 30 MG/ML VIAL (*BKC) IV PUSH (20:10)
--- NOTE | 2024-04-03 20:15 | ED.HA ---
HPI - Headache General Chief Complaint: Headache Stated Complaint: migraine x 7 days Time Seen by Provider: 04/03/24 19:18 History of Present Illness HPI Narrative: Patient is a 23-year-old female with history of migraines since she was in elementary school who presents ER with headache. Throbbing. Reports that it is associated with occasional colors in her vision which is normal. She has photophobia. No fevers or chills or sweats. No recent stressors. No improvement with Tylenol or ibuprofen. Denies trauma. Related Data Home Medications Medication Instructions Recorded Confirmed drospirenone (contraceptive) 4 mg 1 tablet PO DAILY 02/04/23 08/30/23 (28) tablet (Slynd) duloxetine 20 mg capsule,delayed 20 mg PO DAILY 02/04/23 08/30/23 release (Cymbalta) Allergies Allergy/AdvReac Type Severity Reaction Status Date / Time Latex, Natural Rubber Allergy Rash Verified 04/03/24 19:07 diphenhydramine AdvReac Anxiety Verified 04/03/24 19:07 [From Benadryl] Review of Systems Review of Systems: All systems reviewed & are unremarkable except as noted in HPI and below Constitutional: Constitutional: Reports no additional constitutional complaints Eyes: Eyes: Denies change in vision and Reports photophobia ENT: Reports system reviewed and no additional complaints, except as documented Musculoskeletal: Musculoskeletal: Reports no additional musculoskeletal complaints Neurologic: Reports headache(s), Denies focal weakness and Denies numbness PMFSH Past Medical History Medical History Anxiety and depression Asthma Eczema Fibromyalgia Migraines Obese Surgical History Surgical History Hx of tympanostomy tubes Family History Family History Mother Chronic obstructive pulmonary disease Asthma Lupus Pacemaker Depression Multiple sclerosis A-fib Father Diabetes mellitus Kidney failure Anxiety Gout Sibling Asthma Sibling Asperger's disorder Autism Asthma Social History Social History Smoking status: Never smoker Alcohol intake: never Substance use: never Living arrangements: with family Occupation/Education: student Gender identity (if verbalized by the patient): Female Spiritual care concerns: No Exam Narrative: GENERAL: Well-appearing, well-nourished, and in no acute distress. HEAD: Normocephalic, atraumatic. ENT: Mucous membranes moist. TMs normal bilaterally. CHEST: Clear to auscultation. No respiratory distress. HEART: Regular rate and rhythm. Normal peripheral pulses. EXTREMITIES: Normal range of motion. No edema. NEURO: Alert and oriented x3. PSYCH: Normal mood and affect. Course Course Emergency Course: Headache resolved with Toradol/Zofran/ IV fluid. Discharge home. Vital Signs Vital signs: Vital Signs Temperature 97.8 F 04/03/24 19:05 Pulse Rate 77 04/03/24 19:05 Respiratory Rate 16 04/03/24 19:05 Blood Pressure 133/75 04/03/24 19:05 Pulse Oximetry 100 04/03/24 19:05 Oxygen Delivery Room Air 04/03/24 19:05 Temperature 98.3 F 04/03/24 19:30 Pulse Rate 103 H 04/03/24 19:30 Respiratory Rate 14 04/03/24 19:30 Blood Pressure 128/83 04/03/24 19:30 Pulse Oximetry 98 04/03/24 19:30 Oxygen Delivery Room Air 04/03/24 19:30 Discharge Plan Discharge Clinical Impression: Headache Patient Disposition: Home, Self-Care Condition: Stable Instructions: General Headache (ED) Additional Instructions: return to the ER if you have fever over 100.4? F, you cannot keep down food water, he lose consciousness, or you have additional concerns. Prescriptions: No Action Slynd 4 mg (28) tablet 1 tablet PO DAILY duloxetine [Cymbalta] 20 mg capsule,delayed release(
[2024-04-03 21:39] VITALS: BP 130/88; PULSE 97; RESP 15; O2SAT 100
== END 2024-04-03 21:39 | disposition home or self-care (01) ==
PROVIDERS: Emergency Provider Emergency Medicine; PCP Internal Medicine
DX: R51.9 Headache, unspecified (principal)
CPT/HCPCS: 96361; 96374; 96375; 99284; J1885; J2405; J7030

== ENCOUNTER 2024-08-19 00:09 | Day surgery (SDC) | payer OTHER, SELFPAY ==
[2024-08-16 10:20] VITALS: BMI 34.6
--- NOTE | 2024-08-16 10:21 | PC.NURSE ---
Report to the Outpatient Waiting Room, entrance under the green pavilion located off [facility], at time _1100_ on date _[phone]_. Planned Procedure Time: _1pm_.? Time changes happen often and if your time is changed the preop area will call you the afternoon before. - You and your visitor will be asked to self-screen and do not enter if you have any COVID symptoms. Please call surgeon if you need to reschedule. - A mask is optional within the hospital at this time. Patients may have clear liquids (water, carbonated beverages, clear teas, apple juice) until 3 hours prior to surgery with a maximum of 20 ounces. - No food from midnight until time of surgery and no smoking. This includes no chewing gum, candy or mints. Take only the following medications with a SIP of water on the morning of surgery: Albuterol inhaler if needed DO NOT STOP ANY OF YOUR OTHER PRESCRIPTION MEDICATIONS PRIOR TO SURGERY EXCEPT THE FOLLOWING Medications to discontinue per physician ___None____ Please no make-up, nail french, hairspray, perfume, deodorant, or body powder the day of surgery.? No jewelry (including any body piercings) or valuables the day of surgery, leave them at home.? Please take a shower or bath the night before, or the morning of, surgery with an antibacterial soap.? Wear comfortable, loose fitting clothing.? - Jewelry must be removed prior to entering the operating room.? Rings and piercings that are not removed may be cut off. - The hospital will not accept responsibility for valuables.? - Please leave all valuables, including medications, at home the day of surgery. If you are going home after surgery, a licensed operator and truck driver must drive you home.? - NO public transportation without another adult if you receive anesthesia. - We recommend that an adult stay with you for 24 hours following discharge. - We also recommend that you do not drive, make important decision, drink alcoholic beverages, or take any drugs that were not prescribed by your health care provider for at least 24 hours after your discharge time. Follow any additional instructions given to you from your surgeon. Telephone instructions given to _Sydney_and asked if any additional questions and then verbalized understanding. Patient advised to call surgeon office or pre surgery nurse liaison [phone] if any additional questions.
[2024-08-19 11:09] VITALS: BP 117/66; PULSE 72; RESP 16; TEMP 36.1; O2SAT 100
[2024-08-19] MEDS: ACETAMINOPHEN 500 MG TABLET 1000 MG PO (11:38)
[2024-08-19] MEDS: LACTATED RINGERS 1,000 ML 30 ML IV CONT (11:39)
--- NOTE | 2024-08-19 12:05 | P.PNAN_ITS ---
Anes - Initial Pre Proc Eval Procedure: Operation Date: 08/19/24 13:00 Proposed Procedures p Suction Dilatation and Curettage - Pablito Lakhani MD Date/Time: 08/19/24 12:05 Surgeon: Pablito Lakhani MD Pre Op Diagnosis: retained products of conception Patient Data Age: 23 Gender: F Height: 1.57 m Weight: 85.9 kg Allergies Allergy/AdvReac Type Severity Reaction Status Date / Time Latex, Natural Rubber Allergy Rash Verified 08/16/24 10:16 diphenhydramine AdvReac Anxiety Verified 08/16/24 10:16 [From Benadryl] Home Medications Medication Instructions Recorded Confirmed Type albuterol sulfate 90 mcg/actuation 2 puff inhalation QID PRN Dyspnea 08/16/24 08/16/24 History aerosol inhaler Patient hx anesthesia problems: none Family hx anesthesia problems: none Results Review: All pre-operative results and documents have been reviewed as part of the pre- operative evaluation. [facility] Past Medical History Medical History Anxiety and depression Asthma Eczema Fibromyalgia Migraines Obese Surgical History Surgical History Hx of tympanostomy tubes Family History Family History Mother Chronic obstructive pulmonary disease Asthma Lupus Pacemaker Depression Multiple sclerosis A-fib Father Diabetes mellitus Kidney failure Anxiety Gout Sibling Asthma Sibling Asperger's disorder Autism Asthma Social History Social History Smoking status: Never smoker Alcohol intake: never Substance use: never Living arrangements: with family Occupation/Education: student Gender identity (if verbalized by the patient): Female Spiritual care concerns: No Anes - Eval Final PreProcedure Day of Procedure 08/19/24 12:05 Patient weight: obese Heart: regular rate and rhythm Lungs: clear to auscultation Airway: Mallampati scale class II Neurological: alert and oriented Last oral intake: >/= 8 hours ASA classification: II Emergent: no Anesthetic plan: proceed Anesthesia type and monitoring: general GIVS and standard monitoring Results Review: All pre-operative results and documents have been reviewed as part of the pre- operative evaluation. Obesity. Informed Consent: The patient's anesthetic plan and its attendant risks and benefits were discussed with the patient/family/POA. Questions were solicited and answers provided to the satisfaction of the patient/family/POA.
[2024-08-19 12:17] VITALS: BMI 33.6
--- NOTE | 2024-08-19 13:02 | WPDHPUPDATE1 ---
History and Physical Update Update Date/Time: 08/19/24 13:02 History and Physical has been reviewed, including an updated exam of the patient. There are NO changes in the patient's condition. Risks, benefits, and alternatives have been discussed and questions answered. Patient agrees to proceed with procedure.
[2024-08-19 13:29] VITALS: BP 91/74; PULSE 87; RESP 12; O2SAT 95
--- NOTE | 2024-08-19 13:36 | P.OP_ITS ---
Procedure Note - Detailed Date of Procedure 08/19/24 Pre-op Diagnosis retained products of conception Post-op Diagnosis Same Procedure Performed Suction D&C Surgeon Pablito Lakhani MD Anesthesia MAC Indications missed Findings normal-appearing vulva vagina and cervix to. Moderate amount of products conception within the uterus. 8 cm uterus Description of Procedure the patient was taken the operating room. She was prepped and draped in dorsal lithotomy position after induction of mac anesthesia. A speculum was placed in the vagina. Cervix grasped with tenaculum. The cervix was dilated to about 1 cm Using Teixeira dilators. A 8. Kiswahili curved curette was used to perform suction D&C. The curette was introduced and vacuum was applied. The curette was removed over all surfaces of the intrauterine cavity multiple times. This was done until all the surfaces were clear and had the familiar grainy texture they can be felt through the instrument. A sharp curette was then used to curettage all the surfaces. The suction cup was then reapplied 1 more time to remove any debris. The instruments were removed. The speculum and tenaculum were removed. The patient tolerated the procedure well. She was taken recovery room stable condition. Estimated Blood Loss 50 Drains No Packing No Pathology Yes Complications No immediate complications Condition Stable Disposition PACU
[2024-08-19] MEDS: fentaNYL CITRATE INJ (*CRX) 100 MCG/2 ML VIAL 25 MCG IV PUSH ×2 (13:41→13:43)
--- NOTE | 2024-08-19 13:42 | SUR.PHASEII ---
1342 - pt A positive noted
[2024-08-19 13:55] VITALS: BP 96/70; PULSE 83; RESP 20
[2024-08-19] MEDS: ONDANSETRON INJ 4 MG/2 ML VIAL IV PUSH (14:16)
[2024-08-19 14:25] VITALS: BP 96/58; PULSE 78; RESP 20
[2024-08-19] MEDS: oxyCODONE HCL (*CRX) 5 MG TAB IR PO (14:47)
[2024-08-19 14:55] VITALS: BP 97/53; PULSE 72; RESP 20
[2024-08-19 15:25] VITALS: BP 106/65; PULSE 68; RESP 20
== END 2024-08-19 15:32 | disposition home or self-care (01) ==
PROVIDERS: PCP Internal Medicine; Visit Provider Obstetrics & Gynecology
PROC: (CPT 59820; principal; 2024-08-19 13:00)
DX: O02.1 Missed abortion (principal)
CPT/HCPCS: 59820; 88305; A9270; J2003; J2250; J2405; J2704; J3010; J7120

== ENCOUNTER 2024-12-07 11:56 | Emergency (ER) | payer OTHER, SELFPAY ==
--- OUTSIDE RECORDS SUMMARY | 2024-12-07 11:57 | XMS_ITS | Clinical Summary ---
Author Organization [facility] Address [address] [place] [id number] Care Team Providers Care Nursing Informatics Clinical Analyst Name Role Phone Anneliese Malik Sabrina PAROLE OFFICER Primary Care Provider + Allergies No known active allergies Medications No known medications Active Problems No known active problems Social History Tobacco Use Types Packs/Day Years Used Date Smoking Tobacco: Never Assessed Personal Safety Answer Date Recorded Getting School Help Needed Not on file 11/25 Comments Unknown Sex and Gender Information Value Date Recorded Sex Assigned at Not on file Legal Sex Female 11:39 AM CDT Gender Identity Not on file Sexual Orientation Not on file Plan of Treatment Health Maintenance Due Date Last Done Comments Cervical Cancer Screening 2001 Depression Screening 2001 Hepatitis C Screening 2001 Pneumococcal vaccine <65 (1 of 1 - PPSV23) 2007 10/07/2002, 06/13/2002, 01/03/2002, Additional history exists Meningococcal B Vaccine (1 o f 2 - Standard) 2017 Regular Well Visit/Exam 18-64 2019 Covid-19 Vaccine (2 - 2023-2 5 season) 2024 02/02/2021 Influenza Vaccine (#1) 2024 , 07/23/2020, 08/02/2019, Additional history exists DTaP/Tdap/Td Vaccine (8 - Td or Tdap) 11/22/2031 11/22/2021, 05/09/2014, 06/22/2007, Additional history exists Hepatitis B Screening Completed 06/13/2002 , 2001, 2001 Varicella Vaccines Completed 06/22/2007, 02/07/2003 HPV Vaccines Completed 08/04/2015, 05/2015, 05/09/2014 Insurance [facility] Care Teams Nursing Informatics Clinical Analyst Relationship Specialty Start Date End Date Anneliese Malik NP [address] [place] [address] DEPT [facility] [id number] PCP - General Nurse Practitioner 04/12/22
--- OUTSIDE RECORDS SUMMARY | 2024-12-07 11:58 | XMS_ITS | Referral Summary ---
Author Organization [facility] [place] Address [address] [place] [id number] Care Team Providers Care Fisheries Inspector Name Role Phone King Anneliese Sabrina BODY TECHNICIAN Primary Care Provider + Allergies No known [...] Orientation Not on file Plan of Treatment Not on file Insurance [facility] Care Teams Fisheries Inspector Relationship Specialty Start Date End Date Anneliese Malik NP [facility] [place] [place] [id number] PCP - General Nurse Practitioner 04/12/22
--- OUTSIDE RECORDS SUMMARY | 2024-12-07 11:58 | XMS_ITS | Data Portability ---
Author Organization [facility] [place] Address [address] [place] [address] [place] [address] Assessment No assessment recorded. Plan of Treatment Reminders Order Date Submit Date Provider Last Modified By Organization Details Last Modified Time Details Appointments None recorded. Lab test, urine 2023 024 [email or web address] [place], [address], [place], [address], 4 18:20:01 Referral None recorded. Procedures None recorded. Surgeries suction dilation & curettage (SURG) 2023 024 [id number], [address], [place], [address], 4 11:16:07 Imaging US, obstetric, transvagina l 2023 024 [email or web address] [place], [address], [place], [address], 4 21:15:15 Medication Orders Diflucan 150 mg tablet 2024 025 [facility][id number], [address] [facility] [address], [place], [place], [id number], 5 16:44:20 Patient TargetsNo targets recorded. Patient InstructionsNo instructions recorded. Reason for Referral None Reported. Results Created Date Observation Date Name Description Value Unit Range Abnormal Flag Note LastModifiedBy Organization Detail LastModifiedTime 07/17/20 24 07/17/2024 BHCG, QUANT ITATI VE B-HCG 75.4 mIU/m L This assay was perfo rmed using [employer] ratio n reage nts and test kits. Value s obtai sebastien with other assay metho ds or kits [facility]no t be [facility] . Refer ence Range s: Non-p regna nt, preme nopau adelaide women : 0.0-5 .3 mIU/m L Postm enopa usal women : 0.0-7 .0 mIU/m L Eva l Pregn compa: Gesta yolanda l Age bHCG Conc. - mIU/m L 3 Weeks 5.8 - 71.7 4 Weeks 9.5 - 750 5 Weeks 217-7 138 6 Weeks 158 - 31,79 5 7 Weeks 3,697 - 162,5 63 8 Weeks 32,06 5 - 149,5 71 9 Weeks 63,80 3 - 151,4 10 10 Weeks 46,50 9 - 186,9 77 12 Weeks 27,83 2 - 210,6 12 14 Weeks 13,95 0 - 62,53 0 15 Weeks 12,03 9 - 70,97 1 16 Weeks 9,040 - 56,45 1 17 Weeks 8,175 - 55,86 8 18 Weeks 8,099 - 58,17 6 Not Available [facility] (Lab) [address], [place], [address], 07/18/2024 08:55:53 07/19/20 24 07/19/2024 BHCG, QUANT ITATI VE B-HCG 251.0 mIU/m L This assay was perfo rmed using [employer] ratio n reage nts and test kits. Value s obtai sebastien with other assay metho ds or kits canno t be used inter [facility] . Refer ence Range s: Non-p regna nt, preme nopau [place]elaide women : 0.0-5 .3 mIU/m L Postm enopa usal women : 0.0-7 .0 mIU/m L Eva l Pregn compa: Gesta yolanda l Age bHCG Conc. - mIU/m L 3 Weeks 5.8 - 71.7 4 Weeks 9.5 - 750 5 Weeks 217-7 138 6 Weeks 158 - 31,79 5 7 Weeks 3,697 - 162,5 63 8 Weeks 32,06 5 - 149,5 71 9 Weeks 63,80 3 - 151,4 10 10 Weeks 46,50 9 - 186,9 77 12 Weeks 27,83 2 - 210,6 12 14 Weeks 13,95 0 - 62,53 0 15 Weeks 12,03 9 - 70,97 1 16 Weeks 9,040 - 56,45 1 17 Weeks 8,175 - 55,86 8 18 Weeks 8,099 - 58,17 6 Not Available [facility] (Lab) [address], [place], [address], 07/20/2024 05:28:24 11/06/19 25 11/06/2024 WOMEN 'S HEALT H SWAB PLUS, RUBEN bacterial vaginosis (bv), tma Negati ve negati ve Not Available [facility] (Lab) [address] [place], [address], 11/08/2024 01:44:49 11/06/19 25 11/06/2024 WOMEN 'S HEALT H SWAB PLUS, RUBEN madalyn species, tma Positi ve negati ve abnormal Not Available [facility] (Lab) [address] [place], [address], 11/08/2024 01:44:49 11/06/19 25 11/06/2024 WOMEN 'S HEALT H SWAB PLUS, RUBEN madalyn glabrata, tma Negati ve negati ve Not Available [facility] (Lab) [address] [place], [address], 11/08/2024 01:44:49 11/06/19 25 11/06/2024 WOMEN 'S HEALT H SWAB PLUS, RUBEN trichomonas vaginalis, tma Negati ve negati ve Not Available [facility] (Lab) [address] [place], [address], 11/08/2024 01:44:49 11/06/19 25 11/06/2024 WOMEN 'S HEALT H SWAB PLUS, RUBEN chlamydia trachomatis, PCR Negati ve negati ve Not Available [facility] (Lab) [address], [place], [address], 11/08/2024 01:44:49 11/06/1911/06/2024 WOMEN 'S HEALT H SWAB PLUS, RUBEN neisseria gonorrhoeae, PCR Negati ve negati ve Bacte rial vagin osis detec ts the follo wing bacte teresita assoc iated with bacte rial vagin osis (BV): Lacto bacil magnus (L. gasse ri, L. crisp atus and L. jense jayleen), Gardn erell a vagin kelsie, and Atopo bium vagin ae. A singl e quali tativ e resul t is repor charlie base on instr ument softw are to deter mine BV posit kenton or negat kenton statu s. The Raquel da speci es group tests for C. albic ans, C. tropi calis , C. parap monalisa is, C. dubli niens is. Testi ng is perfo rmed using the Trans cript ion Media charlie Ampli ficat ion metho d. Tests for Raquel da glabr sourav, Trich omona s vagin kelsie, Chlam ydia trach omati s, and Neiss eria gonor rhoea e are also inclu ded in this panel . Not Available [facility] (Lab) [address], [place], [address], 11/08/2024 01:44:49 07/26/20 24 07/26/2024 US, obste tric, trans vagin al No observ ation record ed. [facility] [address], [place], [address], 07/26/2024 13:56:03 07/26/20 24 07/26/2024 US, obste tric, follo w-up No observ ation record ed. [address] [facility], [place], [address], 07/29/2024 17:36:39 08/02/20 24 08/02/2024 US, obste tric, trans vagin al No observ ation record ed. [email or web address] [place] [address], [place], [address], 08/02/2024 13:02:28 08/02/20 24 08/02/2024 US, obste tric, trans vagin al No observ ation record ed. [email or web address] [place] [address], [place], [address], 08/03/2024 14:52:42 08/13/20 24 08/13/2024 US, obste tric, trans vagin al No observ ation record ed. [email or web address] [place] [address], [place], [address], 08/13/2024 12:36:53 08/13/20 24 08/13/2024 US, obste tric, trans vagin al No observ ation record ed. [email or web address] [address], [place], [address], 08/13/2024 20:13:32 08/16/20 24 08/16/2024 US, obste tric, trans vagin al No observ ation record ed. kalin [place] [address], [place], [address], 08/16/2024 17:01:16 08/16/20 24 08/16/2024 US, obste tric, trans vagin al No observ ation record ed. [email or web address] [address], [place], [address], 08/16/2024 21:11:23 Result Notes None recorded. Problems Name Problem SNOMED Code Status Onset Date Resolution Date Notes Provider Name and Address Organization Details Recorded Time Cyst of vulva 48805460 Completed 201807/09/2021 Vulvar cyst;Rec orded Elsewher e: No Locat ion: Mary avendano [facility] S ource: EHR Production Quality Manager alber: N Practi ce ID: [email or web address] Javon lable Time: 09:15:00 AM Radha Gould MD [address], [place], [address], [facility] 14:33:19 Fibromya lgia 814185853 Active 2020 Radha Gould MD [address], [place], [address], [facility] 15:38:53 Asthma 737236873 Active 2020 Radha Gould MD [address], [place], [address], [facility] 15:38:58 Fracture of fifth lumbar vertebra 539104876 Active 2020 Radha Gould MD [address], [place], [address], [facility] 15:40:11 Pregnanc y 90726907 Completed 202002/25/2022 Susan turner, [facility] 2 12:02:27 Anxiety in pregnanc y 4002510286 9109 Completed 2020 zoloft to start 08/31. EPDS 10 11/01 Susan turner, [facility] 2 12:02:18 Rubella non-immu ne 356531270 Completed MMR PP Susan turner, [facility] 2 12:02:18 Fracture of lumbar spine 280617242 Completed L5 3 years ago, went through PT Susan turner, [facility] 2 12:02:18 ultrasou nd scan abnormal [id number] 9109 Completed probably club feet Susan stiles null, [facility] 2 12:02:18 Anxiety 09662267 Active 2021 Elizabeth Paulinotz [facility], [facility] 12:53:52 Notes:SSM MFM Level II u/s o nly 10/06/21 11:15 - per Rosa Elena BRYANTM DR will review results with pt Level II u/s only 11/05 11:15AM Problem Notes None recorded. Procedures Surgical History Date Name Laterality Status Provider Name and Address Organization Details Recorded Time 08/19/20 24 Dilation and Curettage completed Xiao Oates [facility] 2024 10:09:46 08/19/20 24 LAPAROSCOPIC OVARIAN CYSTECTOMY (SURG) completed Maureen Leija [facility] 08/19/2024 14:57:50 09/01/20 23 Ovarian Cystectomy completed Xiao Oates [facility] 04/04/2024 11:32:42 10/28/19 23 Excision and closure completed Pablito Lakhani MD [address], [place], [address], [facility] 10/28/2022 18:17:25 10/28/19 23 Date of Last Pap Smear completed Antoinette Hua [facility] 10/28/2022 15:52:30 Imaging Results Imaging Date Name Status LastModified by Organization Details LastModified Time 07/26/2024 US, obstetric, transvaginal completed kalin Juan [address], [place], [address], 07/26/2024 13:56:03 07/26/2024 US, obstetric, follow-up completed TURNER [address], [place], [address], 07/29/2024 17:36:39 08/02/2024 US, obstetric, transvaginal completed [email or web address] [place] [address], [place], [address], 08/02/2024 13:02:28 08/02/2024 US, obstetric, transvaginal completed [email or web address] [address], [place], [address], 08/03/2024 14:52:42 08/13/2024 US, obstetric, transvaginal completed [email or web address] [place] [address], [place], [address], 08/13/2024 12:36:53 08/13/2024 US, obstetric, transvaginal completed [email or web address] [address], [place], [address], 08/13/2024 20:13:32 08/16/2024 US, obstetric, transvaginal completed [email or web address] [place] [address], [place], [address], 08/16/2024 17:01:16 08/16/2024 US, obstetric, transvaginal completed [email or web address] [address], [place], [address], 08/16/2024 21:11:23 Procedure Notes None recorded. Medical Equipment None Reported. Allergies Allergen ID Allergen Name Allergen Category Reaction Reaction Severity Criticality Documentation Date Start Date Code Code System Note Provider Name and Address Organization Details Recorded Time 2464 latex environme nt,medica tion Not available Not available Not available 07/15/2020 40134 91 RxNorm Antoinette turner ID - [facility] 0 15:11:48 Medications Name Sig Start Date Stop Date Status Note LastModified by Organization Details LastModified Time cyclobenzap rine 10 mg tablet 07/15 completed Not Available Not Available Not Available amoxicillin 500 mg capsule 05/24 completed Not Available Not Available Not Available doxycycline hyclate 100 mg capsule 05/24 completed Not Available Not Available Not Available ketoconazol e 2 % shampoo 07/09 completed Not Available Not Available Not Available triamcinolo ne acetonide 0.5 % topical cream APPLY A THIN LAYER TO THE AFFECTED AREA(S) BY TOPICAL ROUTE 2 TIMES PER DAY 11/23 completed Not Available Not Available Not Available azithromyci n 250 mg tablet completed Not Available Not Available Not Available fluconazole 150 mg tablet Take 1 tablet every other day by oral route. active Not Available Not Available No t Available sumatriptan 100 mg tablet active Not Available Not Available Not Available phenazopyri dine 200 mg tablet 07/09 completed Not Available Not Available Not Available sumatriptan 25 mg tablet 07/15 completed Not Available Not Available Not Available metronidazo le 0.75 % (37.5 mg/5 gram) vaginal gel Insert 1 applicato rful every day by vaginal route for 5 days. 11/06 completed Not Available Not Available Not Available ondansetron HCl 4 mg tablet 07/13 completed Not Available Not Available Not Available prednisone 20 mg tablet 07/03 completed Not Available Not Available Not Available phentermine 15 mg capsule active Not Available Not Available Not Available topiramate 25 mg tablet 07/13 completed Not Available Not Available Not Available hydroxyzine HCl 50 mg tablet 07/15 completed Not Available Not Available Not Available butalbital- acetaminoph en-caffeine 50 mg-325 mg-40 mg tablet 09/29 completed Not Available Not Available Not Available nystatin-tr iamcinolone 100,000 unit/gram-0 .1 % topical ointment APPLY TOPICALLY TO THE AFFECTED AREA TWICE DAILY 07/13 completed Not Available Not Available Not Available oxycodone-a cetaminophe n 5 mg-325 mg tablet completed Not Available Not Available Not Available amoxicillin 875 mg tablet 05/24 completed Not Available Not Available Not Available famotidine 20 mg tablet 07/09 completed Not Available Not Available Not Available metoclopram cielo 5 mg tablet Take 1 tablet every 6-8 hours by oral route as needed. 07/09 completed Not Available Not Available Not Available cephalexin 500 mg capsule 03/03 completed Not Available Not Available Not Available erythromyci n 5 mg/gram (0.5 %) eye ointment 07/15 completed Not Available Not Available Not Available triamcinolo ne acetonide 0.1 % topical ointment APPLY A THIN LAYER TO THE AFFECTED AREA(S) BY TOPICAL ROUTE 2 TIMES PER DAY 07/13 completed Not Available Not Available Not Available nystatin 100,000 unit/gram topical cream APPLY TO THE AFFECTED AREA(S) BY TOPICAL ROUTE 2 TIMES PER DAY 07/13 completed Not Available Not Available Not Available clotrimazol e-betametha sone 1 %-0.05 % topical cream APPLY TO THE AFFECTED AND SURROUNDI NG AREAS OF SKIN BY TOPICAL ROUTE 2 TIMES PER DAY IN THE MORNING AND EVENING FOR 2 WEEKS 11/06 completed Not Available Not Available Not Available misoprostol 200 mcg tablet 08/16 completed Not Available Not Available Not Available polymyxin B sulfate 10,000 unit-trimet hoprim 1 mg/mL eye drops 04/01 completed Not Available Not Available Not Available fluoxetine 10 mg capsule take 2 capsule by oral route every day 07/15 completed Not Available Not Available Not Available mupirocin 2 % topical ointment 07/15 completed Not Available Not Available Not Available zolpidem 5 mg tablet Take 1 tablet every day by oral route. 04/01 completed Not Available Not Available Not Available ergocalcife rol (vitamin D2) 1,250 mcg (50,000 unit) capsule active Not Available Not Available Not Available cefuroxime axetil 500 mg tablet 04/15 completed Not Available Not Available Not Available polyethylen e glycol 3350 17 gram/dose oral powder 07/15 completed Not Available Not Available Not Available estradiol 0.01% (0.1 mg/gram) vaginal cream Insert 1 applicato rful every day by vaginal route as directed for 14 days. 07/13 completed Not Available Not Available Not Available albuterol sulfate HFA 90 mcg/actuati on aerosol inhaler active Not Available Not Available Not Available norethindro ne (contracept kenton) 0.35 mg tablet Take 1 tablet every day by oral route. 04/04 completed Not Available Not Available Not Available hydrocortis one 2.5 % topical ointment 07/15 completed Not Available Not Available Not Available ketoconazol e 2 % topical cream 07/15 completed Not Available Not Available Not Available fluoxetine 20 mg capsule 07/15 completed Not Available Not Available Not Available sertraline 50 mg tablet TAKE 1 TABLET BY MOUTH EVERY DAY 07/03 completed Not Available Not Available Not Available naproxen 500 mg tablet 07/15 completed Not Available Not Available Not Available metoclopram cielo 10 mg tablet Take 1 tablet 3 times a day by oral route. 04/01 completed Not Available Not Available Not Available Heartburn Relief (famotidine ) 10 mg tablet 07/15 completed Not Available Not Available Not Available escitalopra m 10 mg tablet 07/09 completed Not Available Not Available Not Available nitrofurant oin monohydrate /macrocryst als 100 mg capsule Take 1 capsule every 12 hours by oral route. 11/22 completed Not Available Not Available Not Available duloxetine 20 mg capsule,del ayed release completed Not Available Not Available Not Available One A Day Women's DHA 07/03 completed Not Available Not Available Not Available Melva 30 mg tablet 07/13 completed Not Available Not Available Not Available Fioricet 50 mg-300 mg-40 mg capsule Take one tablet as needed for migraines . Maximum use of 3 times per week. 09/29 completed Not Available Not Available Not Available Take Action 1.5 mg tablet 07/09 completed Not Available Not Available Not Available Qvar RediHaler 40 mcg/actuati on HFA breath activated aerosol INHALE 2 PUFFS BY MOUTH TWICE DAILY 07/03 completed Not Available Not Available Not Available Aurovela Fe 1-20 (28) 1 mg-20 mcg (21)/75 mg (7) tablet 05/03 completed Not Available Not Available Not Available Slynd 4 mg (28) tablet TAKE 1 TABLET BY MOUTH EVERY DAY 11/23 completed Not Available Not Available Not Available BinaxNOW COVID-19 Ag Self Test kit 07/03 completed Not Available Not Available Not Available Paxlovid 300 mg (150 mg x 2)-100 mg tablets in a dose pack 07/13 completed Not Available Not Available Not Available Vitals Date Recorded Body height Body mass index (BMI) Body weight Systolic blood pressure Diastolic blood pressure Provider Name and Address Organization Details Last Updated DateTime 08/16/2024 157.48 cm 34.6 kg/m2 01230.96 g 117 mm[Hg] 82 mm[Hg] [facility] 4 09:47:33 Date Recorded Body height Body mass index (BMI) Body weight Systolic blood pressure Diastolic blood pressure Provider Name and Address Organization Details Last Updated DateTime 2024 157.48 cm 34.2 kg/m2 99069.77 g 122 mm[Hg] 72 mm[Hg] [facility] 4 10:08:12 Date Recorded Body height Body mass index (BMI) Body weight Systolic blood pressure Diastolic blood pressure Provider Name and Address Organization Details Last Updated DateTime 09/05/2024 157.48 cm 34.2 kg/m2 27047.77 g 120 mm[Hg] 67 mm[Hg] [facility] 4 18:12:42 Date Recorded Body height Body mass index (BMI) Body weight Systolic blood pressure Diastolic blood pressure Provider Name and Address Organization Details Last Updated DateTime 11/06/2024 157.48 cm 33.1 kg/m2 91863.22 g 119 mm[Hg] 84 mm[Hg] [facility] 5 16:06:15 Social History Question Answer Notes LastModified by Organizat ion Details LastModified Time Tobacco Smoking Status Never Smoker Antoinette Hua [facility] 07/15/2020 15:14:36 What Is Your Level Of Alcohol Consumption? Occasional [email or web address] Information not available 12/08/2021 Are You Blind Or Do You Have Difficulty Seeing? No Information n ot available 04/15/2021 What Is Your Level Of Caffeine Consumption? Occasional Information not available 04/15/2021 In The 14 Days Before Symptom Onset, Have You Had Close Contact With A Laboratory-confirm ed COVID-19 While That Case Was Ill? No [email or web address] Information n ot available 12/08/2021 In The 14 Days Before Symptom Onset, Have You Had Close Contact With A Person Who Is Under Investigation For COVID-19 While That Person Was Ill? No [email or web address] Information not available 12/08/2021 Have You Been To An Area Known To Be High Risk For COVID-19? No [email or web address] Information not available 12/08/2021 Are You Deaf Or Do You Have Serious Difficulty Hearing? No Information not available 04/15/2021 What Type Of Diet Are You Following? REGULAR Information n ot available 04/15/2021 Have You Ever Been Counseled For Unhealthy Alcohol Use? No [email or web address] Information not available 01/12/2022 Do You Use Your Seat Belt Or Car Seat Routinely? Yes Information not available 04/15/2021 Do You Have Smoke And Carbon Monoxide Detectors In Your Home? Yes Information not available 04/15/2021 Do You Feel Stressed (tense, Restless, Nervous, Or Anxious, Or Unable To Sleep At Night)? [id number] Information not available 04/15/2021 Do You Use Any Illicit Or Recreational Drugs? No Information not available 04/15/2021 Do You Use Sunscreen Routinely? Yes Information not available 04/15/2021 Has Tobacco Cessation Counseling Been Provided? No [email or web address] Information not available 12/08/2021 Do You Or Have You Ever Used Any Other Forms Of Tobacco Or Nicotine? No [email or web address] Information not available 12/08/2021 Sex: Unknown Functional Status Question Answer Note LastModified by Organizat ion Details LastModified Time Do you have difficulty walking or climbing stairs? No [email or web address] Information not available 12/08/2021 Are you able to walk? YESWOREST Information not available 04/15/2021 Are you able to care for yourself? Yes [email or web address] Information not available 12/08/2021 Do you have difficulty dressing or bathing? No Information not available 12/08/2021 What is your exercise level? Moderate Information not available 04/15/2021 Mental Status None recorded. Family History Relationship Description Onset Age of this Age Resolved Age Notes LastModified by Organization Details LastModified Time Mother Cyst of ovary [email or web address] Not available 2020 13:42:25 Mother Asthma [email or web address] Not available 07/15/2020 15:13:41 Mother Seizure disorder [email or web address] Not available 2020 13:42:25 Mother Heart disease [email or web address] Not available 2019 15:14:31 Father Diabetes mellitus [email or web address] Not available 2019 15:14:05 Father Hyperlipidem ia phewitt Not available 2020 13:42:25 Father Heart disease [email or web address] Not available 2019 15:14:31 Medical History Condition Response Allergies (Food, seasonal, environmental ) Y Other Y Drug/Latex Allergies/Reactions Y Breast Cancer N Blood Transfusion N Lung Disease N Dermatologic Disorders N Defects or Inherited Disease N Breast Problem N Gestational Diabetes N Hematologic disorders N Anesthesia Complications N History of STI N Deep Vein Thrombosis N Polycystic ovary syndrome N Anxiety Disorder Y Autoimmune disease N Arthritis N Polyps N Infertility N History of abnormal pap N Acid Reflux (GERD) N Cancer N Varicosities N Stroke N Neurologic/Epilepsy N Endometriosis N High Cholesterol N Headaches Y Fibromyalgia N Kidney Disease N Heart Problems N Thyroid Problems N Kidney or Bladder Problems N GI Problems N Eating Disorder N Anemia N Art (IVF or FET) N Psychiatric Illness N Ovarian Cancer N Diabetes N Pulmonary (TB, Asthma) N Hepatitis/Liver Disease N No Past Medical History N Eczema N Urinary Tract Infection N Abuse/Domestic Violence N Asthma Y Trauma/Violence N Depression/ depression Y Heart Disease N Pre-Eclampsia N Hypertension N Osteoporosis N Thrombophilias N Gynecological History Statement/Question Response Date of Last Mammogram Flow Moderate Date of LMP 10/19/2024 Was last menstrual period normal Y STIs/STDs N Date of Last Colonoscopy Desired Control Method Abnormal Pap N On BCP's at Conception? Y HPV Vaccine N Duration of Flow (days) 5 Current Control Method None Age at First Child 21 Are cycles usually normal Y Frequency of Cycle (Q days) 28 Most Recent Bone Density Sexually Active? Y Menses Monthly Y Age of first menstrual cycle 10 Date of Last Pap Smear 10/28/2022 Sexual Problems? Y LMP Definite Obstetrics History GPAL:G 2 P 1 0 1 1 Type Value Full Term 1 Induced 1 Living 1 Total 2 Past Encounters Encounter ID Performer Location Encounter Start Date Encounter Closed Date Diagnosis/Indication Diagnosis SNOMED-CT Code Diagnosis ICD10 Code Diagnosis Note [id number] Pablito Lakhani MD [place] [address] [address] 07/15/2020 14:49:27 07/15/2020 16:51:46 Mass of left breast [id number] 2205064 N63.20 patient is an 19-year-ol d female with a palpable, tender breast lump. [place]. [id number] Pablito Lakhani MD [place] [address],[place] [address] 05/03/2021 15:51:46 05/03/2021 16:46:03 Postcoital bleeding 53006709 N93.0 Dyspareunia 13050031 N94 .10 This patient is a 20-year-ol d female with painful cramping after intercours e. she also reports occasional spotting after intercours e. We are going to repeat an ultrasound . She had a normal exam. She was non-tender on exam. Palpation of the uterus did not elicit discomfort . We spent considerab le time together. I discussed the normal menstrual cycle and when she should focus her efforts on intercours e to get . we spent more than 35 minutes in this complex topic. She had 2 complex tops to discuss. They are of unknown prognosis. [id number] Nurys Yates [place] [address],[place] [address] 05/10/2021 15:58:34 05/10/2021 16:44:07 Pain in pelvis 20506288 R10.2 [id number] Pablito Lakhani MD [place] [address],[place] [address] 05/12/2021 17:57:34 05/13/2021 09:37:42 Dyspareunia [id number] N94.10 This patient is a 20-year-ol d female who had and pain with intercours e and some postcoital bleeding. She states that has resolved. We obtained a pelvic ultrasound reviewed those results today. The results were normal. Patient is trying to become . She discontinu ed her control about 6 weeks ago and still is not achieved regular periods. She was instructed return if her periods do not become regular within the next 3 months. We talked again about the menstrual cycle and ovulation. We spent more than 15 minutes face-to-fa ce. [id number] Jaelyn Asif [place] [address],[place] [address] 07/09/2021 13:41:50 07/09/2021 15:09:48 [id number] Radha Gould MD [place] [address] [place] [address] 07/09/2021 13:42:13 07/09/2021 15:45:38 Asthma [id number] J45.909 Fibromyalgia 142530914 M 79.7 Body mass index 30+ - obesity 273149067 Z68.32 Anxiety in 909 3601360 9109 F41.9 [id number] Jaelyn Asif [place] [address],[place] [address] 08/03/2021 12:21:58 08/03/2021 13:05:08 screening 191993782 Z36.82 [id number] Radha Gould MD [place] [address] [place] [address] 1 08/03/2021 13:40:14 08/04/2021 10:17:22 Routine care 086584428 Z34.91 [id number] Radha Gould MD [place] [address] [place] [address] 1 08/31/2021 13:53:17 09/01/2021 09:57:51 Anxiety in 5662234802 9109 F41.9 [id number] Nurys Yates [place] [address] [place] [address] 1 09/29/2021 11:24:03 09/29/2021 14:50:14 screening for malformation 699310590 Z36.3 [id number] Radha Gould MD [place] [address] [place] [address] 09/29/2021 11:24:40 09/29/2021 12:54:30 ultrasound scan abnormal 4548924871 9109 O28.3 Anxiety in 506 2432633 9109 F41.9 Back pain complicating 85832744 O26.899 [id number] [facility] [address],[place] [address] 10/20/2021 11:20:53 10/20/2021 11:54:35 Urinary symptoms 692426883 R39.9 [id number] Jaelyn Asif [place] [address],[place] [address] 1 10/20/2021 11:38:41 10/20/2021 11:54:52 Cervical incompetence 84737815 O34.30 Z3A.23 [id number] Pablito Lakhani MD [place] [address],[place] [address] 10/29/2021 15:45:53 10/29/2021 16:25:22 Routine care 018726595 Z34.02 43372 [facility] [address],[place] [address] 1 11/22/2021 11:25:57 11/22/2021 19:01:37 Routine care 900046512 Z34.93 [id number] [facility] [address],[place] [address] 12/08/2021 11:23:43 12/08/2021 12:51:42 Routine care 539366485 Z34.93 [id number] [facility] [address],[place] [address] 12/24/2021 15:34:10 12/24/2021 16:03:43 Routine care 908629339 Z34.93 [id number] [facility] [address],[place] [address] 1 01/12/2022 11:34:26 01/12/2022 14:00:32 Routine care 754500468 Z34.93 13528 [facility] [address],[place] [address] 01/19/2022 09:59:14 01/19/2022 10:59:49 Routine care 538506783 Z34.93 [id number] Radha Gould MD [place] [address],[place] [address] 01/24/2022 16:09:36 01/24/2022 16:36:14 Routine care 689266476 Z34.91 [id number] Jaelyn Asif [place] [address],[place] [address] 1 01/28/2022 12:03:31 01/28/2022 12:29:43 Maternal obesity complicating , childbirth and the puerperium, antepartum 1137153019 07 O99.213 O28.3 Z3A.38 [id number] [facility] [address],[place] [address] 02/02/2022 18:04:57 02/02/2022 18:48:45 Routine care 669386129 Z34.93 [id number] KRISTIAN Comer [place] [address],[place] [address] 02/17/2022 15:19:55 02/17/2022 15:52:24 Urinary symptoms 186053190 R39.9 Here for urinary burning, urgency, and frequency x 2-3 days.Vagin al delivery on 02/04/2022 She is breastfeed ingUA today with leuks and blood, will send for cultureWe discussed treatment based on UA and symptoms.W ill start Cephalexin 500mg, twice daily for 5 days.We discussed cephalexin may be used while breastfeed ing, no known risk of infant harm, though possible risk of diarrhea based on limited human data, no known data available to assess effects on milk production .Patient agrees to these risk. RTC if symptoms persist past treatmentR TC for visit Time spent with the patient was 30 minutes [id number] Blanquita Cage CNM [place] [address],[place] [address] 03/03/2022 11:21:26 03/03/2022 12:47:29 Vaginitis 41714522 N76.0 Nausea 823752733 R11.0 [id number] Blanquita Cage [place] [address],[place] [address] 04/01/2022 14:04:33 04/01/2022 15:11:46 Dyspareunia 96627305 N94.10 [id number] [place]ita [place]age[place] [address],[place] [address] 07/13/2022 14:01:07 07/13/2022 14:41:58 Irregular periods 74913770 N92.6 [id number] Anastasia Clements [place] [address],[place] [address] 09/29/2022 16:03:20 10/03/2022 16:09:17 Dyspareunia 79455538 N94.10 Today I have recommende d the following: consultPel vanessa floor therapyAgr eeable to plan of care. Time spent in visit is a total of 15 mins with at least 50% of visit consisting of counseling and review of plan of care. [id number] Pablito Lakhani MD [place] [address],[place] [address] 10/14/2022 14:46:21 10/14/2022 16:19:59 Dyspareunia 35876960 N94.10 22-year-ol d female presents for painful intercours e. She has pain at the opening of the vagina with introducti on of the penis. It is sharp pain that persists throughout intercours e. And stressed as intercours e since. Examined the patient. 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 It is tender to the touch. It is lengthy. It is 3 cm in length and 4 cm wide at its widest dimension and 2 cm at the base. Talked about treatment. tention on hymen hurts. We agreed to resect in the office. Spent more than 20 minutes with the patient. More than 50% was counseling . [id number] Pablito Lakhani MD [place] [address],[place] [address] 10/28/2022 13:51:00 10/31/2022 16:05:27 Dyspareunia 53917582 N94.10 resection of hymenal remnant was performed without complicati on. [id number] Pablito Lakhani MD [place] [address],[place] [address] 11/01/2022 15:57:59 11/02/2022 11:26:43 Hymenal tag 043905990 N89.8 patient is a 22-year-ol d female who had resection of residual hymen in the office. Was crushed and then sutured. She presents for concern about the healing and a small defect in the area of interest. There is no bleeding at this time. There is a small area that is dimpled at this peer aspect of the incision site. It is all healing well. Is on a normal appearing. There is no evidence of infection. It is tender. She will continue to observe. I will see her in 1 week. [id number] Pablito Lakhani MD [place] [address],[place] [address] 1 11/07/2022 16:08:30 11/07/2022 17:11:59 Hymenal tag 199762089 N89.8 this patient is a 22-year-ol d female presents for follow-up on excision of hymeneal remnant. She has no complaints . She is doing very well. No pain. Was examined. Is intact and looks well looks great. She will follow-up as needed. [id number] KRISTIAN Comer [place] [address],[place] [address] 05/24/2023 09:52:13 05/24/2023 11:13:05 Irregular periods 16900199 N92.6 we agreed to update pelvic u/s for further evaluation discussed switching to combined OCP vs different BC method for better period regulation she is going to consider her optionsSTI testing declinedRT C for pelvic u/s and u/s f/u Time spent in visit is a total of 25 mins with at least 50% of visit consisting of counseling and review of plan of care. Contracept ion care management 786710688 Z30.9 [id number] Nurys Yates [place] [address],[place] [address] 05/25/2023 10:58:19 05/25/2023 11:33:31 Irregular intermenstrual bleeding 94878201 N92.1 [id number] Hemalatha AmayascottKRISTIAN [place] [address] [address] 05/31/2023 11:22:43 05/31/2023 11:51:08 Contraception care management 485893347 Z30.9 Reviewed updated u/s - wnldiscuss ed all BC optionscon tinue slynd vs change to combined OCP vs different methodall methods discusseds he is interested in mirena IUD She has been counseled on all of the r/b/a of placement of an intrauteri ne device that include but are not limited to uterine perforatio n, injury to cervix, vagina, bladder, and bowel.Risk s of bleeding due to injury or increased irregular bleeding due to progestin effect of the device. Risks of infection would be increased within the first 21 days of placement with concommita nt cervicitis . She understand s that the device will need to be removed in this instance due to increased risk of Pelvic inflammato ry disease. Patient is aware she is at higher risk for STD and if contracted she could lose her fertility. Pt is aware that if occurs that she should contact office immediatel y to rule out ectopic which could be life threatenin g. IUD will also need to be removed and this could cause miscarriag e. Patient also informed that in the event her strings are absent or embedded at the time of removal she may need to have the IUD surgically removed.sh e is going to continue slynd for now. If IUD desired call the office with next period and insertion on days 1-5 Time spent in visit is a total of 22 mins with at least 50% of visit consisting of counseling and review of plan of care. Break-thro ugh bleeding 49423432 N92.1 [id number] Pablito Lakhani MD [place] [address],[place] [place] [address] 07/03/2023 15:28:32 07/04/2023 08:57:49 Amenorrhea 26939394 N91.2 22-year-ol d female with 2 months of no menstrual bleeding. She is on slynd. We discussed that medication how it works. Informed that is often the case that there was no menses on this progestero ne only contracept kenton pill. We spent 20 minutes face-to-fa ce. We discussed various aspects of her care. More than 50% of our meeting was counseling . She will follow-up as needed. [id number] [place] [address],[place] [address] 08/24/2023 15:01:45 08/24/2023 17:52:16 Hemorrhagic cyst of ovary 216536113 N83.209 This patient is a 22-year-ol d female with pelvic pain, hemorrhagi c ovarian cyst, and cervical lesion. We have agreed to perform laparoscop ic right ovarian cystectomy and hysterosco py D&C. She understand s the risks, benefits, and alternativ es. She is completed the informed consent process and is ready to proceed. Pain in pelvis 70292166 R10.2 Lesion of cervix 7737882 01 N88.9 [id number] Pablito Lakhani MD [place] [address],[place] [address] 09/06/2023 17:55:55 09/06/2023 18:03:36 [id number] Pablito Lakhani MD [place] [address],[place] [address] 09/08/2023 09:39:11 09/08/2023 10:14:31 Postoperative care 862656837 Z48.89 23-year-ol d female presents for postop follow-up. She is recovering normally. We did a laparoscop ic ovarian cystectomy and hysterosco py D&C. She had the unique nabothian cysts on stalks within the endocervic al canal. She is no complaints . She will follow-up as needed. [id number] Pablito Lakhani MD [place] [address],[place] [address] 09/14/2023 15:50:51 09/14/2023 16:14:41 Contact dermatitis 49918954 L25.9 23-year-ol d female who is 2 weeks postop from a ovarian cystectomy had glue over her incisions. She appears to have a delayed hypersensi tivity to their glue. She has some raised erythemato us patches in the pattern of the glue around her incision sites. We agreed to treat with a higher potency steroid cream. [id number] KRISTIAN Comer [place] [address],[place] [address] 11/24/2023 11:24:07 11/24/2023 11:53:32 Contraception care management 950056531 Z30.9 Discussed all progestero ne BC methods in-depthr/ b/a reviewedwo uld like to switch to the mini-pillr x sentencour aged to take at same time dailydecli sebastien STI screen Discussed all control options in great detail. Pt would like to start POP. She is aware of the risks and benefits. She has contraindi cations to use of OCP or other estrogen containing hormonal therapy. She is aware it is not effective for control the first month. She is also aware of the importance of taking at the same time every day. Encouraged use of condoms as the pill does not protect against STD's. Will return in 3 months for med check. Pt verbalized understand ing. Irregular periods 451411 07 N92.6 [id number] KRISTIAN Comer [place] [address],[place] [address] 01/19/2024 11:38:46 01/19/2024 13:05:19 Pain in pelvis 43226345 R10.2 This patient is a 23 -year-old female with pelvic pain. We have agreed to complete the evaluation with pelvic ultrasound . The patient will return after the pelvic ultrasound to discuss those findings and to develop a treatment plan. A comprehens kenton history and physical exam was performed today. We spent over 25 minutes face-to-fa ce. The patient was given precaution s. She will contact clinic if pelvic pain increases in frequency or intensity. Also notify clinic of any new symptoms associated with pelvic pain. She does not appear to have an acute pelvic infection today, but was asked to contact us Immediatel y with nausea, vomiting, fever, chills. pelvic u/s scheduledd eclined STI screen [id number] Luisa Garcia [place] [address],[place] [address] 01/23/2024 17:00:18 01/24/2024 02:24:52 Pain in pelvis 35961153 R10.2 [id number] Pablito Lakhani MD [place] [address],[place] [address] 04/01/2024 16:02:45 04/02/2024 22:24:36 [id number] Pablito Lakhani MD [place] [address],[place] [address] 04/04/2024 10:55:28 04/04/2024 12:12:47 Mucous retention cyst of cervix uteri 252505569 N88.8 23-year-ol d female was concern about a cervical cyst. She could palpate a cervical cyst. She said it was smaller than previous days. She was examined. There was a small nabothian cyst in the area that she described. This was observed on speculum exam. We discussed nabothian cyst. We discussed the etiology, natural history, treatment of problem nabothian cysts. She will follow-up as needed. Spent over 20 minutes on her care. [id number] Pablito Lakhani MD [place] [address],[place] [address] 07/13/2024 10:17:23 07/13/2024 11:04:26 Urinary symptoms 414040729 R39.9 Pain in pelvis 44049242 R10.2 Vulvovaginitis 20477606 N76.0 23-year-ol d female who presents for vulvar irritation and pelvic pain. She has intense vulvar irritation . Claims to see some small pinpoint irregulari ties in the skin at the introitus. The vulva is burning. She had sex with a condom 2 days before this irritation started. She does have a latex allergy. Examinatio n reveals widespread erythema over the introitus and medial vulva. No focal lesions. Swab was obtained. She is being treated for yeast already. To add a antifungal /steroid cream. Patient is recurrent pelvic pain. Known to have ovarian cyst. We are going to obtain pelvic ultrasound to evaluate the pelvic pain. Bimanual exam was benign. Spent over 30 minutes on the patient's care. Discussed in detail to complex topics. Hypersensi tivity reaction of vulva, pelvic pain and ovarian cyst. I discussed etiology, natural, treatment of pelvic pain. We have previously perform surgery on her for ovarian cyst. [id number] [facility] [address],[place] [address] 07/26/2024 11:25:14 07/26/2024 11:49:05 screening 237240554 Z36.87 Z3A.01 [id number] Nurys [facility] [address],[place] [address] 08/02/2024 10:58:26 08/02/2024 11:37:31 screening 890014016 Z36.87 O36.80X0 Z3A.01 [id number] [facility] [address],[place] [address] 08/13/2024 11:36:08 08/13/2024 12:22:05 Retained products of conception following induced termination of 490607099 O04.89 Z3A.01 [id number] Pablito Lakhani MD [place] [address],[place] [address] 08/13/2024 12:39:21 08/14/2024 09:10:45 Incomplete miscarriage 911332313 O03.4 23-year-ol d female with incomplete . She had an elective terminatio n. She was given medication . She continues to have bleeding. She had an ultrasound . There is some possible retained products conception . There was some areas of the endometriu m with with debris clot and areas with blood flow. We discussed treatment options. We discussed D&C. We agreed to repeat ultrasound in 3 days. Consider suction D&C. In the interim we are going to treat with Cytotec. We discussed the medication . I prescribed the medication . She was given instructio ns and precaution s. We discussed the risks, benefits, and alternativ es. We discussed what to Do in the event of heavy vaginal bleeding. [id number] Luisa Garcia [place] [address],[place] [address] 08/16/2024 08:51:16 08/16/2024 10:01:33 Retained products of conception following induced termination of 834971117 O04.89 Z3A.01 [id number] [place] [address],[place] [address] 08/16/2024 09:10:42 08/16/2024 10:35:01 Retained products of conception 842291954 O72.2 23-year-ol d female with incomplete miscarriag e. We have agreed to perform suction D&C. She understand s the risks, benefits, and alternativ es. She has completed the informed consent process and is ready to proceed. [id number] Pablito Lakhani MD [place] [address],[place] [address] 2024 09:45:55 2024 10:44:07 Incomplete miscarriage 598479658 O03.4 this patient presents for postop follow-up. She is 1 week postop from a suction D&C. She is recovering normally. Her bleeding is minimal. She has no foul-smell ing vaginal discharge. She denies any nausea, vomiting, fever, chills. We discussed contracept ion. We discussed future . She will follow up for a repeat test. To have Mirena placed [id number] Xiao Oates [place] [address],[place] [address] 09/05/2024 13:58:33 09/06/2024 10:14:55 Missed miscarriage 98959933 O02.1 [id number] Pablito Lakhani MD [place] [address],[place] [address] 11/06/2024 15:52:00 11/06/2024 16:50:17 Vulvovaginitis 88694595 N76.0 Dyspareunia 33549589 N94 .10 24-year-ol d female with pain with intercours e. The pain is at the introitus of the vagina. There is fine sharp areas of pain. She believes they are small cuts there. She also has white vaginal discharge and vulvar irritation . She is examined. There is erythema around the introitus and medial labia minora. Mucosa is intact. Patient reports the she vaginal pain started with a progestero ne only control. We agreed to treat with vaginal estrogen. She is given samples of vaginal estrogen inserts. She is given precaution s, instructio ns. We talked about risks, benefits, and alternativ es. We also talked about yeast infection. We agreed to treat for yeast infection. Swabs were taken at the time of the exam. We talked about the risks, benefits, and alternativ es to the treatment for the yeast infection. Talked about precaution s and instructio ns. Health Concerns Section Related Observation LastModified by Organization Detai ls LastModified Time None Recorded Concern Status LastModified by Organization Details LastModified Time None Recorded Advance Directives Directive None Recorded Payers Encounter Date Sequence Insurance Name Policy Number Policy Bernal Covered Member ID Bernal Member ID Guarantor Name 08/16/2024 1 [facility] Andrea Sharon [id number] Erendira Sharon 08/16/2024 1 [facility] Andrea Sharon [id number] Erendira Sharon 2024 1 [facility] Andrea Sharon [id number] Erendira Sharon 09/05/2024 1 [facility] Andrea Sharon [id number] Erendira Sharon 11/06/2024 1 [facility] Andrea Sharon [id number] [facility] Notes Date Note Type Note Provider Name and Address Organization Details Recorded Time 08/16/2024 text/html 23-year-old fema le with retained products conception after an incomplete miscarriage. We have agreed to perform suction D&C. The patient understands the procedure. The procedure was described to the patient in great detail. the patient also understands the risks. The risks were also explained in detail. She understands that injuries May occur during surgery. She understands these injuries can result in hospitalization, more surgery, and severe illness. She understands there is risk of hemorrhage and infection. Pablito Lakhani MD [address], [place], [address], [facility] 08/16/2024 10:17:02 2024 text/html this patient presents for postop follow-up. She is 1 week postop from a suction D&C. She is recovering normally. Her bleeding is minimal. She has no foul-smelling vaginal discharge. She denies any nausea, vomiting, fever, chills. We discussed contraception. We discussed future . She will follow up for a repeat test. To have Mirena placed Pablito Lakhani MD [address], [place], [address], [facility] 2024 10:36:09 11/06/2024 text/html 24-year-old fema le with pain with intercourse. The pain is at the introitus of the vagina. There is fine sharp areas of pain. She believes they are small cuts there. She also has white vaginal discharge and vulvar irritation. She is examined. There is erythema around the introitus and medial labia minora. Mucosa is intact. Patient reports the she vaginal pain started with a progesterone only control. We agreed to treat with vaginal estrogen. She is given samples of vaginal estrogen inserts. She is given precautions, instructions. We talked about risks, benefits, and alternatives. We also talked about yeast infection. We agreed to treat for yeast infection. Swabs were taken at the time of the exam. We talked about the risks, benefits, and alternatives to the treatment for the yeast infection. Talked about precautions and instructions. Pablito Lakhani MD [address], [place], [address], [facility] 11/06/2024 16:47:31 OBGyn Episode Ob Episode Information Episode Created Date Number of Fetuses Patient Bloodtype Patient rh Status Prepregnancy Weight lbs Domestic Partner Domestic Partner Phone Father Name [employer] Status 08/03/20 21 1 A Positive 180 CLOSED Fetus Data First Name Last Name Admitted to NICU Weight (g) Sex Living Outcome Pediatric Complications Fetus ID Race Codes Race Delivery Type 3090.09 56 F true Full Term terminal meconium & cord around body 1x [id number] Vaginal Delivery Problems Problem Notes M - 12/03 1115 u.s only emperatriz wth & complete anatomy. Rpt u/s with MFM on 12/31/21plans cushion stuffer delivery Problem Name Start Date End Date Resolution Snomed Code Not e Rubella non-immune [id number] M MR PP ultrasound scan abnormal [id number] probably club feet Fracture of lumbar spine 304067783 L5 3 years ago, went through PT Anxiety in 07/09/2021 [id number] zoloft to start 08/31. EPDS 10 11/01 Toro Calculation Initial Toro Date Initial Exam Date Initial Exam Provider Initial Ultrasound Date Last Menstrual Period Date Ultra Sound Weeks Gestation 02/10/2022 08/03/2021 07/09/2021 05/13/2021 9 Eighteen To Twenty Week Toro Update Ultra Sound Date Fundal Height At Umbil Quickening Date Ultra Sound Latest Weeks Gestation Final Toro Confirmed By Final Toro Confirmed Date Final Toro Date Ultra Sound Latest Days Gestation 0 [id number] 08/03/2021 02/11/20 22 0 Pre-juwan Flowsheet Flowsheet Date 08/03/2021 Caceres Score Blood Edema Fundus Height Fundus Units Glucose Ketones Leukocytes Nitrite Labor Signs Protein Cervic Dilation Cervic Effacement Cervic Station neg none trace Type Weight in lbs Pre/Post Dialysis Refused Weight 179.767749146757 BP Diastolic BP Location Tested BP Systolic BP Type 67 104 Fetus Heart Rate Present A 155 Fetus Movement A No Comments Erendira is a 20yo G1 at 12.6 for care. She is doing labs and NIPT today. normal NT. Flu shot done, will do second COVID vaccine. Some days with nausea. Always cold- will check TSH. Anxiety ok currently. Flowsheet Date 08/31/2021 Caceres Score Blood Edema Fundus Height Fundus Units Glucose Ketones Leukocytes Nitrite Labor Signs Protein Cervic Dilation Cervic Effacement Cervic Station neg trace none trace Type Weight in lbs Pre/Post Dialysis Refused Weight 179.407248267248 BP Diastolic BP Location Tested BP Systolic BP Type 72 112 Fetus Heart Rate Present A 160 Fetus Movement A Yes Comments Not feeling great. GERD and constipation and nausea. Discussed OTCs. Down to 3 sodas daily from 12. Encouraged one only. AFP today, declines CF/SMA. Will do second COVID vaccine. Anxiety worsening. Thinks she needs to start something. Discussed RBA, zoloft sent. Flowsheet Date 09/29/2021 Caceres Score Blood Edema Fundus Height Fundus Units Glucose Ketones Leukocytes Nitrite Labor Signs Protein Cervic Dilation Cervic Effacement Cervic Station Type Weight in lbs Pre/Post Dialysis Refused BP Diastolic BP Location Tested BP Systolic BP Type Fetus Heart Rate Present Fetus Movement Comments Flowsheet Date 09/29/2021 Caceres Score Blood Edema Fundus Height Fundus Units Glucose Ketones Leukocytes Nitrite Labor Signs Protein Cervic Dilation Cervic Effacement Cervic Station neg trace 22 none trace Type Weight in lbs Pre/Post Dialysis Refused Weight 183.312701085989 BP Diastolic BP Location Tested BP Systolic BP Type 73 109 Fetus Heart Rate Present A 150 Fetus Movement A Yes Comments Doing ok. Anxiety much luis r on zoloft. Back pain is still bad- would like to try PT- will get referral placed. Will do second covid vaccine. Treating constiaption. Antaomy US today complete and wnl except suspect club foot/feet. Uncertain due to baby moving feet constantly. Will get MFM US. Flowsheet Date 10/20/2021 Caceres Score Blood Edema Fundus Height Fundus Units Glucose Ketones Leukocytes Nitrite Labor Signs Protein Cervic Dilation Cervic Effacement Cervic Station none trace Type Weight in lbs Pre/Post Dialysis Refused Weight 187.580061991720 BP Diastolic BP Location Tested BP Systolic BP Type 73 112 Fetus Heart Rate Present A 147 Fetus Movement A Yes Comments Here with concerns for UTI. Increased bladder pressure and frequency. Abdomen soft. SP tenderness on exam. No cva tenderness. Pt does not think she is having contractions. Will check cervical length. Increase water and start macrobid. Flowsheet Date 10/20/2021 Caceres Score Blood Edema Fundus Height Fundus Units Glucose Ketones Leukocytes Nitrite Labor Signs Protein Cervic Dilation Cervic Effacement Cervic Station Type Weight in lbs Pre/Post Dialysis Refused BP Diastolic BP Location Tested BP Systolic BP Type Fetus Heart Rate Present Fetus Movement Comments Flowsheet Date 10/29/2021 Caceres Score Blood Edema Fundus Height Fundus Units Glucose Ketones Leukocytes Nitrite Labor Signs Protein Cervic Dilation Cervic Effacement Cervic Station 30 Type Weight in lbs Pre/Post Dialysis Refused Weight 190.580351007726 BP Diastolic BP Location Tested BP Systolic BP Type 79 R arm 125 sitting Fetus Heart Rate Present A 138 Fetus Movement A Yes Comments size much larger than dates, has MFM ultrasound next week. Anxiety much improved with addition of Zoloft. Flowsheet Date 11/22/2021 Caceres Score Blood Edema Fundus Height Fundus Units Glucose Ketones Leukocytes Nitrite Labor Signs Protein Cervic Dilation Cervic Effacement Cervic Station none 29 none trace Type Weight in lbs Pre/Post Dialysis Refused Weight 193.83559395195 BP Diastolic BP Location Tested BP Systolic BP Type 78 123 Fetus Heart Rate Present A 137 Fetus Movement A Yes Comments Doing well. 1 hour gtt today . Encouraged tdap. Desires IV pain medication over epidural. Encouraged to start looking for pedi. Pt has asked me to do her delivery if I am available. Flowsheet Date 12/08/2021 Caceres Score Blood Edema Fundus Height Fundus Units Glucose Ketones Leukocytes Nitrite Labor Signs Protein Cervic Dilation Cervic Effacement Cervic Station neg none 30 trace Type Weight in lbs Pre/Post Dialysis Refused Weight 196.341326732078 BP Diastolic BP Location Tested BP Systolic BP Type 78 124 Fetus Heart Rate Present A 140 Fetus Movement A Yes Comments PATIENT IS HAVING TROUBLE SL EEPING AND HAVE SOME BH CONTRACTIONS. karynien prn #10 given discussed se risks, unisom and benadryl not helping, not getting quality of sleep and affecting bs, discussed hypoglycemia check hga1c discussed snacks inbetween meals and increased protein and hydration, f/u 2 weeks nst/bpp/growth Flowsheet Date 12/24/2021 Caceres Score Blood Edema Fundus Height Fundus Units Glucose Ketones Leukocytes Nitrite Labor Signs Protein Cervic Dilation Cervic Effacement Cervic Station trace trace trace Type Weight in lbs Pre/Post Dialysis Refused Weight 198.175525475320 BP Diastolic BP Location Tested BP Systolic BP Type 72 107 Fetus Heart Rate Present A 145 Fetus Movement A Yes Comments PATIENT STATES SHE IS HAVING SWELLING AND CONTRACTIONS/CRAMPING, precautions reviewed, 24 hr urine supplies, f/u 2 weekshas mfm appt next week Flowsheet Date 01/12/2022 Caceres Score Blood Edema Fundus Height Fundus Units Glucose Ketones Leukocytes Nitrite Labor Signs Protein Cervic Dilation Cervic Effacement Cervic Station neg trace trace Type Weight in lbs Pre/Post Dialysis Refused Weight 206.662964413429 BP Diastolic BP Location Tested BP Systolic BP Type 77 121 Fetus Heart Rate Present Fetus Movement A Yes Comments PATIENT IS HAVING SOME PAIN, BH CONTRACTIONS, AND SWELLING. doing well, discussed diff sleeping positions, gbs done, precautions reviewed Flowsheet Date 01/19/2022 Caceres Score Blood Edema Fundus Height Fundus Units Glucose Ketones Leukocytes Nitrite Labor Signs Protein Cervic Dilation Cervic Effacement Cervic Station neg trace 35 none trace 1cm 60% -2 Type Weight in lbs Pre/Post Dialysis Refused Weight 207.324720709336 BP Diastolic BP Location Tested BP Systolic BP Type 86 122 Fetus Heart Rate Present A 140 Fetus Movement A Yes Comments PATIENT STATES THAT NOT SLEE PING, SWELLING, BACK PAIN, HIP PAIN, AND CONTRACTIONS. doing well, precautions reviewed, refill ambien Flowsheet Date 01/24/2022 Caceres Score Blood Edema Fundus Height Fundus Units Glucose Ketones Leukocytes Nitrite Labor Signs Protein Cervic Dilation Cervic Effacement Cervic Station neg trace 40 none trace 1cm 40% -3 Type Weight in lbs Pre/Post Dialysis Refused Weight 207.808477652543 BP Diastolic BP Location Tested BP Systolic BP Type 81 123 Fetus Heart Rate Present A 150 Fetus Movement A Yes Comments Doing well except a lot of c ontractions. Were q 4 for 30 min, precautions reiterated. GBS neg. Flowsheet Date 01/28/2022 Caceres Score Blood Edema Fundus Height Fundus Units Glucose Ketones Leukocytes Nitrite Labor Signs Protein Cervic Dilation Cervic Effacement Cervic Station Type Weight in lbs Pre/Post Dialysis Refused BP Diastolic BP Location Tested BP Systolic BP Type Fetus Heart Rate Present Fetus Movement Comments Flowsheet Date 02/02/2022 Caceres Score Blood Edema Fundus Height Fundus Units Glucose Ketones Leukocytes Nitrite Labor Signs Protein Cervic Dilation Cervic Effacement Cervic Station neg trace 38 none trace Type Weight in lbs Pre/Post Dialysis Refused Weight 212.47268257357 BP Diastolic BP Location Tested BP Systolic BP Type 81 126 Fetus Heart Rate Present A 144 Fetus Movement A Yes Comments patient is having pain, cont ractions, and swelling. precautions reviewed would like EIOL at 39 weeks reviewed increased risk of , plan for 39 week cervadil Flowsheet Date 02/17/2022 Caceres Score Blood Edema Fundus Height Fundus Units Glucose Ketones Leukocytes Nitrite Labor Signs Protein Cervic Dilation Cervic Effacement Cervic Station Type Weight in lbs Pre/Post Dialysis Refused Weight 212.73682743357 BP Diastolic BP Location Tested BP Systolic BP Type 84 124 Fetus Heart Rate Present Fetus Movement Comments Flowsheet Date 02/17/2022 Caceres Score Blood Edema Fundus Height Fundus Units Glucose Ketones Leukocytes Nitrite Labor Signs Protein Cervic Dilation Cervic Effacement Cervic Station Type Weight in lbs Pre/Post Dialysis Refused BP Diastolic BP Location Tested BP Systolic BP Type Fetus Heart Rate Present Fetus Movement Comments Menstrual History Last Menstrual Date Menses Monthly On Bcp Conception Prior Menses Frequency Hcg Plus Date Menarche Onset Age 0805/13/2021 Genetic Screening And Infection History Question Response Note Mental Retardation/Autism false Patient's Age Will Be 35 Years Or Older At Estim ated Date of Delivery false Thalassemia (Scottish, Greenlandic, Mediterranean, Or Background): MCV < 80 false Neural Tube Defect (Meningomyelocele, Spina Bifi da, Or Anencephaly) false Congenital Heart Defect false Down Syndrome false Solis-Sachs (eg, Islam, Cajun, Nepalese-Bermudian) f alse Foreign Disease false Sickle Cell Disease Or Trait () false Hemophilia Or Other Blood Disorders false Muscular Dystrophy false Cystic Fibrosis false Kerr's Chorea false Intellectual Disability/Autism false If Yes, Was Person Tested For Fragile X? false Other Inherited Genetic Or Chromosomal Disorder false Maternal Metabolic Disorder (eg, Type 1 Diabetes , PKU) false Patient Or Baby's Father Had A Child With Defects Not Listed Above false Recurrent Loss, Or A Stillbirth false Medications (including Suppl ements, Vitamins, Herbs, OTC Drugs), Illicit/Recreational Drugs, Alcohol false If Yes, Agent(s) And Strength/Dosage false Any Other Genetic History false Live With Someone With TB Or Exposed To TB false Patient Or Partner Has History Of Genital Herpes false Rash Or Viral Illness Since Last Menstrual Perio d false History Of STD, Gonorrhea, Chlamydia, HPV, Syphi lis false Other Infection History false History of HIV false History of Hepatitis false Prior GBS-infected child false Hemoglobinopathy Or Carrier false Other Structural Defect false Recent Travel History Outside of Country false Delivery Information Delivery Date Delivery Type Labor Anesthesia Weeks Gestation Incision Type Labor Labor Length Hrs Delivered By Post Complications Tubal Sterilization Discharge Date Comments 2 Induce d Regional-Ep idural 39.1 false Blanquita Cage CNM Discharge Information Feeding Method Contraceptive Method Maternal HG B and HCT Levels Ob Episode Information Episode Created Date Number of Fetuses Patient Bloodtype Patient rh Status Prepregnancy Weight lbs Domestic Partner Domestic Partner Phone Father Name [employer] Integrator Status 08/16/20 24 1 CLOSED Fetus Data First Name Last Name Admitted to NICU Weight (g) Sex Living Outcome Pediatric Complications Fetus ID Race Codes Race Delivery Type , [place] ous [id number] Toro Calculation Initial Toro Date Initial Exam Date Initial Exam Provider Initial Ultrasound Date Last Menstrual Period Date Ultra Sound Weeks Gestation 0 Eighteen To Twenty Week Toro Update Ultra Sound Date Fundal Height At Umbil Quickening Date Ultra Sound Latest Weeks Gestation Final Toro Confirmed By Final Toro Confirmed Date Final Toro Date Ultra Sound Latest Days Gestation 0 0 Menstrual History Last Menstrual Date Menses Monthly On Bcp Conception Prior Menses Frequency Hcg Plus Date Menarche Onset Age Delivery Information Delivery Date Delivery Type Labor Anesthesia Weeks Gestation Incision Type Labor Labor Length Hrs Delivered By Post Complications Tubal Sterilization Discharge Date Comments 4 Discharge Information Feeding Method Contraceptive Method Maternal HG B and HCT Levels Ob Episode Information Episode Created Date Number of Fetuses Patient Bloodtype Patient rh Status Prepregnancy Weight lbs Domestic Partner Domestic Partner Phone Father Name [employer] Integrator Status 11/24/19 24 1 DELETED Toro Calculation Initial Toro Date Initial Exam Date Initial Exam Provider Initial Ultrasound Date Last Menstrual Period Date Ultra Sound Weeks Gestation 0 Eighteen To Twenty Week Toro Update Ultra Sound Date Fundal Height At Umbil Quickening Date Ultra Sound Latest Weeks Gestation Final Toro Confirmed By Final Toro Confirmed Date Final Toro Date Ultra Sound Latest Days Gestation 0 0 Menstrual History Last Menstrual Date Menses Monthly On Bcp Conception Prior Menses Frequency Hcg Plus Date Menarche Onset Age Delivery Information Delivery Date Delivery Type Labor Anesthesia Weeks Gestation Incision Type Labor Labor Length Hrs Delivered By Post Complications Tubal Sterilization Discharge Date Comments 3 Discharge Information Feeding Method Contraceptive Method Maternal HG B and HCT Levels
--- OUTSIDE RECORDS SUMMARY | 2024-12-07 11:58 | XMS_ITS | Data Portability ---
Author Organization [place] - [facility], Main Office Address [address] [place] [address] Care Team Providers Care Day Care Supervisor Name Role Phone HANSEL GANNON Primary Care Provider [phone] Assessment Encounter Date Assessment Date Assessment LastModified by Organization Details LastModified Time 04/22/2024 04/22/2024 D/w pt about her findings and further plan of care. Explained pt about different options for pt. Meds as directed. Advised pt to f/u with Ophtho if any vision concerns Or Annually. Educated pt about alarming symptoms to monitor at home and call us back or get checked in ED. Cont f/u with specialist at [facility] as directed. F/u in 1 month. [email or web address] Not available 04/22/2024 12:52:24 10/02/2024 10/02/2024 D/w pt about her findings and further plan of care. Explained pt about different options for pt. Meds as directed. Educated pt about alarming symptoms to monitor at home and call us back or get checked in ED. Cont f/u with Neuro at [facility] as directed. Cont f/u with Ophtho as per schedule. F/u in 1 month for Annual exam. [email or web address] Not available 10/02/2024 14:38:43 10/14/2024 10/14/2024 24 yo F with - WELL ADULT VISIT - MIGRAINE - FIBROMYALGIA - B/L TONSILAR HYPERTROPHY, chronic - SNORING - OBESITY I - FH OF MIGRAINE D/w pt about her findings, recent labs & imagines and further plan of care. Will do routine labs. Meds as directed. Diet and exercise explained in detail. Educated about different options for her. Safe sex education given. [facility]. Cont f/u with Ophtho as per schedule. Offered to refer to ENT/sleep study; but pt declined. Wegovy is not covered with her insurance. HM: WWE - 07/18, normal as per pt. Cont f/u with Gyne as per schedule. Flu, Tdap, Gardasil - At pharmacy/HD. F/u in 2-3 weeks. Annual labs in 10/20. [email or web address] Not available 10/14/2024 12:14:13 10/24/2024 10/24/2024 24 yo F with - VIT D DEFICIENCY - MIGRAINE - FIBROMYALGIA - B/L TONSILAR HYPERTROPHY, chronic - SNORING - OBESITY I - FH OF MIGRAINE Annual labs: 10/15/24. Wt: 185(10/24/24) D/w pt about her findings, recent labs & imagines and further plan of care. Meds as directed. Diet and exercise explained in detail. Educated about different options for her. Safe sex education given. [facility] f[facility] as [facility] schedule. Cont f/u with specialist at [facility] as per schedule. Cont f/u with Ophtho as per schedule. Offered to refer to ENT/sleep study; but pt declined. Wegovy is not covered with her insurance. HM: WWE - 07/18, normal as per pt. Cont f/u with Gyne as per schedule. Flu - 07/18. Tdap, Gardasil - At pharmacy/HD. F/u in 2 months. Annual labs in 10/20. [email or web address] Not available 10/24/2024 14:14:43 Plan of Treatment Reminders Order Date Submit Date Provider Last Modified By Organization Details Last Modified Time Details Appointments Follow Up 15 2024 10:30A M Hansel Gannon MD Not available Not available Not available Lab magnesium , serum or plasma 2024 025 [email or web address] [facility], [address], [address], [place], [address], 10/24/2024 15:03:29 HbA1c (hemoglob in A1c), blood 2024 025 [facility], [address], [place], [address], 10/24/2024 15:03:29 vitamin D, 25-hydrox y, total, serum 2024 [email or web address] [address] [facility], [address], [place], [address], 10/24/2024 15:03:28 cobalamin and folate panel, serum 2024 [email or web address] [address] [facility], [address], [place], [address], 10/24/2024 15:03:29 CBC w/ auto diff 2024 [email or web address] [address] [facility], [address], [place], [address], 10/24/2024 15:03:27 CMP, serum or plasma 2024 [place] [address] [facility], [address], [place], [address], 10/24/2024 15:03:28 lipid panel, serum 2024 [email or web address] [address] [facility], [address], [place], [address], 10/24/2024 15:03:28 TSH, serum, reflex free T4 2024 [place] [address] [facility], [address], [place], [address], 10/24/2024 15:03:28 urinalysi s complete, reflex culture 2024 [email or web address] [address] [facility], [address], [place], [address], 10/24/2024 15:03:28 Referral None recorded. Procedures None recorded. Surgeries None recorded. Imaging None recorded. Medication Orders Zepbound 2.5 mg/0.5 mL subcutane ous pen injector 2024 025 [id number], [address], [place], [place], [id number], 10/24/2024 14:11:12 phentermi ne 15 mg capsule 2024 025 [facility] #54726, [address], [place], [place], [id number], 10/24/2024 14:11:19 ergocalci ferol (vitamin D2) 1,250 mcg (50,000 unit) capsule 2024 025 [facility] #03327, [address], [place], [place], [id number], 10/24/2024 14:11:13 Wegovy 0.25 mg/0.5 mL subcutane ous pen injector 2024 025 [facility] #28850, [address] [facility], [place], [place], [id number], 10/24/2024 14:15:06 ondansetr on HCl 4 mg tablet 2023 025 [facility] #10484, [address], [place], [place], [id number], 10/02/2024 14:31:14 sumatript an 100 mg tablet 2023 025 [facility] #59097, [address] [facility], [place], [place], [id number], 10/02/2024 14:31:12 topiramat e 25 mg tablet 2023 025 [facility] #24949, [address], [place], [place], [id number], 10/02/2024 14:31:13 Nurtec ODT 75 mg disintegr ating tablet 2023 [facility] #38138, [address], [place], [place], [id number], 10/02/2024 14:31:11 ondansetr on HCl 4 mg tablet 2023 [facility] #74275, [address], [place], [place], [id number], 04/22/2024 12:25:40 sumatript an 100 mg tablet 2023 [email or web address] [facility] #48099, [address], [place], [place], [id number], 04/22/2024 12:55:43 topiramat e 25 mg tablet 2023 [facility] #92573, [address], [place], [place], [id number], 04/22/2024 12:24:59 Nurtec ODT 75 mg disintegr ating tablet 2023 [facility] #18025, [address], [place], [place], [id number], 04/22/2024 12:52:05 Patient TargetsNo targets recorded. Patient Instructions Encounter Date Encounter Id Patient Instructions Last Modified By Organization Details Last Modified Time 04/22/2024 [id number] starting a weigh t loss plan: care instructions [email or web address] Not available 04/22/2024 12:18:24 learning about obesity [email or web address] Not available 04/22/2024 12:18:24 10/02/2024 [id number] starting a weigh t loss plan: care instructions Not available 10/02/2024 14:31:06 learning about obesity [email or web address] Not available 10/02/2024 14:31:06 10/14/2024 [id number] starting a weigh t loss plan: care instructions [email or web address] Not available 10/14/2024 12:01:43 learning about obesity Not available 10/14/2024 12:01:43 10/24/2024 [id number] starting a weigh t loss plan: care instructions [email or web address] Not available 10/24/2024 14:11:02 learning about obesity Not available 10/24/2024 14:11:02 Reason for Referral None Reported. Results Created Date Observation Date Name Description Value Unit Range Abnormal Flag Note LastModifiedBy Organization Detail LastModifiedTime 08/21/2008/21/2023 US, trans vagin al No observ ation record ed. [address], [place], [address], 08/22/2023 16:17:27 09/20/20 23 09/20/2023 CT, abdom en + pelvi s, w/ contr ast No observ ation record ed. [address], [place], [address], 09/21/2023 10:49:23 09/20/20 23 09/20/2023 XR, hip + pelvi s, unila teral No observ ation record ed. [address], [place], [address], 09/21/2023 10:50:25 Result Notes None recorded. Problems Name Problem SNOMED Code Status Onset Date Resolution Date Notes Provider Name and Address Organization Details Recorded Time Heartburn 75523247 Active 2021 Not Available [facility] 3 10:44:31 Asthma 733220216 Active 2021 Not Available [facility] 3 10:44:31 Fibromyalgia 092377432 Active 2021 Not Available [facility] 3 10:44:32 Anxiety 29108659 Active 2021 Not Available [facility] 3 10:44:32 Low back pain 946224043 Active 2022 Anneliese Malik NP [address], [address], [place], [address] , [facility] 3 15:00:51 Small fiber neuropathy 296831201 Active 2022 Anneliese Malik NP [address], [address], [place], [address] , [facility] 3 15:05:07 COVID-19 014857681 Active 2023 Hansel Gannon MD [address], [address], [place], [address] , [facility] 4 12:29:05 Obesity 225237951 Active 2023 Hansel Gannon MD [address], [address], [place], [address] , [facility] 4 12:09:31 Migraine with aura 7742964 Active 2023 Hansel Gannon MD [address], [address], [place], [address] , [facility] 4 12:18:44 Nausea 833516233 Active 2023 Hansel Gannon MD [address], [address], [place], [address] , [facility] 4 12:24:58 Vitamin D deficiency 05916887 Active 2024 Hansel Gannon MD [address], [address], [place], [address] , [facility] 5 14:08:20 Problem Notes None recorded. Procedures Surgical History Date Name Laterality Status Provider Name and Address Organization Details Recorded Time 10/28/2022 Date of Last Pap Smear completed Anneliese Schmidt RN [email or web address] 12/20/2022 14:44:07 Imaging Results Imaging Date Name Status LastModified by Organization Details LastModified Time 08/21/2023 US, transvaginal completed [address], [place], [address], 08/22/2023 16:17:27 09/20/2023 CT, abdomen + pelvis, w/ contrast completed [address], [place], [address], 09/21/2023 10:49:23 09/20/2023 XR, hip + pelvis, unilateral completed [address], [place], [address], 09/21/2023 10:50:25 Procedure Notes None recorded. Medical Equipment None Reported. Allergies Allergen ID Allergen Name Allergen Category Reaction Reaction Severity Criticality Documentation Date Start Date Code Code System Note Provider Name and Address Organization Details Recorded Time 12106 Benadryl medicatio n itching swelling mild mild low 10/02/2024202445 7 RxNorm swell ing is to throa t, but told mild react ion Nohemi Gregorio RN null, [place] [facility] 14:19:35 Medications Name Sig Start Date Stop Date Status Note LastModified by Organization Details LastModified Time amoxicillin 500 mg capsule 01/15 completed Not Available Not Available Not Available doxycycline hyclate 100 mg capsule 12/20 completed Not Available Not Available Not Available triamcinolo ne acetonide 0.5 % topical cream 04/22 completed Not Available Not Available Not Available azithromyci n 250 mg tablet 01/15 completed Not Available Not Available Not Available fluconazole 150 mg tablet active Not Available Not Available Not Available benzonatate 200 mg capsule Take 1 capsule every 8 hours by oral route as needed for 7 days. 01/15 completed Not Available Not Available Not Available sumatriptan 100 mg tablet Take 1 tablet as needed by oral route as directed for 30 days. active Not Available Not Available No t Available metronidazo le 0.75 % (37.5 mg/5 gram) vaginal gel active Not Available Not Available Not Available ondansetron HCl 4 mg tablet Take 1 tablet every 6-8 hours by oral route as needed for 5 days. 2024 active Not Available Not Available Not Avai lable prednisone 20 mg tablet 01/15 completed Not Available Not Available Not Available phentermine 15 mg capsule Take 1 capsule every day by oral route in the morning for 30 days. active Not Available Not Available No t Available topiramate 25 mg tablet Take 1 tablet twice a day by oral route as directed for 30 days. active Not Available Not Available No t Available oxycodone-a cetaminophe n 5 mg-325 mg tablet 01/15 completed Not Available Not Available Not Available amoxicillin 875 mg tablet 12/20 completed Not Available Not Available Not Available cephalexin 500 mg capsule 12/20 completed Not Available Not Available Not Available triamcinolo ne acetonide 0.1 % topical ointment 12/20 completed Not Available Not Available Not Available nystatin 100,000 unit/gram topical cream 12/20 completed Not Available Not Available Not Available clotrimazol e-betametha sone 1 %-0.05 % topical cream active Not Available Not Available Not Available misoprostol 200 mcg tablet 10/02 completed Not Available Not Available Not Available polymyxin B sulfate 10,000 unit-trimet hoprim 1 mg/mL eye drops 12/20 completed Not Available Not Available Not Available zolpidem 5 mg tablet 12/20 completed Not Available Not Available Not Available ergocalcife rol (vitamin D2) 1,250 mcg (50,000 unit) capsule Take 1 capsule every week by oral route as directed. active Not Available Not Available No t Available estradiol 0.01% (0.1 mg/gram) vaginal cream 12/20 completed Not Available Not Available Not Available albuterol sulfate HFA 90 mcg/actuati on aerosol inhaler Inhale 2 puffs every 4 hours by inhalatio n route. active Not Available Not Available No t Available norethindro ne (contracept kenton) 0.35 mg tablet 04/22 completed Not Available Not Available Not Available sertraline 50 mg tablet 12/20 completed Not Available Not Available Not Available metoclopram cielo 10 mg tablet 12/20 completed Not Available Not Available Not Available nitrofurant oin monohydrate /macrocryst als 100 mg capsule 12/20 completed Not Available Not Available Not Available duloxetine 20 mg capsule,del ayed release TAKE 1 CAPSULE BY MOUTH TWICE DAILY 10/02 completed Not Available Not Available Not Available 12/20 completed Not Available Not Available Not Available Melva 30 mg tablet 04/22 completed Not Available Not Available Not Available Slynd 4 mg (28) tablet 1 tab po daily 04/22 completed Not Available Not Available Not Available [facility] ODT 75 mg disintegrat ing tablet Take 1 tablet every other day by oral route as directed for 30 days. 2024 active Not Available Not Available Not Avai lable BinaxNOW COVID-19 Ag Self Test kit 01/15 completed Not Available Not Available Not Available Wegovy 0.25 mg/0.5 mL subcutaneou s pen injector Inject 0.25 mg every week by subcutane ous route as directed for 30 days. 10/24 completed Not Available Not Available Not Available Paxlovid 300 mg (150 mg x 2)-100 mg tablets in a dose pack Take 1 dose pk twice a day by oral route as directed for 5 days. 01/15 completed Not Available Not Available Not Available Zepbound 2.5 mg/0.5 mL subcutaneou s pen injector ADMINISTE R 2.5 MG UNDER THE SKIN EVERY WEEK DIRECTED active Not Available Not Available No t Available Vitals Date Recorded Body height Body mass index (BMI) Body weight Body temperature Heart rate Respiratory rate Oxygen saturation Oxygen saturation in Arterial blood by Pulse oximetry Systolic blood pressure Diastolic blood pressure Provider Name and Address Organization Details Last Updated DateTime 4 160.02 cm 35.1 kg/m2 60384.0 1 g 98 [degF] 62 /min 16 /min 99 % 99 % 116 mm[Hg] 66 mm[Hg] Willie JIN MS [employer] [facility] 4 12:15:22 Date Recorded Body height Body mass index (BMI) Body weight Body temperature Oxygen saturation Oxygen saturation in Arterial blood by Pulse oximetry Heart rate Systolic blood pressure Diastolic blood pressure Provider Name and Address Organization Details Last Updated DateTime 5 160.02 cm 33 kg/m2 94525.9 8 g 98.1 [degF] 99 % 99 % 91 /min 118 mm[Hg] 72 mm[Hg] Nohemi Gregorio RN [facility] [employer] [facility] 5 14:17:21 Date Recorded Body height Body mass index (BMI) Body weight Body temperature Oxygen saturation Oxygen saturation in Arterial blood by Pulse oximetry Heart rate Systolic blood pressure Diastolic blood pressure Provider Name and Address Organization Details Last Updated DateTime 5 160.02 cm 32.6 kg/m2 01425 g 98.1 [degF] 98 % 98 % 90 /min 110 mm[Hg] 70 mm[Hg] Nohemi Gregorio RN [facility] [employer] [facility] 5 11:36:08 Date Recorded Body height Body mass index (BMI) Body weight Body temperature Oxygen saturation Oxygen saturation in Arterial blood by Pulse oximetry Heart rate Systolic blood pressure Diastolic blood pressure Provider Name and Address Organization Details Last Updated DateTime 5 160.02 cm 32.8 kg/m2 55422.6 9 g 97.5 [degF] 96 % 96 % 83 /min 120 mm[Hg] 70 mm[Hg] Nohemi Gregorio RN [facility] [employer] [facility] 5 14:03:59 Social History Question Answer Notes LastModified by Organization Details LastModified Time Tobacco Smoking Status Never Smoker Not Available [facility] 11/23/2022 10:40:58 Do You Have An Advance Directive? No MIGRATION.0301 [id number] Information not available 11/23/2022 What Is Your Level Of Alcohol Consumption? Occasional Information not available 10/14/2024 How Many Years Have You Consumed Alcohol? 3 [email or web address] Information not available 10/14/2024 Do You Wear A Helmet When Biking? No MIGRATION.0301 [id number] Information not available 11/23/2022 Is Blood Transfusion Acceptable In An Emergency? Yes Information not available 12/20/2022 What Is Your Level Of Caffeine Consumption? Heavy 2 -3 Sodas 1 Coffee [email or web address] Information not available 10/14/2024 What Is Your Code Status? Full Code Information not available 12/20/2022 In The 14 Days Before Symptom Onset, Have You Had Close Contact With A Laboratory-confi rmed COVID-19 While That Case Was Ill? No [id number] Information not available 11/23/2022 In The 14 Days Before Symptom Onset, Have You Had Close Contact With A Person Who Is Under Investigation For COVID-19 While That Person Was Ill? No [id number] Information not available 11/23/2022 Are You Currently Employed? Yes Information not available 12/20/2022 What Type Of Diet Are You Following? REGULAR MIGRATION.[id number] Information not available 11/23/2022 What Is The Highest Grade Or Level Of School You Have Completed Or The Highest Degree You Have Received? [id number] MIGRATION.[id number] Information not available 11/23/2022 How Many Days Of Moderate To Strenuous Exercise, Like A Brisk Walk, Did You Do In The Last 7 Days? 0 Information not available 12/20/2022 Have There Been Any Changes To Your Family Or Social Situation? Yes 20 Weeks MIGRATION.[id number] Information not available 11/23/2022 What Is The Fluoride Status Of Your Home? Unknown [id number] Information not available 11/23/2022 Are There Any Guns Present In Your Home? No MIGRATION.030 [id number] Information not available 11/23/2022 Do You Use Insect Repellent Routinely? Yes MIGRATION.[id number] Information not available 11/23/2022 Where Do You Live? SingleLevelHouse MIGRATION.[id number] Information not available 11/23/2022 Do You Have A Medical Power Of Outdoor Advertising Leasing Agent? No MIGRATION.030 [id number] Information not available 11/23/2022 How Many Children Do You Have? 1 Information not available 12/20/2022 Do You Have Any Pets? Yes MIGRATION.030 [id number] Information not available 11/23/2022 Do You Use Protection During Sex? No Information not available 12/20/2022 What Is Your Relationship Status? Information not available 12/20/2022 Do You Use Your Seat Belt Or Car Seat Routinely? Yes MIGRATION.030 [id number] Information not available 11/23/2022 Are You Sexually Active? Yes Information not available 12/20/2022 Do You Have Smoke And Carbon Monoxide Detectors In Your Home? Yes MIGRATION.0301 [id number] Information not available 11/23/2022 Are You Passively Exposed To Smoke? No MIGRATION.0301 [id number] Information not available 11/23/2022 Are There Any Smokers In Your House? No MIGRATION.0301 [id number] Information not available 11/23/2022 Do You Participate In Social Media? Yes MIGRATION.0301 [id number] Information not available 11/23/2022 What Types Of Sporting Activities Do You Participate In? NA MIGRATION.0301 [id number] Information not available 11/23/2022 Do You Feel Stressed (tense, Restless, Nervous, Or Anxious, Or Unable To Sleep At Night)? [id number] MIGRATION.030 [id number] Information not available 11/23/2022 Do You Use Sunscreen Routinely? Yes MIGRATION.0301 [id number] Information not available 11/23/2022 Has Tobacco Cessation Counseling Been Provided? No MIGRATION.0301 [id number] Information not available 11/23/2022 Have You Recently Traveled Abroad? No MIGRATION.0301 [id number] Information not available 11/23/2022 Are You Currently In School? Yes MIGRATION.0301 [id number] Information not available 11/23/2022 Do You Have Any Dietary Restrictions? No MIGRATION.0301 [id number] Information not available 11/23/2022 Do You Or Have You Ever Used Any Other Forms Of Tobacco Or Nicotine? No MIGRATION.0301 845501 Information not available 11/23/2022 Sex: Female Functional Status Question Answer Note LastModified by Organizat ion Details LastModified Time What is your exercise level? Occasional [id number] Information not available 11/23/2022 Mental Status None recorded. Family History Relationship Description Onset Age of this Age Resolved Age Notes LastModified by Organization Details LastModified Time Father Diabetes mellitus MIGRATION.118 [id number] Not available 11/23/2022 10:41:38 Mother Asthma MIGRATION.497 [id number] Not available 11/23/2022 10:41:38 Mother Multiple sclerosis 48 MIGRATION.347 [id number] Not available 11/23/2022 10:41:38 Medical History Condition Response BLINDNESS N RHEUMATIC FEVER N KIDNEY STONES N BLADDER PROBLEMS N MRSA N OTHER # 1 N POLIO N LUNG DISEASE/DISORDER N HISTORY OF DRUG ABUSE N RADIATION / CHEMOTHERAPY N COPD N Other # 2 N BLOOD DISEASES N SURGERY N EAR OR HEARING PROBLEMS N MUMPS N SHINGLES N FEMALE PROBLEMS / INFECTIONS N BOWEL PROBLEMS N DEPRESSION (INCLUDING POST ) N STROKE/TIA N THYROID DISEASE N ULCERS N BENIGN PROSTATIC HYPERPLASIA N MEASLES N CERVICALGIA N TB SKIN TEST N HYPOTENSION N MYOCARDIAL INFARCTION N PARAPELGIA N OBESITY N GERD/NAUSEA N ANEURYSM N URINARY/BLADDER/KIDNEY PROBLEMS N CORONARY ARTERY DISEASE (CAD) N MENIERE'S DISEASE N ADDICTION CONCERNS N ENDOMETRIOSIS N USE OF BLOOD THINNERS N SKIN PROBLEMS N EMPHYSEMA N GASTROINTESTINAL DISORDER N MUSCLE,JOINT OR BONE PROBLEMS N GASTROINTESTINAL BLEEDING N BLOOD CLOTS N ASTHMA N CATARACTS N ERECTILE DYSFUNCTION N GI PROBLEMS N CHF N Low Testosterone N NEUROPATHY N INFERTILITY N AIDS/HIV N FRACTURES N CHEMOTHERAPY / RADIATION N VISION/EYE PROBLEMS N LIVER DISEASE N MALE HYPOGONADISM N HYPERTENSION N TOURETTE'S N ANXIETY DISORDER N BLOOD TRANSFUSION N ANEMIA/BLOOD DISORDER N CHRONIC EAR INFECTIONS N BRONCHITIS N TUBERCULOSIS N GLAUCOMA N FOOT PROBLEM N DIVERTICULITIS N SLEEP APNEA N CHICKENPOX N ALLERGIES/HAYFEVER N INFECTIOUS DISEASE N PROSTATE N HEART ARRHYTHMIA N INSOMNIA N HIGH CHOLESTEROL / HYPERLIPIDEMIA N EYE PROBLEMS N HYPERTHYROIDISM N EATING DISORDER N EDEMA N CHRONIC PAIN SYNDROME N CONSTIPATION N CAROTID BLOCKAGE N BACK / NECK PROBLEMS N HAVE YOU BEEN HOSPITALIZED OR SEEN IN [facility] IN THE PAST YEAR ? N ATHEROSCLEROSIS N BREAST PROBLEMS N DIALYSIS N ECZEMA N FIBROMYALGIA N OSTEOPOROSIS N ARTHRITIS N NO SIGNIFICANT PAST MEDICAL HISTORY N APPENDICITIS N DIABETES, TYPE N BAD TEETH N HEARTBURN / REFLUX N ADD/ADHD N AUTISM SPECTRUM DISORDER (ASD) N HEPATITIS / LIVER DISEASE N PULMONARY DISEASE N GOUT N SLEEP DISORDER N ALZHEIMER'S DISEASE N PAIN N DEMENTIA N HERPES N SEIZURES/EPILEPSY N HEADACHES/MIGRAINES N VASCULAR DISEASE N PACEMAKER N DIZZINESS N HEART DISEASE/HEART PROBLEMS N KIDNEY DISEASE N SCARLET FEVER N MULTIPLE SCLEROSIS N DEVELOPMENTAL OR BEHAVIORAL DISORDERS N MENTAL DISORDER/ILLNESS N CANCER: SPECIFY N CARDIAC ARRHYTHMIA N PNEUMONIA N ATRIAL FIBRILLATION N Gall Stones N PULMONARY EMBOLISM N AUTOIMMUNE DISEASE N Gynecological History Statement/Question Response Flow Heavy Date of LMP 12/13/2022 STIs/STDs N Dislike of Light during Menstrual Headac he N Do your menstrual headaches get severe Y Duration of Flow (days) 6 Most Recent Mammogram Current Control Method BCPs Age at Menarche 10 Breast Problems none How many live births 1 Date of Last Colonoscopy Frequency of Cycle (Q days) 28 Most Recent Bone Density Sexually Active? Y Do you get headaches during your period N Menses Monthly Y Date of Last Pap Smear 10/28/2022 Discharge none Obstetrics History GPAL:G 1 P 0 0 0 0 Immunizations Vaccine Type Date Status Note Provider Nam e and Address Organization Details Recorded Time Influenza, split virus, quadrivalent, PF 05/25/2023 completed Anneliese Schmidt RN null, [place] - [place] [employer] [facility] 05/25/2023 11:10:58 Past Encounters Encounter ID Performer Location Encounter Start Date Encounter Closed Date Diagnosis/Indication Diagnosis SNOMED-CT Code Diagnosis ICD10 Code Diagnosis Note [id number] [address] [address] 10/26/2021 00:00:00 10/26/2021 16:59:[id number] [address] 03/23/2022 00:00:00 03/23/2022 18:03:[id number] [address] 05/18/2022 00:00:00 05/18/2022 16:53:37 [id number] Anneliese Malik NP [address] [address] 12/20/2022 14:32:22 12/20/2022 15:26:59 Adult health examination 448928153 Z00.00 Encouraged well balanced meals, active lifestyle, and routine vision and dental appts. Low back pain 660268919 M54.50 Seeing chiro. Will update imaging. Small fibe r neuropathy 576929693 G62.89 Duloxetine 20 mg po daily. Anemia screening 3655626 07 Z13.0 Diabetes m ellitus screening 106375124 Z13.1 Thyroid di sorder screening 529121059 Z13.29 Hyperlipid emia screening 121817717 Z13.220 [id number] Anneliese Malik NP [address] [address] 12/21/2022 09:48:55 12/21/2022 10:02:19 [id number] Anneliese Malik NP [address] [address] 1 05/25/2023 10:33:19 05/25/2023 10:43:03 Administration of influenza vaccine 83908754 Z23 [id number] Hansel Gannon MD [address] [address] 04/22/2024 12:07:29 04/22/2024 12:57:58 Obesity 173520254 E66.9 Migraine with aura 47102 06 G43.109 Family his tory of Migraine 408512284 Z82.0 Nausea 444167644 R11.0 Fibromyalgia 690782591 M 79.7 Cont f/u with specialist at [facility] as directed. [id number] Hansel Gannon MD [address] [address] 10/02/2024 14:08:03 10/02/2024 14:38:45 Migraine with aura 5563209 G43.109 Family his tory of Migraine 261771242 Z82.0 Nausea 690767548 R11.0 Fibromyalgia 446901698 M 79.7 Cont f/u with specialist at [facility] as directed. Obesity 338711259 E66.9 [id number] Hansel Gannon MD [address] [address] 10/14/2024 11:26:20 10/14/2024 12:08:24 Fibromyalgia 007338515 M79.7 Cont f/u with specialist at [facility] as directed. Obesity 413538451 E66.9 Adult heal th examination 117757114 Z00.00 Migraine with aura 79152 06 G43.549 [id number] Hansel Gannon MD [address] [address] 10/24/2024 13:56:09 10/24/2024 14:19:11 Migraine with aura 5196617 G43.109 Fibromyalgia 736910743 M 79.7 Obesity 299715912 E66.9 Vitamin D deficiency 347 21230 E55.9 Health Concerns Section Related Observation LastModified by Organization Detai ls LastModified Time None Recorded Concern Status LastModified by Organization Details LastModified Time None Recorded Advance Directives Directive N: Payers Encounter Date Sequence Insurance Name Policy Number Policy Bernal Covered Member ID Bernal Member ID Guarantor Name 05/25/2023 1 [facility] (MEDICAID HMO) [id number] Erendira Aguayoo [id number] Erendira Sharon 04/22/2024 1 [facility] Andrea Sharon [id number] Erendira Sharon 10/02/2024 1 [facility] Andrea Sharon [id number] Erendira Sharon 10/14/2024 1 [facility] Andrea Sharon [id number] Erendira Sharon 10/24/2024 1 [facility] Andrea Sharon [id number] Erendira Aguayoo Notes Date Note Type Note Provider Name and Address Organization Details Recorded Time 04/22/2024 text/html ACV: C/o migraine with aura since she was in elementary school. Pt says she has strong FH of migraine too. Denies any recent fall/head trauma. Denies any chance of . Pt has tried few OCPs few yrs ago and her migraine got better. But after few yrs, its back again. She has stopped taking OCPs. Pt sees eye doctor regularly. Hansel Gannon MD [address], [address], [place], [address], [employer] [facility] [employer] 04/22/2024 12:52:47 10/02/2024 text/html Pt is here for f/u on her meds and chronic conditions. Doing overall well. Denies any problem with meds. Last visit in 04/17. C/o migraine with aura since she was in elementary school. Pt says she has strong FH of migraine too. Pt has seen Neuro at [facility] for this and had multiple testing with them and all came back good as per pt. Pt sees eye doctor & Gyne regularly. Hansel Gannon MD [address], [address], [place], [address], [employer] [facility] [employer] 10/02/2024 14:39:10 10/14/2024 text/html Pt is here for her annual exam. Doing overall well. Denies any problem with meds. Denies any new concern. C/o migraine with aura since she was in elementary school. Pt says she has strong FH of migraine too. Pt has seen Neuro at [facility] for this and had multiple testing with them and all came back good as per pt. Pt sees eye doctor & Gyne regularly. Hansel Gannon MD [address], [facility] [address], [place], [address], [email or web address] 10/14/2024 12:14:24 10/24/2024 text/html Pt is here for f/u on her annual labs. Doing overall well. Denies any problem with meds. Denies any new concern. C/o migraine with aura since she was in elementary school. Pt says she has strong FH of migraine too. Pt has seen Neuro at [facility] for this and had multiple testing with them and all came back good as per pt. Pt sees eye doctor & Gyne regularly. Hansel Gannon MD [address], [address], [place], [address], [email or web address] 10/24/2024 14:15:31 OBGyn Episode No OBEpisode recorded.
[2024-12-07 12:11] VITALS: BP 111/68; PULSE 89; RESP 17; TEMP 37.1; O2SAT 100
[2024-12-07 12:37] LABS: EDSTREPNEGPOS1 Negative (Negative)
[2024-12-07 12:38] LABS: EDCOVIDSCREEN Negative (Negative); EDINFLUASCREEN Negative (Negative); EDINFLUBSCREEN Negative (Negative)
--- NOTE | 2024-12-07 12:53 | ED.URI ---
HPI - URI/Sore Throat General Chief Complaint: Upper Respiratory Infection Stated Complaint: strep throat History of Present Illness HPI Narrative: 24-year-old female with complaints of sore throat x3 days and a little bit of mucus that started yesterday. Denies any fevers, body aches, chills. Patient does state that her daughter is strep positive. Currently on antibiotics. Patient is questionably waiting for blood work to return. Related Data Home Medications ?Medication ?Instructions ?Recorded ?Confirmed ?Last Taken ?Type albuterol sulfate 90 mcg/actuation 2 puff inhalation QID PRN Dyspnea 08/16/24 08/16/24 Unknown History aerosol inhaler Allergies Allergy/AdvReac Type Severity Reaction Status Date / Time Latex, Natural Rubber Allergy Rash Verified 12/07/24 12:25 diphenhydramine (From AdvReac Anxiety Verified 12/07/24 12:25 Benadryl) Review of Systems Review of Systems: All systems reviewed & are unremarkable except as noted in HPI and below Eyes: Eyes: Reports as per HPI ENT: Reports as per HPI Cardiovascular: Cardiovascular: Reports as per HPI Respiratory: Respiratory: Reports as per HPI Genitourinary: Genitourinary: Reports as per HPI Musculoskeletal: Musculoskeletal: Reports as per HPI Integumentary/Breasts: Skin/Breast: Reports as per HPI Neurologic: Reports as per HPI Psychiatric: Psychiatric: Reports as per HPI Endocrine: Endocrine: Reports as per HPI Hematologic/Lymphatic: Hematologic/Lymphatic: Reports as per HPI Allergic/Immunologic: Allergic/Immunologic: Reports as per HPI PMFSH Past Medical History Medical History Anxiety and depression Asthma Eczema Fibromyalgia Migraines Obese Surgical History Surgical History Hx of tympanostomy tubes Family History Family History Mother Chronic obstructive pulmonary disease Asthma Lupus Pacemaker Depression Multiple sclerosis A-fib Father Diabetes mellitus Kidney failure Anxiety Gout Sibling Asthma Sibling Asperger's disorder Autism Asthma Social History Social History Smoking status: Never smoker Alcohol intake: never Substance use: never Living arrangements: with family Occupation/Education: student Gender identity (if verbalized by the patient): Female Spiritual care concerns: No Exam Const: General: cooperative, healthy appearing, comfortable, no acute distress and well developed Orientation/consciousness: patient oriented x3 HENMT: Head: normal to inspection Ears: TM's normal bilaterally Face/Nose/Sinus: Abnormal mucous membranes and turbinates present boggy bilateral and erythematous bilateral Throat: posterior oropharynx abnormal erythema Eyes: General: appearance normal, both eyes and all related structures Resp: Effort & Inspection: normal respiratory effort and able to speak in complete sentences Auscultation: clear to auscultation bilaterally Cardio: Rate: regular rate Rhythm: regular rhythm Heart sounds: S1 normal heart sound present and S2 normal heart sound present Skin: General skin exam: normal color Neuro: General: patient oriented x3 Cognition (Neuro): normal cognition Speech: normal speech Psych: Mental Status: mental status grossly normal Course Course Level of Care: Express Care Visit Vital Signs Vital signs: Vital Signs Temperature 98.8 F 12/07/24 12:11 Pulse Rate 89 12/07/24 12:11 Respiratory Rate 17 12/07/24 12:11 Blood Pressure 111/68 12/07/24 12:11 Pulse Oximetry 100 12/07/24 12:11 Oxygen Delivery Room Air 12/07/24 12:11 Temperature 98.8 F 12/07/24 12:11 Pulse Rate 89 12/07/24 12:11 Respiratory Rate 17 12/07/24 12:11 Blood Pressure 111/68 12/07/24 12:11 Pulse Oximetry 100 12/07/24 12:11 Oxygen Delivery Room Air 12/07/24 12:11 MDM - URI/Sore Throat MDM Narrative Medical decision making narrative: 24-year-old female HPI is noted. Differentials include But not limited upper respiratory infection, sinusitis, viral infection, influenza, strep pharyngitis. COVID flu and strep obtained. All are negative. Patient has had close contact with strep positive daughter. Patient questionably 2. Knowing this will tentatively treat for strep with amoxicillin which will be safe in . Patient states she is waiting for blood work to come back from her Ob. Did instruct patient that she was negative today but due to her close contact , possible , erythema I would treat. Also aware that amoxicillin a safe in . She is also aware that she is only to take Tylenol not ibuprofen due to questionable . Differential Diagnosis Differential diagnosis: Likely upper respiratory infection, otitis media, viral infection and influenza Lab Data Attestation: I reviewed the patient's lab results. Labs: Lab Results 12/07/24 Range/Units 12:36 POC Influenza A Ag Negative (Negative) POC Influenza B Ag Negative (Negative) POC SARS CoV-2 Ag Negative (Negative) POC Grp A Strep Screen Negative (Negative) Discharge Plan Discharge Clinical Impression: Pharyngitis Patient Disposition: Home, Self-Care Condition: Stable Instructions: Antibiotic Form, Pharyngitis (ED) Additional Instructions: your strep was negative today but due to possible and close contact with strep positive daughter who I will treat with amoxicillin. Tylenol as needed for pain or fever per package directions. Warm saltwater gargles will help. Also recommend using Flonase 2 sprays each nostril For sinus drainage. Patient Language: Icelandic Prescriptions: New amoxicillin 500 mg tablet 500 mg PO Q12H Qty: 20 0RF No Action albuterol sulfate 90 mcg/actuation HFA aerosol inhaler 2 puff inhalation QID PRN (Reason: Dyspnea) Follow-up/Referrals: Jagdeep,MD Hansel [Primary Care Provider] - ( As needed) Time of Disposition: 12:59
== END 2024-12-07 13:04 | disposition home or self-care (01) ==
PROVIDERS: Emergency Provider Nurse Practitioner Family; PCP Family Medicine
DX: J02.9 Acute pharyngitis, unspecified (principal); Z20.822 Contact with and (suspected) exposure to COVID-19; J45.909 Unspecified asthma, uncomplicated; M79.7 Fibromyalgia; E66.9 Obesity, unspecified; Z68.32 Body mass index [BMI] 32.0-32.9, adult
CPT/HCPCS: 87081; 87426; 87804; 87880; 99213; G0463

== ENCOUNTER 2025-01-15 18:19 | Emergency (ER) | payer OTHER, SELFPAY ==
--- OUTSIDE RECORDS SUMMARY | 2025-01-15 18:21 | XMS_ITS | Clinical Summary ---
Author Organization [facility] [place] Address [address] [place] [address] Care Team Providers Care Winding Lathe Operator Name Role Phone Anneliese Malik Sabrina MANAGEMENT PSYCHOLOGIST Primary Care Provider + Allergies No known [...] HPV Vaccines Completed 08/04/2015, 05/2015, 05/09/2014 Insurance [facility] Care Teams Winding Lathe Operator Relationship Specialty Start Date End Date Anneliese Malik NP PCP - General Nurse Practitioner 04/12/22
--- OUTSIDE RECORDS SUMMARY | 2025-01-15 18:22 | XMS_ITS | Data Portability ---
Author Organization [facility] [place] Address [address] [place] [address] [place] [address] Assessment No assessment recorded. Plan of Treatment Reminders Order Date Submit Date Provider Last Modified By Organization Details Last Modified Time Details Appointments None recorded. Lab test, urine 2023 024 [email or web address] [place], [address], [place], [address], 4 18:20:01 Referral None recorded. Procedures None recorded. Surgeries suction dilation & curettage (SURG) 2023 024 [id number], [address], [place], [address], 4 11:16:07 Imaging US, obstetric, transvagina l 2023 024 [email or web address] [place], [address], [place], [address], 4 21:15:15 Medication Orders Diflucan 150 mg tablet 2024 025 [id number], [address], [place], [place], [id number], 5 16:44:20 Patient TargetsNo targets recorded. Patient InstructionsNo instructions recorded. Reason for Referral None Reported. Results Created Date Observation Date Name Description Value Unit Range Abnormal Flag Note LastModifiedBy Organization Detail LastModifiedTime 10/23/07/17/2024 BHCG, QUANT ITATI VE B-HCG 75.4 mIU/m L This assay was perfo rmed using [employer] ratio n reage nts and test kits. Value s obtai sebastien with other assay metho ds or kits canno t be used inter [facility] eay . Refer ence Range s: [...] Weeks 8,099 - 58,17 6 Not Available [facility] (Lab) [address], [place], [address], 07/18/2024 08:55:53 07/19/20 24 07/19/2024 BHCG, QUANT ITATI VE B-HCG 251.0 mIU/m L This assay was perfo rmed using [employer] ratio n reage nts and test kits. Value s obtai sebastien with other assay metho ds or kits canno t be used inter [facility] e[facility] . Refer ence Range s: Non-p regna [...] Weeks 8,099 - 58,17 6 Not Available [facility] (Lab) [address], [place], [address], 07/20/2024 05:28:24 11/06/19 25 11/06/2024 WOMEN 'S HEALT H SWAB PLUS, RUBEN bacterial vaginosis (bv), tma Negati ve negati ve Not Available [facility] (Lab) [address] [place], [address], 11/08/2024 01:44:49 11/06/19 25 11/06/2024 WOMEN 'S HEALT H SWAB PLUS, RUBEN madalyn species, tma Positi ve negati ve abnormal Not Available [facility] (Lab) [address] [place], [address], 11/08/2024 01:44:49 11/06/19 25 11/06/2024 WOMEN 'S HEALT H SWAB PLUS, RUBEN madalyn glabrata, tma Negati ve negati ve Not Available [facility] (Lab) [address] [place], [address], 11/08/2024 01:44:49 11/06/19 25 11/06/2024 WOMEN 'S HEALT H SWAB PLUS, RUBEN trichomonas vaginalis, tma Negati ve negati ve Not Available [facility] (Lab) [address] [place], [address], 11/08/2024 01:44:49 11/06/19 25 11/06/2024 WOMEN 'S HEALT H SWAB PLUS, RUBEN chlamydia trachomatis, PCR Negati ve negati ve Not Available [facility] (Lab) [address], [place], [address], 11/08/2024 01:44:49 11/06/19 25 11/06/2024 WOMEN 'S [...] ded in this panel . Not Available [facility] (Lab) [address], [place], [address], 11/08/2024 01:44:49 12/07/1912/06/2024 BHCG, QUANT ITATI VE B-HCG <0.2 mIU/m L 0.0-4. 9 This assay was perfo rmed using [employer] ratio n reage nts and test kits. Value s obtai sebastien with other assay metho ds or kits canno t be used inter [facility] eably . Refer ence Range s: Non-p regna nt, preme nopau adelaide women : 0.0-4 .9 mIU/m L Postm enopa usal women : [...] Weeks 8,099 - 58,17 6 Not Available [facility] (Lab) [address], [place], [address], 12/07/2024 03:35:17 07/26/20 24 07/26/2024 US, obste tric, trans vagin al No observ ation record ed. [facility] [address], [place], [address], 07/26/2024 13:56:03 07/26/20 24 07/26/2024 US, obste tric, follo w-up No observ ation record ed. [address] [facility], [place], [address], 07/29/2024 17:36:39 08/02/20 24 08/02/2024 US, obste tric, trans vagin al No observ ation record ed. [email or web address] [place] [address], [place], [address], 08/02/2024 13:02:28 08/02/20 24 08/02/2024 US, obste tric, trans vagin al No observ ation record ed. [email or web address] [address] [facility], [place], [address], 08/03/2024 14:52:42 08/13/20 24 08/13/2024 US, obste tric, trans vagin al No observ ation record ed. [email or web address] [place] [address], [place], [address], 08/13/2024 12:36:53 08/13/20 24 08/13/2024 US, obste tric, trans vagin al No observ ation record ed. [email or web address] [address], [place], [address], 08/13/2024 20:13:32 08/16/20 24 08/16/2024 US, obste tric, trans vagin al No observ ation record ed. [email or web address] [place] [address], [place], [address], 08/16/2024 17:01:16 08/16/20 24 08/16/2024 US, obste tric, trans vagin al No observ ation record ed. [email or web address] [address], [place], [address], 08/16/2024 21:11:23 Result Notes None recorded. Problems Name Problem SNOMED Code Status Onset Date Resolution Date Notes Provider Name and Address Organization Details Recorded Time Cyst of vulva 92834779 Completed 201807/09/2021 Vulvar cyst;Rec orded Elsewher e: No Locat ion: [facility] S ource: EHR Psychology Technician alber: N Practi ce ID: [email or web address] Javon lable Time: 09:15:00 AM Radha Gould MD [address], [place], [address], [facility] 14:33:19 Fibromya lgia 355546504 Active 2020 Radha Gould MD [address], [place], [address], [facility] 15:38:53 Asthma 115135475 Active 2020 Radha Gould MD [address], [place], [address], [place] [facility] 1 15:38:58 Fracture of fifth lumbar vertebra 437770686 Active 2020 Radha Gould MD [address], [place], [address], [facility] 1 15:40:11 Pregnanc y 76527198 Completed 202002/25/2022 Susan turner, [facility] 2 12:02:27 Anxiety in pregnanc y 6629221443 9109 Completed 2020 zoloft to start 08/31. EPDS 10 11/01 Susan turner, [facility] 2 12:02:18 Rubella non-immu ne 345685423 Completed MMR PP Susan [facility]iles [facility], [facility] 2 12:02:18 Fracture of lumbar spine 758259327 Completed L5 3 years ago, went through PT Susandiego stiles [facility], [facility] 2 12:02:18 ultrasou nd scan abnormal 5770354749 9109 Completed probably club feet Susan stiles [facility], [facility] 2 12:02:18 Anxiety 69220471 Active 2021 [place] null, [facility] 2 12:53:52 Notes:SSM MFM Level II u/s o nly 10/06/21 11:15 - per Rosa Elena KIM DR will review results with pt Level II u/s only 11/05 11:15AM Problem Notes None recorded. Procedures Surgical History Date Name Laterality Status Provider Name and Address Organization Details Recorded Time 08/19/20 24 Dilation and Curettage completed Xiao Oates [facility] 2024 10:09:46 08/19/20 24 LAPAROSCOPIC OVARIAN CYSTECTOMY (SURG) completed Maureen Leija [facility] 08/19/2024 14:57:50 09/01/20 23 Ovarian Cystectomy completed Xiao Oates [facility] 04/04/2024 11:32:42 10/28/19 23 Excision and closure completed Pablito Lakhani MD [address], [place], [address], [place] [facility] 10/28/2022 18:17:25 10/28/19 23 Date of Last Pap Smear completed Antoinette Hua [facility] 10/28/2022 15:52:30 Imaging Results Imaging Date Name Status LastModified by Organization Details LastModified Time 07/26/2024 US, obstetric, transvaginal completed [email or web address] [place] [address], [place], [address], 07/26/2024 13:56:03 07/26/2024 US, obstetric, follow-up completed TURNER [address], [place], [address], 07/29/2024 17:36:39 08/02/2024 US, obstetric, transvaginal completed [email or web address] [place] [address], [place], [address], 08/02/2024 13:02:28 08/02/2024 US, obstetric, transvaginal completed [email or web address] [address], [place], [address], 08/03/2024 14:52:42 08/13/2024 US, obstetric, transvaginal completed [email or web address] [place] [address], [place], [address], 08/13/2024 12:36:53 08/13/2024 US, obstetric, transvaginal completed [email or web address] [address], [place], [address], 08/13/2024 20:13:32 08/16/2024 US, obstetric, transvaginal completed [facility] [address], [place], [address], 08/16/2024 17:01:16 08/16/2024 US, obstetric, transvaginal completed [email or web address] [address], [place], [address], 08/16/2024 21:11:23 Procedure Notes None recorded. Medical Equipment None Reported. Allergies Allergen ID Allergen Name Allergen Category Reaction Reaction Severity Criticality Documentation Date Start Date Code Code System Note Provider Name and Address Organization Details Recorded Time 2464 latex environme nt,medica tion Not available Not available Not available 07/15/2020 70424 91 RxNorm Antoinette Hua [facility] 0 15:11:48 Medications Name Sig Start [...] Not Available Not Available Not Available metoclopram ceilo 5 mg tablet Take 1 tablet every [...] TAKE 1 TABLET BY MOUTH EVERY DAY (NEEDS TO SCHEDULE WELL WOMEN APPOINTME NT ) 2024 active Not Available Not Available Not Avai carmelo Siddiqui COVID-19 Ag Self Test kit 07/03 completed [...] Updated DateTime 08/16/2024 157.48 cm 34.6 kg/m2 10568.96 g 117 mm[Hg] 82 mm[Hg] Xiao Oates [facility] 4 09:47:33 Date Recorded Body height Body mass index (BMI) Body weight Systolic blood pressure Diastolic blood pressure Provider Name and Address Organization Details Last Updated DateTime 2024 157.48 cm 34.2 kg/m2 69218.77 g 122 mm[Hg] 72 mm[Hg] Xiao [facility] 4 10:08:12 Date Recorded Body height Body mass index (BMI) Body weight Systolic blood pressure Diastolic blood pressure Provider Name and Address Organization Details Last Updated DateTime 09/05/2024 157.48 cm 34.2 kg/m2 51444.77 g 120 mm[Hg] 67 mm[Hg] [facility] 4 18:12:42 Date Recorded Body height Body mass index (BMI) Body weight Systolic blood pressure Diastolic blood pressure Provider Name and Address Organization Details Last Updated DateTime 11/06/2024 157.48 cm 33.1 kg/m2 92142.22 g 119 mm[Hg] 84 mm[Hg] [facility] 5 16:06:15 Social History Question Answer Notes LastModified by Organizat ion Details LastModified Time Tobacco Smoking Status Never Smoker Antoinette Hua [facility] 07/15/2020 15:14:36 What Is Your Level Of Alcohol Consumption? Occasional [email or web address] Information not available 12/08/2021 Are You Blind Or Do You Have Difficulty Seeing? No Information n ot available 04/15/2021 What Is Your Level Of Caffeine Consumption? Occasional Information not available 04/15/2021 In The 14 Days Before Symptom Onset, Have You Had Close Contact With A Laboratory-confirm ed COVID-19 While That Case Was Ill? No [email or web address] Information n ot available 12/08/2021 In The 14 Days Before Symptom Onset, Have You Had Close Contact With A Person Who Is Under Investigation For COVID-19 While That Person Was Ill? No [email or web address] Information not available 12/08/2021 Have You Been To An Area Known To Be High Risk For COVID-19? No [email or web address] Information not available 12/08/2021 Are You Deaf Or Do You Have Serious Difficulty Hearing? No Information not available 04/15/2021 What Type Of Diet Are You Following? REGULAR Information n ot available 04/15/2021 Have You Ever Been Counseled For Unhealthy Alcohol Use? No [email or web address] Information not available 01/12/2022 Do You Use Your Seat Belt Or Car Seat Routinely? Yes Information not available 04/15/2021 Do You Have Smoke And Carbon Monoxide Detectors In Your Home? Yes Information not available 04/15/2021 Do You Feel Stressed (tense, Restless, Nervous, Or Anxious, Or Unable To Sleep At Night)? [id number] Information not available 04/15/2021 Do You Use Any Illicit Or Recreational Drugs? No Information not available 04/15/2021 Do You Use Sunscreen Routinely? Yes Information not available 04/15/2021 Has Tobacco Cessation Counseling Been Provided? No [email or web address] Information not available 12/08/2021 Do You Or Have You Ever Used Any Other Forms Of Tobacco Or Nicotine? No [email or web address] Information not available 12/08/2021 Sex: Unknown Functional Status Question Answer Note LastModified by Organizat ion Details LastModified Time Do you have difficulty walking or climbing stairs? No Information not available 12/08/2021 Are you able to walk? YESWOREST Information not available 04/15/2021 Are you able to care for yourself? Yes [email or web address] Information not available 12/08/2021 Do you have difficulty dressing or bathing? No [email or web address] Information not available 12/08/2021 What is your [...] Not available 2020 13:42:25 Father Heart disease [email or web address] Not available 2019 15:14:31 Medical History Condition Response Allergies (Food, seasonal, environmental ) Y Other Y Blood Transfusion N Drug/Latex Allergies/Reactions Y Breast Cancer N Dermatologic Disorders N Lung Disease N Defects or Inherited Disease N Breast Problem N Gestational Diabetes N Hematologic disorders N Anesthesia Complications N History of STI N Deep Vein Thrombosis N Polycystic ovary syndrome N Anxiety Disorder Y Autoimmune disease N Arthritis N Infertility N Polyps N Acid Reflux (GERD) N History of abnormal pap N Cancer N Stroke N Varicosities N Neurologic/Epilepsy N Endometriosis N High Cholesterol N Headaches Y Fibromyalgia N Kidney Disease N Heart Problems N Kidney or Bladder Problems N Thyroid Problems N GI Problems N Eating Disorder [...] SNOMED-CT Code Diagnosis ICD10 Code Diagnosis Note [id number] Pablito Lakhani MD [place] [address] [address] 07/15/2020 14:49:27 07/15/2020 16:51:46 Mass of left breast 0917437121 6644227 N63.20 patient is an 19-year-ol d female with a palpable, tender breast lump. We will [place] breast [place]. [id number] Pablito Lakhani MD [place] [address],[place] [address] 05/03/2021 15:51:46 05/03/2021 16:46:03 Postcoital bleeding 30548290 N93.0 Dyspareunia 65761121 N94 .10 This patient is a 20-year-ol [...] to discuss. They are of unknown prognosis. [id number] Nurys Yates [place] [address],[place] [address] 05/10/2021 15:58:34 05/10/2021 16:44:07 Pain in pelvis 64164270 R10.2 [id number] Pablito Lakhani MD [place] [address],[place] [address] 05/12/2021 17:57:34 05/13/2021 09:37:42 Dyspareunia 56003115 N94.10 This patient is a 20-year-ol d [...] spent more than 15 minutes face-[place]-fa ce. [id number] Jaelyn Asif [place] [address],[place] [address] 07/09/2021 13:41:50 07/09/2021 15:09:48 [id number] Radha Gould MD [place] [address],[place] [address] 07/09/2021 13:42:13 07/09/2021 15:45:38 Asthma 093862047 J45.909 Fibromyalgia 081443068 M 79.7 Body mass index 30+ - obesity 412649520 Z68.32 Anxiety in 033 0210169 9109 F41.9 [id number] Jaelyn Asif [place] [address],[place] [address] 08/03/2021 12:21:58 08/03/2021 13:05:08 screening 983835804 Z36.82 [id number] Radha Gould MD [place] [address],[place] [address] 08/03/2021 13:40:14 08/04/2021 10:17:22 Routine care 042785771 Z34.91 [id number] Radha Gould MD [place] [address],[place] [address] 08/31/2021 13:53:17 09/01/2021 09:57:51 Anxiety in 0414411066 9109 F41.9 [id number] Nurys Yates [place] [address],[place] [address] 09/29/2021 11:24:03 09/29/2021 14:50:14 screening for malformation 223193377 Z36.3 [id number] Radha Gould MD [place] [address],[place] [address] 09/29/2021 11:24:40 09/29/2021 12:54:30 ultrasound scan abnormal 7906494768 9109 O28.3 Anxiety in 508 2525494 9109 F41.9 Back pain complicating 64121023 O26.899 [id number] Yulisa Barron [place] [address],[place] [address] 10/20/2021 11:20:53 10/20/2021 11:54:35 Urinary symptoms 256735474 R39.9 [id number] Jaelyn Asif [place] [address],[place] [address] 10/20/2021 11:38:41 10/20/2021 11:54:52 Cervical incompetence 58878957 O34.30 Z3A.23 [id number] Pablito Lakhani MD [place] [address],[place] [address] 10/29/2021 15:45:53 10/29/2021 16:25:22 Routine care 209873921 Z34.02 [id number] Yulisa Caraballomarynancy [place] [address],[place] [address] 11/22/2021 11:25:57 11/22/2021 19:01:37 Routine care 267381553 Z34.93 [id number] Blanquita Cage [facility] [address],[place] [address] 12/08/2021 11:23:43 12/08/2021 12:51:42 Routine care 258247969 Z34.93 [id number] Blanquita Cage [facility] [address],[place] [address] 12/24/2021 15:34:10 12/24/2021 16:03:43 Routine care 217648888 Z34.93 [id number] Blanquita Cage [facility] [address],[place] [address] 01/12/2022 11:34:26 01/12/2022 14:00:32 Routine care 519062022 Z34.93 [id number] Blanquita Cage [facility] [address],[place] [address] 01/19/2022 09:59:14 01/19/2022 10:59:49 Routine care 073231694 Z34.93 [id number] Radha Gould MD [place] [address],[place] [address] 01/24/2022 16:09:36 01/24/2022 16:36:14 Routine care 672009276 Z34.91 [id number] Jaelyn Asif [place] [address],[place] [address] 01/28/2022 12:03:31 01/28/2022 12:29:43 Maternal obesity complicating , childbirth and the puerperium, antepartum 6014090198 07 O99.213 O28.3 Z3A.38 [id number] [facility] [address] [address] 02/02/2022 18:04:57 02/02/2022 18:48:45 Routine care 654814395 Z34.93 [id number] KRISTIAN Comer [place] [address],[place] [address] 02/17/2022 15:19:55 02/17/2022 15:52:24 Urinary symptoms 635107853 R39.9 Here for urinary burning, urgency, and frequency x 2-3 days.Vagin al delivery on 02/04/2022 She is breastfeed ingUA today with leuks and blood, will send for cultureWe discussed treatment based on UA and symptoms.W ill start Cephalexin 500mg, twice daily for 5 days.We discussed cephalexin may be used while breastfeed ing, no known risk of harm, though possible risk of infant diarrhea based on limited human data, no known data available to assess effects on milk production .Patient agrees to these risk. RTC if symptoms persist past treatmentR TC for visit Time spent with the patient was 30 minutes [id number] Blanquita Cage CNM [place] [address],[place] [address] 03/03/2022 11:21:26 03/03/2022 12:47:29 Vaginitis 10601953 N76.0 Nausea 120613914 R11.0 [id number] Blanquita Cage CNM [place] [address],[place] [address] 04/01/2022 14:04:33 04/01/2022 15:11:46 Dyspareunia 83119316 N94.10 [id number] Blanquiat Cage CNM [place] [address],[place] [address] 07/13/2022 14:01:07 07/13/2022 14:41:58 Irregular periods 37695054 N92.6 [id number] Anastasia Clements [facility] [address],[place] [address] 09/29/2022 16:03:20 10/03/2022 16:09:17 Dyspareunia 89425284 N94.10 Today I have recommende d the following: consultPel vanessa floor therapyAgr eeable to plan of care. Time spent in visit is a total of 15 mins with at least 50% of visit consisting of counseling and review of plan of care. [id number] Pablito Lakhani MD [place] [address],[place] [address] 10/14/2022 14:46:21 10/14/2022 16:19:59 Dyspareunia 30847028 N94.10 22-year-ol d female presents for painful [...] patient. More than 50% was counseling . [id number] Pablito Lakhani MD [place] [address],[place] [address] 10/28/2022 13:51:00 10/31/2022 16:05:27 Dyspareunia 51575178 N94.10 resection of hymenal remnant was performed without complicati on. 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 [id number] Pablito Lakhani MD [place] [address],[place] [address] 11/07/2022 16:08:30 11/07/2022 17:11:59 Hymenal tag 860905001 N89.8 this patient is a 22-year-ol d female presents for follow-up on excision of hymeneal remnant. She has no complaints . She is doing very well. No pain. Was examined. Is intact and looks well looks great. She will follow-up as needed. [id number] KRISTIAN Comer [place] [address],[place] [address] 05/24/2023 09:52:13 05/24/2023 11:13:05 Irregular periods 24189955 N92.6 we agreed to update pelvic u/s [...] counseling and review of plan of care. [facility] ion care management 795367491 Z30.9 [id number] Nurys Yates [place] [address],[place] [address] 05/25/2023 10:58:19 05/25/2023 11:33:31 Irregular intermenstrual bleeding 49786610 N92.1 [id number] KRISTIAN Comer [place] [address],[place] [address] 05/31/2023 11:22:43 05/31/2023 11:51:08 Contraception care management 377568888 Z30.9 Reviewed updated u/s - wnldiscuss ed [...] of plan of care. Break-thro ugh bleeding 71463678 N92.1 [id number] Pablito Lakhani MD [place] [address] [address] 07/03/2023 15:28:32 07/04/2023 08:57:49 Amenorrhea 16984190 N91.2 22-year-ol d female with 2 months [...] counseling . She will follow-up as needed. [id number] [place] [address],[place] [address] 08/24/2023 15:01:45 08/24/2023 17:52:16 Hemorrhagic cyst of ovary 238222248 N83.209 This patient is a 22-year-ol d female with pelvic pain, hemorrhagi c ovarian cyst, and cervical lesion. We have agreed to perform laparoscop ic right ovarian cystectomy and hysterosco py D&C. She understand s the risks, benefits, and alternativ es. She is completed the informed consent process and is ready to proceed. Pain in pelvis 14084544 R10.2 Lesion of cervix 1861920 01 N88.9 [id number] Pablito Lakhani MD [place] [address],[place] [address] 09/06/2023 17:55:55 09/06/2023 18:03:36 [id number] Pablito Lahkani MD [place] [address],[place] [address] 09/08/2023 09:39:11 09/08/2023 10:14:31 Postoperative care 021807443 Z48.89 23-year-ol d female presents for postop follow-up. She is recovering normally. We did a laparoscop ic ovarian cystectomy and hysterosco py D&C. She had the unique nabothian cysts on stalks within the endocervic al canal. She is no complaints . She will follow-up as needed. [id number] Pablito Lakhani MD [place] [address],[place] [address] 09/14/2023 15:50:51 09/14/2023 16:14:41 Contact dermatitis 86240388 L25.9 23-year-ol d female who is 2 weeks postop from a ovarian cystectomy had glue over her incisions. She appears to have a delayed hypersensi tivity to their glue. She has some raised erythemato us patches in the pattern of the glue around her incision sites. We agreed to treat with a higher potency steroid cream. [id number] KRISTIAN Comer [place] [address],[place] [address] 11/24/2023 11:24:07 11/24/2023 11:53:32 Contraception care management 278913139 Z30.9 Discussed all progestero ne BC methods [...] check. Pt verbalized understand ing. Irregular periods 930101 07 N92.6 [id number] KRISTIAN Comer [place] [address],[place] [address] 01/19/2024 11:38:46 01/19/2024 13:05:19 Pain in pelvis 10598821 R10.2 This patient is a 23 -year-old [...] chills. pelvic u/s scheduledd eclined STI screen [id number] Luisa Garcia [place] [address],[place] [address] 01/23/2024 17:00:18 01/24/2024 02:24:52 Pain in pelvis 77540392 R10.2 [id number] Pablito Lakhani MD [place] [address],[place] [address] 04/01/2024 16:02:45 04/02/2024 22:24:36 [id number] Pablito Lakhani MD [place] [address],[place] [address] 04/04/2024 10:55:28 04/04/2024 12:12:47 Mucous retention cyst of cervix uteri 098337677 N88.8 23-year-ol d female was concern about [...] Spent over 20 minutes on her care. [id number] Pablito Lakhani MD [place] [address],[place] [address] 07/13/2024 10:17:23 07/13/2024 11:04:26 Urinary symptoms [id number] R39.9 Pain in pelvis 29975443 R10.2 Vulvovaginitis 49208140 N76.0 23-year-ol d female who presents for [...] perform surgery on her for ovarian cyst. [id number] Luisa Garcia [place] [address],[place] [address] 07/26/2024 11:25:14 07/26/2024 11:49:05 screening [id number] Z36.87 Z3A.01 [id number] Nurys Yates [place] [address],[place] [address] 08/02/2024 10:58:26 08/02/2024 11:37:31 screening [id number] Z36.87 O36.80X0 Z3A.01 [id number] [facility] [address],[place] [address] 08/13/2024 11:36:08 08/13/2024 12:22:05 Retained products of conception following induced termination of 796159816 O04.89 Z3A.01 [id number] Pablito Lakhani MD [place] [address],[place] [address] 08/13/2024 12:39:21 08/14/2024 09:10:45 Incomplete miscarriage 953862574 O03.4 23-year-ol d female with incomplete . [...] in the event of heavy vaginal bleeding. [id number] [facility] [address],[place] [address] 08/16/2024 08:51:16 08/16/2024 10:01:33 Retained products of conception following induced termination of 906861357 O04.89 Z3A.01 [id number] [place] [address],[place] [address] 08/16/2024 09:10:42 08/16/2024 10:35:01 Retained products of conception 366394090 O72.2 23-year-ol d female with incomplete miscarriag e. We have agreed to perform suction D&C. She understand s the risks, benefits, and alternativ es. She has completed the informed consent process and is ready to proceed. [id number] Pablito Lakhani MD [place] [address],[place] [address] 2024 09:45:55 2024 10:44:07 Incomplete miscarriage 309540426 O03.4 this patient presents for postop follow-up. She is 1 week postop from a suction D&C. She is recovering normally. Her bleeding is minimal. She has no foul-smell ing vaginal discharge. She denies any nausea, vomiting, fever, chills. We discussed contracept ion. We discussed future . She will follow up for a repeat test. To have Mirena placed [id number] Xiao Oates [place] [address],[place] [address] 09/05/2024 13:58:33 09/06/2024 10:14:55 Missed miscarriage 79419552 O02.1 [id number] Pablito Lakhani MD [place] [address],[place] [address] 11/06/2024 15:52:00 11/06/2024 16:50:17 Vulvovaginitis 26184494 N76.0 Dyspareunia 04729188 N94 .10 24-year-ol d female with pain [...] Bernal Member ID Guarantor Name 08/16/2024 1 [facility] Andrea Sharon [id number] Erendira Sharon 08/16/2024 1 [facility] Andrea Sharon [id number] Erendira Sharon 2024 1 [facility] Andrea Sharon [id number] Erendira Sharon 09/05/2024 1 [facility] Andrea Sharon [id number] Erendira Sharon 11/06/2024 1 [facility] Andrea Sharon [id number] Erendira Sharon Notes Date Note Type Note Provider Name [...] infection. Pablito Lakhani MD [address], [place], [address], [facility] 08/16/2024 10:17:02 2024 text/html this [...] placed Pablito Lakhani MD [address], [place], [address], [facility] 2024 10:36:09 11/06/2024 text/html 24-year-old [...] instructions. Pablito Lakhani MD [address], [place], [address], [facility] 11/06/2024 16:47:31 OBGyn Episode Ob Episode Information Episode Created Date Number of Fetuses Patient Bloodtype Patient rh Status Prepregnancy Weight lbs Domestic Partner Domestic Partner Phone Father Name Film Reader Status 08/03/20 21 1 A Positive 180 CLOSED Fetus Data First Name Last Name Admitted to NICU Weight (g) Sex Living Outcome Pediatric Complications Fetus ID Race Codes Race Delivery Type 3090.09 56 F true Full Term terminal meconium & cord around body 1x [id number] Vaginal Delivery Problems Problem Notes MFM - 12/03 1115 u.s only emperatriz wth & complete anatomy. 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 EPDS 10 11/01 [...] Date Ultra Sound Latest Days Gestation 0 [email or web address] 08/03/2021 02/11/20 22 0 Pre-juwan Flowsheet Flowsheet Date 08/03/2021 Caceres Score Blood Edema Fundus Height Fundus Units Glucose Ketones Leukocytes Nitrite Labor Signs Protein Cervic Dilation Cervic Effacement Cervic Station neg none trace Type Weight in lbs Pre/Post Dialysis Refused Weight 179.018478683978 BP Diastolic BP Location Tested BP Systolic [...] Weight in lbs Pre/Post Dialysis Refused Weight 179.162000925256 BP Diastolic BP Location Tested BP Systolic [...] Weight in lbs Pre/Post Dialysis Refused Weight 183.409228744138 BP Diastolic BP Location Tested BP Systolic [...] Weight in lbs Pre/Post Dialysis Refused Weight 187.975132657686 BP Diastolic BP Location Tested BP Systolic [...] Weight in lbs Pre/Post Dialysis Refused Weight 190.734602136643 BP Diastolic BP Location Tested BP Systolic [...] Weight in lbs Pre/Post Dialysis Refused Weight 193.32706140632 BP Diastolic BP Location Tested BP Systolic [...] Weight in lbs Pre/Post Dialysis Refused Weight 196.057546008896 BP Diastolic BP Location Tested BP Systolic BP Type 78 124 Fetus Heart Rate Present A 140 Fetus Movement A Yes Comments PATIENT IS HAVING TROUBLE SL EEPING AND HAVE SOME BH CONTRACTIONS. ambien prn #10 given discussed se risks, unisom [...] Weight in lbs Pre/Post Dialysis Refused Weight 198.538995203920 BP Diastolic BP Location Tested BP Systolic [...] Weight in lbs Pre/Post Dialysis Refused Weight 206.417480499518 BP Diastolic BP Location Tested BP Systolic [...] Weight in lbs Pre/Post Dialysis Refused Weight 207.212066267961 BP Diastolic BP Location Tested BP Systolic [...] Weight in lbs Pre/Post Dialysis Refused Weight 207.173063749654 BP Diastolic BP Location Tested BP Systolic [...] Weight in lbs Pre/Post Dialysis Refused Weight 212.95589876252 BP Diastolic BP Location Tested BP Systolic [...] Weight in lbs Pre/Post Dialysis Refused Weight 212.34539774465 BP Diastolic BP Location Tested BP Systolic [...] Estim ated Date of Delivery false Thalassemia (Ethiopian, Czech, Mediterranean, Or Background): MCV < 80 false Neural Tube Defect (Meningomyelocele, Spina Bifi da, Or Anencephaly) false Congenital Heart Defect false Down Syndrome false Solis-Sachs (eg, Adventist, Cajun, Sinhala-Turkmen) f alse Foreign Disease false Sickle Cell Disease Or Trait () false Hemophilia Or Other Blood Disorders false Muscular Dystrophy false Cystic Fibrosis false [place]'s Chorea false Intellectual Disability/Autism false If Yes, [...] Sterilization Discharge Date Comments 2 Induce d [facility]-Ep idural 39.1 false Blanquita Cage [facility] Discharge Information Feeding Method Contraceptive Method Maternal HG B and HCT Levels Ob Episode Information Episode Created Date Number of Fetuses Patient Bloodtype Patient rh Status Prepregnancy Weight lbs Domestic Partner Domestic Partner Phone Father Name Film Reader Status 08/16/20 24 1 CLOSED Fetus Data First Name Last Name Admitted to NICU Weight (g) Sex Living Outcome Pediatric Complications Fetus ID Race Codes Race Delivery Type , Spontane ous 59815 Toro Calculation Initial Toro Date Initial Exam [...] Domestic Partner Domestic Partner Phone Father Name Film Reader Status 11/24/19 24 1 DELETED Toro Calculation [...]
--- OUTSIDE RECORDS SUMMARY | 2025-01-15 18:22 | XMS_ITS | Data Portability ---
Author Organization [place] - [facility] Badge, Main Office Address [address] [place] [address] Care Team Providers Care Insole Cementer Name Role Phone HANSEL GANNON Primary Care Provider [phone] Assessment Encounter Date Assessment Date Assessment LastModified [...] [facility] as directed. F/u in 1 month. [email or web address] Not available 04/22/2024 12:52:24 10/02/2024 10/02/2024 D/w [...] F/u in 1 month for Annual exam. Not available 10/02/2024 14:38:43 10/14/2024 10/14/2024 24 [...] in 2-3 weeks. Annual labs in 10/20. Not available 10/14/2024 12:14:13 10/24/2024 10/24/2024 23 [...] per schedule. Cont f/u with specialist at [facility] as per schedule. Cont f/u with Ophtho as per schedule. Offered to refer to ENT/sleep study; but pt declined. Wegovy is not covered with her insurance. HM: WWE - 07/18, normal as per pt. Cont f/u with Gyne as per schedule. Flu - 07/18. Tdap, Gardasil - At pharmacy/HD. F/u in 2 months. Annual labs in 10/20. [email or web address] Not available 10/24/2024 14:14:43 12/23/2024 12/23/2024 24 yo F with - WT LOSS PROGRAM - VIT D DEFICIENCY - MIGRAINE - FIBROMYALGIA - B/L TONSILAR HYPERTROPHY, chronic - SNORING - OBESITY I - FH OF MIGRAINE Annual labs: 10/15/24. Wt: 185(10/24/24) - 175(12/23/24) D/w pt about her findings, recent labs & imagines and further plan of care. Meds as directed. Diet and exercise explained in detail. Educated about different options for her. Safe sex education given. Cont f/u with Neuro at [facility] as per schedule. Cont f/[facility] with specialist [facility] as per schedule. Cont f/u with Ophtho as per schedule. Offered to refer to ENT/sleep study; but pt declined. Mansi, Zepbound, Nurtec are not covered with her insurance. HM: WWE - 07/18, normal as per pt. Cont f/u with Gyne as per schedule. Flu - 07/18. Tdap, Gardasil - At pharmacy/HD. F/u in 2 months. Annual labs in 10/20. [email or web address] Not available 12/23/2024 11:42:38 Plan of Treatment Reminders Order Date Submit Date Provider Last Modified By Organization Details Last Modified Time Details Appointments None recorded. Lab magnesium, serum or plasma 2024 025 cris 4 [facility], [address], [address], [place], [address], 5 15:03:29 HbA1c (hemoglobin A1c), blood 2024 025 cris 4 [facility], [address], [place], [address], 5 15:03:29 vitamin D, 25-hydroxy, total, serum 2024 025 cris 4 [facility], [address], [place], [address], 5 15:03:28 cobalamin and folate panel, serum 2024 025 cris 4 [facility], [address], [place], [address], 5 15:03:29 CBC w/ auto diff 2024 025 cris 4 [facility], [address], [place], [address], 5 15:03:27 CMP, serum or plasma 2024 025 cris 4 [facility], [address], [place], [address], 5 15:03:28 lipid panel, serum [address], [address], [place], [address], 5 15:03:28 TSH, serum, reflex free T4 2024 025 4 [facility], [address], [place], [address], 5 15:03:28 urinalysis complete, reflex culture [address], [address], [place], [address], 5 15:03:28 Referral None recorded. Procedures None recorded. Surgeries None recorded. Imaging None recorded. Medication Orders phentermine 30 mg capsule 2024 [facility] #[facility]74, [address] [place], [place], [id number], 5 11:39:20 ergocalcife rol (vitamin D2) 1,250 mcg (50,000 unit) capsule [address] [facility] #69356, [address] [place], [place], [id number], 5 11:39:22 topiramate 25 mg tablet 2024 [facility] #14310, [address], [place], [id number], 5 11:39:08 Zepbound 2.5 mg/0.5 mL subcutaneou s pen injector [address] [facility]31422, [address], [place], [place], [id number], 5 11:42:20 phentermine 15 mg capsule [address] [facility] #57358, [address], [place], [place], [id number], 5 11:42:14 ergocalcife rol (vitamin D2) 1,250 mcg (50,000 unit) capsule 2024 025 [facility] #87034, [address] [facility], [place], [place], [id number], 5 14:11:13 Wegovy 0.25 mg/0.5 mL subcutaneou s pen injector [address] [facility] #69005, [address] [facility], [place], [place], [id number], 5 14:15:06 ondansetron HCl 4 mg tablet 2023 025 [facility] #80723, [address] [facility], [place], [place], [id number], 5 14:31:14 sumatriptan 100 mg tablet 2023 025 [facility] #48700, [address] [place], [place], [id number], 5 14:31:12 topiramate 25 mg tablet 2023 025 [facility] #48567, [address] [facility], [place], [place], [id number], 5 14:31:13 Nurtec ODT 75 mg disintegrat ing tablet 2023 025 [facility] #94094, [address], [place], [place], [id number], 5 14:31:11 ondansetron HCl 4 mg tablet 2023 024 [facility] #65045, [address], [place], [place], [id number], 4 12:25:40 sumatriptan 100 mg tablet 2023 [facility] #71394, [address], [place], [place], [id number], 4 12:55:43 topiramate 25 mg tablet 2023 [facility] #97267, [address], [place], [place], [id number], 12:24:59 Nurtec ODT 75 mg disintegrat ing tablet 2023 [facility] #93488, [address], [place], [place], [id number], 12:52:05 Patient TargetsNo targets recorded. Patient Instructions Encounter Date Encounter Id Patient Instructions Last Modified By Organization Details Last Modified Time 04/22/2024 [id number] starting a weigh t loss plan: care instructions Not available 04/22/2024 12:18:24 learning about obesity [email or web address] Not available 04/22/2024 12:18:24 10/02/2024 [id number] starting a weigh t loss plan: care instructions [email or web address] Not available 10/02/2024 14:31:06 learning about obesity [email or web address] Not available 10/02/2024 14:31:06 10/14/2024 [id number] starting a weigh t loss plan: care instructions [email or web address] Not available 10/14/2024 12:01:43 learning about obesity [email or web address] Not available 10/14/2024 12:01:43 10/24/2024 [id number] starting a weigh t loss plan: care instructions [email or web address] Not available 10/24/2024 14:11:02 learning about obesity [email or web address] Not available 10/24/2024 14:11:02 12/23/2024 [id number] starting a weigh t loss plan: care instructions [email or web address] Not available 12/23/2024 11:38:56 learning about obesity Not available 12/23/2024 11:38:56 Reason for Referral None Reported. Results Created Date Observation Date Name Description Value Unit Range Abnormal Flag Note LastModifiedBy Organization Detail LastModifiedTime Result Notes None recorded. Problems Name Problem SNOMED Code Status Onset Date Resolution Date Notes Provider Name and Address Organization Details Recorded Time Heartburn 17271154 Active 2021 Not Available [facility] 3 10:44:31 Asthma 472117692 Active 2021 Not Available [facility] 3 10:44:31 Fibromyalgia 857994189 Active 2021 Not Available [facility] 10:44:32 Anxiety 06439550 Active 2021 Not Available [facility] 3 10:44:32 Low back pain 286568465 Active 2022 Anneliese Malik NP [address], [address], [place], [address] , [employer] 3 15:00:51 Small fiber neuropathy 908311938 Active 2022 Anneliese Malik NP [address], [address], [place], [address] , [employer] 3 15:05:07 COVID-19 370451691 Active 2023 Hansel Gannon MD [address], [address], [place], [address] , [email or web address] 4 12:29:05 Obesity 262092028 Active 2023 Hansel Gannon MD [address], [address], [place], [address] , [facility] [employer] [facility] 4 12:09:31 Migraine with aura 6874150 Active 2023 Hansel Gannon MD [address], [address] [address], [place], [address] , [facility] [employer] [facility] 4 12:18:44 Nausea 823990524 Active 2023 Hansel Gannon MD [address] [facility] [address], [place], [address] , [facility] [employer] [facility] 4 12:24:58 Vitamin D deficiency 24606499 Active 2024 Hansel Gannon MD [address] [address], [place], [address] , [facility] [employer] [facility] 5 14:08:20 Problem Notes None recorded. Procedures Surgical History Date Name Laterality Status Provider Name and Address Organization Details Recorded Time 10/28/2022 Date of Last Pap Smear completed Anneliese Schmidt RN [facility] 12/20/2022 14:44:07 Imaging Results None recorded. Procedure Notes None recorded. Medical Equipment None Reported. Allergies Allergen ID Allergen Name Allergen Category Reaction Reaction Severity Criticality Documentation Date Start Date Code Code System Note Provider Name and Address Organization Details Recorded Time 94459 Benadryl medicatio n itching swelling mild mild low 10/02/2024202445 7 RxNorm swell ing is to throa t, but told mild react ion Nohemi Gregorio RN [facility], [facility] Badge 5 14:19:35 Medications Name Sig Start Date Stop [...] Available Not Available fluconazole 150 mg tablet 12/23 completed Not Available Not Available Not Available benzonatate [...] route in the morning for 30 days. 12/23 completed Not Available Not Available Not Available topiramate 25 mg tablet Take 1 tablet twice a day by oral route as directed for 30 days. 2024 active Not Available Not Available Not Avai lable phentermine 30 mg capsule Take 1 capsule every day by oral route in the morning for 30 days. 2024 active Not Available Not Available Not Avai lable oxycodone-a cetaminophe n 5 mg-325 mg tablet [...] every week by oral route as directed. 2024 active Not Available Not Available Not Avai lable estradiol 0.01% (0.1 mg/gram) vaginal cream 12/20 [...] completed Not Available Not Available Not Available Nurtec ODT 75 mg disintegrat ing tablet Take [...] 2.5 mg/0.5 mL subcutaneou s pen injector Inject 2.5 mg every week by subcutane ous route as directed for 30 days. 12/23 completed Not Available Not Available Not Available Vitals Date Recorded Body height Body mass index (BMI) Body weight Body temperature Heart rate Respiratory rate Oxygen saturation Oxygen saturation in Arterial blood by Pulse oximetry Systolic blood pressure Diastolic blood pressure Provider Name and Address Organization Details Last Updated DateTime 4 160.02 cm 35.1 kg/m2 96370.0 1 g 98 [degF] 62 /min 16 /min 99 % 99 % 116 mm[Hg] 66 mm[Hg] Willie Peres [facility] [employer] [facility] 4 12:15:22 Date Recorded Body height Body mass index (BMI) Body weight Body temperature Oxygen saturation Oxygen saturation in Arterial blood by Pulse oximetry Heart rate Systolic blood pressure Diastolic blood pressure Provider Name and Address Organization Details Last Updated DateTime 5 160.02 cm 33 kg/m2 51915.9 8 g 98.1 [degF] 99 % 99 % 91 /min 118 mm[Hg] 72 mm[Hg] Nohemi Gregorio RN [facility] [employer] [facility] 5 14:17:21 Date Recorded Body height Body mass index (BMI) Body weight Body temperature Oxygen saturation Oxygen saturation in Arterial blood by Pulse oximetry Heart rate Systolic blood pressure Diastolic blood pressure Provider Name and Address Organization Details Last Updated DateTime 5 160.02 cm 32.6 kg/m2 19536 g 98.1 [degF] 98 % 98 % 90 /min 110 mm[Hg] 70 mm[Hg] Nohemi Gregorio RN [facility] [employer] [facility] 5 11:36:08 Date Recorded Body height Body mass index (BMI) Body weight Body temperature Oxygen saturation Oxygen saturation in Arterial blood by Pulse oximetry Heart rate Systolic blood pressure Diastolic blood pressure Provider Name and Address Organization Details Last Updated DateTime 5 160.02 cm 32.8 kg/m2 68642.6 9 g 97.5 [degF] 96 % 96 % 83 /min 120 mm[Hg] 70 mm[Hg] Nohemi Gregorio RN [facility] [employer] [facility] 5 14:03:59 Date Recorded Body height Body mass index (BMI) Body weight Body temperature Oxygen saturation Oxygen saturation in Arterial blood by Pulse oximetry Heart rate Systolic blood pressure Diastolic blood pressure Provider Name and Address Organization Details Last Updated DateTime 5 160.02 cm 31.1 kg/m2 52739.7 6 g 97.3 [degF] 96 % 96 % 90 /min 110 mm[Hg] 70 mm[Hg] Nohemi Gregorio RN [place] [facility] 5 11:33:34 Social History Question Answer Notes LastModified by Organization Details LastModified Time Tobacco Smoking Status Never Smoker Not Available [employer] 11/23/2022 10:40:58 Do You Have An Advance Directive? No MIGRATION.030 [id number] Information not available 11/23/2022 What Is Your Level Of Alcohol Consumption? Occasional [email or web address] Information not available 10/14/2024 How Many Years Have You Consumed Alcohol? 3 [email or web address] Information not available 10/14/2024 Do You Wear A Helmet When Biking? No MIGRATION.[id number] Information not available 11/23/2022 Is Blood Transfusion Acceptable In An Emergency? Yes Information not available 12/20/2022 What Is Your Level Of Caffeine Consumption? Heavy 2 -3 Sodas 1 Coffee [email or web address] Information not available 10/14/2024 What Is Your Code Status? Full Code Information not available 12/20/2022 In The 14 Days Before Symptom Onset, Have You Had Close Contact With A Laboratory-confi rmed COVID-19 While That Case Was Ill? No MIGRATION.[id number] Information not available 11/23/2022 In The 14 Days Before Symptom Onset, Have You Had Close Contact With A Person Who Is Under Investigation For COVID-19 While That Person Was Ill? No MIGRATION.[id number] Information not available 11/23/2022 Are You Currently Employed? Yes Information not available 12/20/2022 What Type Of Diet Are You Following? REGULAR MIGRATION.300035 Information not available 11/23/2022 What Is The Highest Grade Or Level Of School You Have Completed Or The Highest Degree You Have Received? PA24305-7 MIGRATION.300035 Information not available 11/23/2022 How Many Days Of Moderate To Strenuous Exercise, Like A Brisk Walk, Did You Do In The Last 7 Days? 0 Information not available 12/20/2022 Have There Been Any Changes To Your Family Or Social Situation? Yes 20 Weeks MIGRATION.030 873619 Information not available 11/23/2022 What Is The Fluoride Status Of Your Home? Unknown MIGRATION.030 847965 Information not available 11/23/2022 Are There Any Guns Present In Your Home? No MIGRATION.0301 402544 Information not available 11/23/2022 Do You Use Insect Repellent Routinely? Yes MIGRATION.0301 386051 Information not available 11/23/2022 Where Do You Live? [place]House MIGRATION.030 867324 Information not available 11/23/2022 Do You Have A Medical Power Of International Student Counselor? No MIGRATION.030 083112 Information not available 11/23/2022 How Many Children Do You Have? 1 Information not available 12/20/2022 Do You Have Any Pets? Yes MIGRATION.030 606343 Information not available 11/23/2022 Do You Use Protection During Sex? No Information not available 12/20/2022 What Is Your Relationship Status? Information not available 12/20/2022 Do You Use Your Seat Belt Or Car Seat Routinely? Yes MIGRATION.030 329199 Information not available 11/23/2022 Are You Sexually Active? Yes Information not available 12/20/2022 Do You Have Smoke And Carbon Monoxide Detectors In Your Home? Yes MIGRATION.030 267834 Information not available 11/23/2022 Are You Passively Exposed To Smoke? No MIGRATION.030 639467 Information not available 11/23/2022 Are There Any Smokers In Your House? No MIGRATION.0301 886486 Information not available 11/23/2022 Do You Participate In Social Media? Yes MIGRATION.030 186066 Information not available 11/23/2022 What Types Of Sporting Activities Do You Participate In? NA MIGRATION.030 835209 Information not available 11/23/2022 Do You Feel Stressed (tense, Restless, Nervous, Or Anxious, Or Unable To Sleep At Night)? [id number] MIGRATION.0301 335990 Information not available 11/23/2022 Do You Use Sunscreen Routinely? Yes MIGRATION.0301 253289 Information not available 11/23/2022 Has Tobacco Cessation Counseling Been Provided? No MIGRATION.0301 361758 Information not available 11/23/2022 Have You Recently Traveled Abroad? No MIGRATION.0301 066168 Information not available 11/23/2022 Are You Currently In School? Yes MIGRATION.0301 241945 Information not available 11/23/2022 Do You Have Any Dietary Restrictions? No MIGRATION.0301 225374 Information not available 11/23/2022 Do You Or Have You Ever Used Any Other Forms Of Tobacco Or Nicotine? No MIGRATION.0301 315817 Information not available 11/23/2022 Sex: Female Functional Status Question Answer Note LastModified by Organizat ion Details LastModified Time What is your exercise level? Occasional MIGRATION.[id number] 35 Information not available 11/23/2022 Mental Status None recorded. Family History Relationship Description Onset Age of this Age Resolved Age Notes LastModified by Organization Details LastModified Time Father Diabetes mellitus MIGRATION.574 [id number] Not available 11/23/2022 10:41:38 Mother Asthma MIGRATION.601 [id number] Not available 11/23/2022 10:41:38 Mother Multiple sclerosis 48 MIGRATION.000 [id number] Not available 11/23/2022 10:41:38 Medical History Condition [...] SHINGLES N FEMALE PROBLEMS / INFECTIONS N DEPRESSION (INCLUDING POST ) N BOWEL PROBLEMS N STROKE/TIA N THYROID DISEASE N ULCERS [...] INSOMNIA N HIGH CHOLESTEROL / HYPERLIPIDEMIA N HYPERTHYROIDISM N EYE PROBLEMS N EATING DISORDER N EDEMA N CHRONIC PAIN SYNDROME N CONSTIPATION N CAROTID BLOCKAGE N BACK / NECK PROBLEMS N HAVE YOU BEEN HOSPITALIZED OR SEEN IN [facility] IN THE PAST YEAR ? N ATHEROSCLEROSIS [...] DISORDER N ALZHEIMER'S DISEASE N PAIN N HERPES N DEMENTIA N SEIZURES/EPILEPSY N HEADACHES/MIGRAINES N VASCULAR DISEASE N PACEMAKER N DIZZINESS N KIDNEY DISEASE N HEART DISEASE/HEART PROBLEMS N SCARLET FEVER N MULTIPLE SCLEROSIS N MENTAL DISORDER/ILLNESS N DEVELOPMENTAL OR BEHAVIORAL DISORDERS N CARDIAC ARRHYTHMIA N CANCER: SPECIFY N PNEUMONIA N Gall Stones N ATRIAL FIBRILLATION N PULMONARY EMBOLISM N AUTOIMMUNE DISEASE N [...] Anneliese Schmidt RN null, [place] [facility] 05/25/2023 11:10:58 Past Encounters Encounter ID Performer Location Encounter Start Date Encounter Closed Date Diagnosis/Indication Diagnosis SNOMED-CT Code Diagnosis ICD10 Code Diagnosis Note [id number] [address] [address] 10/26/2021 00:00:00 10/26/2021 16:59:[id number] [place] [address] 03/23/2022 00:00:00 03/23/2022 18:03:[id number] [address] 05/18/2022 00:00:00 05/18/2022 16:53:37 [id number] Anneliese Malik NP [address] [address] 12/20/2022 14:32:22 12/20/2022 15:26:59 Adult health examination 533724068 Z00.00 Encouraged well balanced meals, active lifestyle, and routine vision and dental appts. Low back pain 167529838 M54.50 Seeing chiro. Will update imaging. Small fibe r neuropathy 473846425 G62.89 Duloxetine 20 mg po daily. Anemia screening 6059447 07 Z13.0 Diabetes m ellitus screening 024503647 Z13.1 Thyroid di sorder screening 163200390 Z13.29 Hyperlipid emia screening 661821522 Z13.220 [id number] Anneliese Malik NP [address] [address] 12/21/2022 09:48:55 12/21/2022 10:02:19 [id number] Anneliese Malik NP [address] [address] 05/25/2023 10:33:19 05/25/2023 10:43:03 Administration of influenza vaccine 30512263 Z23 [id number] Hansel Gannon MD [address] [address] 04/22/2024 12:07:29 04/22/2024 12:57:58 Obesity 484323602 E66.9 Migraine with aura 83327 06 G43.109 Family his tory of Migraine 302994340 Z82.0 Nausea 123378330 R11.0 Fibromyalgia 472943699 M 79.7 Cont f/u with specialist at [facility] as directed. [id number] Hansel Gannon MD [address] [address] 10/02/2024 14:08:03 10/02/2024 14:38:45 Migraine with aura 4690190 G43.109 Family his tory of Migraine 961108258 Z82.0 Nausea 123289168 R11.0 Fibromyalgia 647143132 M 79.7 Cont f/u with specialist at [facility] as directed. Obesity 575059499 E66.9 [id number] Hansel Gannon MD [address] [address] 10/14/2024 11:26:20 10/14/2024 12:08:24 Fibromyalgia 994427974 M79.7 Cont f/u with specialist at [facility] as directed. Obesity 523582329 E66.9 Adult heal th examination 033721195 Z00.00 Migraine with aura 06646 06 G43.745 [id number] Hansel Gannon MD [address] [address] 10/24/2024 13:56:09 10/24/2024 14:19:11 Migraine with aura 5056896 G43.109 Fibromyalgia 115496271 M 79.7 Obesity 042420395 E66.9 Vitamin D deficiency 347 60473 E55.9 [id number] Hansel Gannon MD [address] [address] 12/23/2024 11:25:17 12/23/2024 12:04:21 Vitamin D deficiency 11923725 E55.9 Migraine with aura 67048 06 G43.109 Fibromyalgia 187928899 M 79.7 Obesity 023449498 E66.9 Health Concerns Section Related Observation LastModified by Organization Detai ls LastModified Time None Recorded Concern Status LastModified by Organization Details LastModified Time None Recorded Advance Directives Directive N: Payers Encounter Date Sequence Insurance Name Policy Number Policy Bernal Covered Member ID Bernal Member ID Guarantor Name 04/22/2024 1 [facility] Andrea Herrera [id number] Erendira Herrera 10/02/2024 1 [facility] Andrea Aguayoo [id number] Erendira Sharon 10/14/2024 1 [facility] Andrea Aguayoo [id number] Erendira Sharon 10/24/2024 1 [facility] Andrea Aguayoo [id number] Erendira Sharon 12/23/2024 1 [facility] Andrea Aguayoo [id number] Erendira Aguayoo Notes Date Note Type Note [...] Gannon MD [address], [address], [place], [address], [email or web address] [facility] 04/22/2024 12:52:47 10/02/2024 text/html Pt is here for f /u on her meds and chronic conditions. Doing overall well. Denies any problem with meds. Last visit in 04/17. C/o migraine with aura since she was in elementary school. Pt says she has strong FH of migraine too. Pt has seen Neuro at [facility] for this and had multiple testing with them and all came back good as per pt. Pt sees eye doctor & Gyne regularly. Hansel Gannon MD [address], [address], [place], [address], [email or web address] [facility] 10/02/2024 14:39:10 10/14/2024 text/html Pt is here for h er annual exam. Doing overall well. Denies any problem with meds. Denies any new concern. C/o migraine with aura since she was in elementary school. Pt says she has strong FH of migraine too. Pt has seen Neuro at [facility] for this and had multiple testing with them and all came back good as per pt. Pt sees eye doctor & Gyne regularly. Hansel Gannon MD [address], [address], [place], [address], [employer] 10/14/2024 12:14:24 10/24/2024 text/html Pt is here for f /u on her annual labs. Doing overall well. Denies any problem with meds. Denies any new concern. C/o migraine with aura since she was in elementary school. Pt says she has strong FH of migraine too. Pt has seen Neuro at [facility] for this and had multiple testing with them and all came back good as per pt. Pt sees eye doctor & Gyne regularly. Hansel Gannon MD [address] [facility], [facility] [address], [place], [address], [employer] 10/24/2024 14:15:31 12/23/2024 text/html Pt is here for f /u on her meds and chronic conditions. Doing overall well. Denies any problem with meds. Denies any new concern. Happy with Phentermine result. So far, 10 lbs wt loss on it. Zepbound is too costly for pt. C/o migraine with aura since she was in elementary school. Pt says she has strong FH of migraine too. Pt has seen Neuro at [facility] for this and had multiple testing with them and all came back good as per pt. Pt sees eye doctor & Gyne regularly. Hansel Gannon MD [address] [facility], [facility] [address], [place], [address], [employer] 12/23/2024 11:43:33 OBGyn Episode No OBEpisode recorded.
--- OUTSIDE RECORDS SUMMARY | 2025-01-15 18:22 | XMS_ITS | Referral Summary ---
Author Organization [facility] [place] Address [address] [place] [id number] Care Team Providers Care Automatic Riveting Machine Operator Name Role Phone KingAnneliese FORMING PRESS OPERATOR Primary Care Provider + Allergies No known [...] Plan of Treatment Not on file Insurance [facility] Care Teams Automatic Riveting Machine Operator Relationship Specialty Start Date End Date Anneliese Malik NP PCP - General Nurse Practitioner 04/12/22
--- NOTE | 2025-01-15 18:30 | ED_ITS ---
HPI - URI/Sore Throat General Chief Complaint: Upper Respiratory Infection Stated Complaint: strep symptoms Time Seen by Provider: 01/15/25 18:45 Source: patient Mode of arrival: ambulatory Limitations: no limitations History of Present Illness HPI Narrative: Here for sore throat. She reports sore throat and headache that started on Monday. She reports her daughter has strep throat and is currently taking antibiotics for this concern. She also reports she has shared eating utensils with her daughter with strep. she is requesting antibiotics today for strep throat. She denies any symptoms outside of sore throat and headache. Denies fever. and denies nausea, vomiting, and diarrhea. Denies body aches. she also reports noticing a sore area in her mouth today on the inner upper left lip. she denies any history of herpes. Related Data Home Medications ?Medication ?Instructions ?Recorded ?Confirmed ?Last Taken ?Type albuterol sulfate 90 mcg/actuation 2 puff inhalation QID PRN Dyspnea 08/16/24 01/15/25 Unknown History aerosol inhaler phentermine 30 mg capsule mg 01/15/25 Unknown History Allergies Allergy/AdvReac Type Severity Reaction Status Date / Time Latex, Natural Rubber Allergy Rash Verified 01/15/25 18:21 diphenhydramine (From AdvReac Anxiety Verified 01/15/25 18:21 Benadryl) Review of Systems Review of Systems: CONSTITUTIONAL: Denies fever, chills, or sweats. EYES: Denies visual changes, redness, or discharge. ENT: Denies rhinorrhea, congestion, or otalgia. reports sore throat. Reports sore on left inner upper lip. CARDIOVASCULAR: Denies chest pain, palpitations, or edema. RESPIRATORY: Denies cough or dyspnea. GASTROINTESTINAL: Denies abdominal pain, nausea, vomiting, or diarrhea. GENITOURINARY: Denies dysuria or hematuria. SKIN: Denies rash or itching. MUSCULOSKELETAL: Denies back pain, joint pain, or myalgia. NEUROLOGIC: Denies numbness, or weakness. reports headache. PSYCHIATRIC: Denies anxiety or depression. All other systems reviewed are negative, except as documented in HPI. FOR[facility]LY [facility] Past Medical History Medical History Anxiety and depression Asthma Eczema Fibromyalgia Migraines Obese Surgical History Surgical History Hx of tympanostomy tubes Family History Family History Mother Chronic obstructive pulmonary disease Asthma Lupus Pacemaker Depression Multiple sclerosis A-fib Father Diabetes mellitus Kidney failure Anxiety Gout Sibling Asthma Sibling Asperger's disorder Autism Asthma Social History Social History Smoking status: Never smoker Alcohol intake: never Substance use: never Living arrangements: with family Occupation/Education: student Gender identity (if verbalized by the patient): Female Spiritual care concerns: No Comments At time of signature, I have reviewed and agree with nursing past medical, surgical, social and family history unless otherwise noted. Please see nursing chart for further information. There is no relevant family history pertinent to the presenting complaint. Exam Narrative: GENERAL: This is a well-nourished, well-developed patient, in no apparent distress. HEAD: normocephalic, atraumatic. EYES: Sclera clear/white. Vision is grossly intact. EARS: External ears normal, auditory canals clear and without drainage, TMs normal without perforation. Hearing grossly intact. NOSE: External nose normal with no obvious nasal discharge, nares without redness, + rhinorrhea. Mouth: Canker sore noted to left inner upper lip. THROAT: Mucous membranes moist, posterior pharynx erythematous with tonsils 2+. no exudates. NECK: Neck supple, non-tender without lymphadenopathy. CARDIOVASCULAR: Regular rate and rhythm without murmurs, gallops, or rubs. RESPIRATORY: Clear to auscultation. Breath sounds equal bilaterally. No wheezes, rales, or rhonchi. SKIN: warm, Dry, intact with no suspicious lesions or rash, good texture and turgor. NEURO: awake, alert, and oriented to person, place and time. There were no obvious focal neurologic abnormalities. EXTREMITIES: No joint tenderness, effusion, or edema noted. Course Course Level of Care: Express Care Visit Vital Signs Vital signs: reviewed MDM - URI/Sore Throat MDM Narrative Medical decision making narrative: Rapid strep test was negative today in office. Strep culture was sent to lab. Used shared decision making with patient. Considering known strep exposure in her home, patient requests antibiotic treatment. We discussed risks and benefits of this, and she was started on amoxicillin for exposure to strep throat. Culture results will return in 2-3 days. As she had strep last month, we reviewed precautions including changing toothbrush. She verbalized understanding. Patient is aware of diagnosis, understands and agrees to treatment plan. Anticipatory guidance was given. Discussed physical exam findings with patient and reviewed prescriptions. Patient agrees to follow-up as directed and is aware of reasons to seek care at the emergency department. Discharge instructions were reviewed with the patient, as well as provided in writing per nursing staff. All questions have been answered, and the patient denies any further questions related to discharge or discharge plan. Lab Data Lab results narrative: rapid strep test negative today. strep culture sent to lab. Discharge Plan Discharge Clinical Impression: Exposure to Streptococcal pharyngitis Patient Disposition: Home Condition: Stable Instructions: Strep Throat (ED), Antibiotic Form Additional Instructions: You were treated today for strep exposure and sore throat. the rapid strep test was negative and a strep culture was sent to the lab. you will be contacted with strep culture results in 2-3 days if positive. Take medications as prescribed and follow printed instructions. May take over the counter acetaminophen and/or ibuprofen by mouth as needed/directed for pain/fever. May use over the counter throat sprays and lozenges to help with throat pain. Warm salt water gargles. Push fluids and soft diet; advance as tolerated. No juices or sodas as this will increase pain. Do not share eating or drinking utensils. Change toothbrush after 3 days. Nutrition is important - eat small frequent meals. Call your Primary Care Doctor today to make a follow-up appointment. Go to the ER for any worsening symptoms or concerns Patient Language: Occitan Prescriptions: New amoxicillin 500 mg capsule 500 mg PO Q12H 10 Days Qty: 20 0RF No Action phentermine 30 mg capsule albuterol sulfate 90 mcg/actuation HFA aerosol inhaler 2 puff inhalation QID PRN (Reason: Dyspnea) Follow-up/Referrals: Jagdeep,MD Hansel [Primary Care Provider] - Time of Disposition: 19:04
[2025-01-15 18:33] VITALS: BP 103/62; PULSE 76; RESP 18; TEMP 36.6; O2SAT 100
[2025-01-15 18:40] LABS: EDSTREPNEGPOS1 Negative (Negative)
== END 2025-01-15 19:08 | disposition home or self-care (01) ==
PROVIDERS: Emergency Provider Nurse Practitioner; PCP Family Medicine
DX: Z20.818 Contact with and (suspected) exposure to other bacterial communicable diseases (principal); J45.909 Unspecified asthma, uncomplicated; M79.7 Fibromyalgia; E66.9 Obesity, unspecified; Z68.31 Body mass index [BMI] 31.0-31.9, adult
CPT/HCPCS: 87081; 87880; 99213; G0463

== ENCOUNTER 2025-01-31 09:17 | Emergency (ER) | payer OTHER, SELFPAY ==
[2025-01-31 09:28] VITALS: BP 100/73; PULSE 73; RESP 18; TEMP 36.6; O2SAT 100
--- NOTE | 2025-01-31 09:34 | ED_ITS ---
HPI - Dizziness General Chief Complaint: Dizziness Stated Complaint: WEAK/DIZZY Time Seen by Provider: 01/31/25 09:34 Source: patient, RN notes reviewed and old records reviewed Mode of arrival: ambulatory Limitations: no limitations History of Present Illness HPI Narrative: 24 year old female who presents to [facility] with complaints feeling lightheaded and dizzy which started last night. Patient reports that she just feels off, has had some nausea with no vomiting dizziness with changing positions and when walking less when sitting. Patient reports that she was treated with antibiotic in December for exposure to strep throat from daughter, denies any sore throat or any sinus congestion at this time. Patient also reports that she has been having some neck discomfort for the past 3 weeks and has been seeing chiropractor for those symptoms. Patient does have history of migraines and has been having more frequent migraines for the past 3 weeks also, patient reports severe migraine about 1 week ago with vomiting for about 4 hours. Patient reports dose of phentermine has been increased in past 3 weeks but feels is tolerating medication well. MD elicited complaint: dizziness Pertinent past history: other (history of migraines, and some neck discomfort 3 weeks) Onset (ago): day(s) (since last night) Severity: mild Description: other (dizziness and some nausea) History of similar symptoms: No Related Data Home Medications ?Medication ?Instructions ?Recorded ?Confirmed ?Last Taken ?Type albuterol sulfate 90 mcg/actuation 2 puff inhalation QID PRN Dyspnea 08/16/24 01/15/25 Unknown History aerosol inhaler phentermine 30 mg capsule 30 mg PO DAILY 01/15/25 01/31/25 Unknown History ergocalciferol (vitamin D2) 1,250 5,000 mcg PO WEEKLY 01/31/25 01/31/25 Unknown History mcg (50,000 unit) capsule ulipristal 30 mg tablet (Melva) 30 mg PO DAILY 01/31/25 01/31/25 Unknown History Allergies Allergy/AdvReac Type Severity Reaction Status Date / Time Latex, Natural Rubber Allergy Rash Verified 01/31/25 09:25 diphenhydramine (From AdvReac Anxiety Verified 01/31/25 09:25 Benadryl) Review of Systems Review of Systems: CONSTITUTIONAL: Denies malaise, chills, sweats, or fever. EYES: Denies visual changes, redness, or discharge. ENT: Reports occasional rhinorrhea, congestion,no sinus pain,no otalgia and no sore throat. CARDIOVASCULAR: Denies chest pain, palpitations, or edema. RESPIRATORY: Reports no cough.? Denies dyspnea. GASTROINTESTINAL: Denies abdominal pain, reports some nausea,no recent vomiting,no diarrhea SKIN: Denies rash or itching. MUSCULOSKELETAL: Denies myalgia. NEUROLOGIC: Denies present headache pain has history of migraines with increase in migraines for past 3 weeks.report dizziness with position changes and when walking states mild All systems reviewed & are unremarkable except as noted in HPI and below PMFSH Past Medical History Medical History Obese Anxiety and depression Eczema Fibromyalgia Migraines Asthma Surgical History Surgical History Hx of tympanostomy tubes Family History Family History Mother Chronic obstructive pulmonary disease Asthma Lupus Pacemaker Depression Multiple sclerosis A-fib Father Diabetes mellitus Kidney failure Anxiety Gout Sibling Asthma Sibling Asperger's disorder Autism Asthma Social History Social History Smoking status: Never smoker Alcohol intake: never Substance use: never Living arrangements: with family Occupation/Education: student Gender identity (if verbalized by the patient): Female Spiritual care concerns: No Comments At time of signature, agree with nursing past medical, surgical, social and family history. There is no relevant family history pertinent to the presenting complaint Exam Narrative: GENERAL: Well-appearing, well-nourished, and in no acute distress. HEAD: Normocephalic EYES: PERRLA, conjunctivae clear ENT: Nares clear, turbinates edematous and erythematous, clear discharge. Mucous membranes moist. TM pearly duval with dull light reflex bilaterally;some fluid noted right ear no tragal tenderness. Oropharynx erythematous without lesions. Tonsils not enlarged and without exudate, no drooling, no hoarseness, no trismus, uvula midline. NECK: Supple. No lymphadenopathy reports some neck discomfort for which she has been seeing chiropractor full ROM no nuchal ridigity CHEST: Clear to auscultation, breath sounds equal. No wheezing, rhonchi, rales, or stridor. No respiratory distress, speaks in full sentences.no cough noted S AO2 100% on room air HEART: Regular rate and rhythm. No murmur heard. SKIN: Warm, dry, no rash. NEURO: Alert and oriented x3. PSYCH: Normal mood and affect Course Course Emergency Course: Patient is aware of diagnosis, understands and agrees to treatment plan.? Anticipatory guidance given.? Patient agrees to follow-up as directed and is aware of reasons to seek care at the emergency department. Portions of this record may have been created with voice recognition software Level of Care: Express Care Visit Vital Signs Vital signs: Vital Signs Temperature 36.6 C 01/31/25 09:28 Pulse Rate 73 01/31/25 09:28 Respiratory Rate 18 01/31/25 09:28 Blood Pressure 100/73 01/31/25 09:28 Pulse Oximetry 100 01/31/25 09:28 Temperature 36.6 C 01/31/25 09:28 Pulse Rate 73 01/31/25 09:28 Respiratory Rate 18 01/31/25 09:28 Blood Pressure 100/73 01/31/25 09:28 Pulse Oximetry 100 01/31/25 09:28 Reviewed MDM - Dizziness Differential Diagnosis Differential diagnosis: Likely other (eustachian tube dysfunction,migraine headaches, dizziness, nausea alone) Medical Records Attestation: I reviewed the patient's medical records. Lab Data Attestation: I reviewed the patient's lab results. Lab results narrative: urine dip reviewed urine negative Labs: Lab Results 01/31/25 Range/Units 09:43 POC Urine Color Yellow POC Urine Clarity Clear POC Urine pH 6.5 POC Ur Specif Ryder 1.020 POC Urine Protein Negative (Negative) POC Ur Glucose (UA) Negative (Negative) POC Urine Ketones Negative (Negative) POC Urine Blood Negative (Negative) POC Urine Nitrite Negative (Negative) POC Urine Bilirubin Negative (Negative) POC Urine Urobilinogen 0.2 POC U Leukocyte Esteras Negative (Negative) POC Urine HCG, Qual Negative (Negative) Critical Care Time Critical Care Time Critical Care Time: No Discharge Plan Discharge Clinical Impression: Dysfunction of right eustachian tube, Nausea Patient Disposition: Home Condition: Stable Instructions: Barotrauma (ED), Dizziness (ED) Additional Instructions: Increase fluids especially juices and water [id number] cough and cold medicine of your choice for your symptoms Zyrtec Claritin or Chloe daily include plain Sudafed in a.m. Continue your inhaler/nebulizer as directed Steroids as directed--take with food heat to the face 20-30 minutes 4-6 times a day for pain Salt water gargles, throat lozenges or throat sprays as desired Zofran for nausea If your symptoms persist, change or worsen significantly before you can contact your personal physician then please, without delay, go to the emergency department for further evaluation. Follow-up with PCP in 7-10 days or sooner if needed follow-up with PCP in regards to your migraines and possible follow-up with Neurology Patient Language: Indian Prescriptions: New methylprednisolone [Medrol (Deion)] 4 mg tablets,dose pack See Rx Instructions .ROUTE .COMPLEX Qty: 21 0RF Rx Instructions: orally per package directions ondansetron 4 mg tablet,disintegrating 4 mg PO Q6H PRN (Reason: nausea and vomiting) Qty: 14 0RF No Action phentermine 30 mg capsule 30 mg PO DAILY amoxicillin 500 mg capsule 500 mg PO Q12H 10 Days Qty: 20 0RF ergocalciferol (vitamin D2) 1,250 mcg (50,000 unit) capsule 5,000 mcg PO WEEKLY Melva 30 mg tablet 30 mg PO DAILY albuterol sulfate 90 mcg/actuation HFA aerosol inhaler 2 puff inhalation QID PRN (Reason: Dyspnea) Follow-up/Referrals: Jagdeep,MD Hansel [Primary Care Provider] - Time of Disposition: 10:06 Quality [place] Coma Scale Eyes: Open Verbal: Oriented and Alert Motor: Follows Commands [place] Coma Total Score: 15
[2025-01-31 09:45] LABS: BEDSIDEPREGUCG Negative (Negative); EDUAAPPEAR Clear; EDUABILI Negative (Negative); EDUABLOOD Negative (Negative); EDUACOLOR1 Yellow; EDUAGLUCOSE Negative (Negative); EDUAKETONE Negative (Negative); EDUALEUKO Negative (Negative); EDUANITRATE Negative (Negative); EDUAPH 6.5; EDUAPROTEIN Negative (Negative); EDUAUROBILI 0.2
== END 2025-01-31 10:08 | disposition home or self-care (01) ==
PROVIDERS: Emergency Provider Registered Nurse; PCP Family Medicine
DX: H69.91 Unspecified Eustachian tube disorder, right ear (principal); R11.0 Nausea; M79.7 Fibromyalgia; J45.909 Unspecified asthma, uncomplicated; E66.9 Obesity, unspecified; Z68.29 Body mass index [BMI] 29.0-29.9, adult
CPT/HCPCS: 81003; 81025; 99213; G0463